=== PATIENT | female | born 1965 | race Caucasian/White ===

== ENCOUNTER 2017-03-24 17:58 | Emergency (ER) | payer MEDICARE ==
--- NOTE | 2017-03-24 18:56 | ED Physician Documentation ---
PD HPI Fall - Stated complaint Stated Complaint: TAIL BONE/ELBOW INJ - Chief complaint Chief Complaint: Ext Problem - History obtained from History obtained from: Patient - History of Present Illness Mechanism of injury: Slipped ([place]ing [place] and slipped on wet log, causing fall dirctly down onto her tailbone/sacrum. Pain tailbone and also lumbar area. history of lumbar pain on chronic meds, with current pain just midly above regular.) Fall distance: Standing position Where injury occurred: Other (beach) Timing - onset: Today Injury(ies) location: Back (low lumbar and sacral/tailbone area. right elbow laceration but good ROM.). No: Head, Neck, Chest, Abdomen Quality of pain: Pain, Aching, Sharp Associated symptoms: No: LOC, AMS Worsens with: Movement (standing and walking) Contributing factors: No: Anticoagulated Similar symptoms before: Has not had sx before (not usually pain in tailbone/ sacral area; has chronic pain in lumbar.) Recently seen: Not recently seen Review of Systems Constitutional: denies: Fever, Chills Ears: denies: Ear pain Nose: denies: Rhinorrhea / runny nose, Congestion Throat: denies: Sore throat Cardiac: denies: Chest pain / pressure, Palpitations Respiratory: denies: Cough GI: denies: Nausea, Vomiting, Diarrhea Skin: reports: Laceration (s) (right elbow). denies: Rash, Lesions Musculoskeletal: reports: Back pain (chronic with slightly worse than baseline since fall.). denies: Neck pain Neurologic: denies: Generalized weakness, Focal weakness, Numbness PD PAST MEDICAL HISTORY - Past Medical History Past Medical History: Yes Cardiovascular: High cholesterol, Angina, Arrhythmia Neuro: Headache/migraine GI: Diverticulitis Psych: Depression Musculoskeletal: Osteoarthritis, Fibromyalgia Derm: None Other Past Medical History: Vit B deficiency, Basal cell carcinoma, colitis gravis, degenerative disc disease, edema, fatigue, herniation of rectum into vagina, insomnia, Inflammatory spondylopathies, Systemic lupus erythematous, TMJ , uterine leiomyoma, - Present Medications Home Medications: Ambulatory Orders Medication Instructions Recorded Confirmed ALPRAZolam [Alprazolam] 0.5 mg PO TID PRN 03/24/17 03/24/17 Calcium Carbonate [Tums (Calcium 1,000 mg PO DAILY 03/24/17 03/24/17 Carbonate 500mg)] Cholecalciferol (Vitamin D3) 2,000 units PO DAILY 03/24/17 03/24/17 [Vitamin D3] Cyanocobalamin (Vitamin B-12) 50 mcg PO DAILY 03/24/17 03/24/17 [Vitamin B-12 (100mcg tab)] DULoxetine [Cymbalta] 90 mg PO DAILY 03/24/17 03/24/17 Fluticasone 110 Mcg [Flovent] 1 puffs INH BID 03/24/17 03/24/17 Fluticasone [Flonase] 1 spray SHAYY BID PRN 03/24/17 03/24/17 Levalbuterol Tartrate [Xopenex Hfa] 1 puffs INH Q4H PRN 03/24/17 03/24/17 Levalbuterol [Xopenex] 1.25 mg INH Q4H PRN 03/24/17 03/24/17 Methocarbamol 500 mg PO QID 03/24/17 03/24/17 Metoprolol Succinate 25 mg PO QID 03/24/17 03/24/17 Montelukast [Singulair] 10 mg PO QPM 03/24/17 03/24/17 Mycophenolate Mofetil 500 mg PO BID 03/24/17 03/24/17 Nortriptyline [Pamelor] 75 mg PO QPM 03/24/17 03/24/17 Oxycodone HCl/Acetaminophen 1 each PO TID PRN #15 tablet 03/24/17 [Percocet 7.5-325 mg Tablet] Pnv with Ca,No.72/Iron/FA [Preplus 1 tab PO DAILY 03/24/17 03/24/17 Ca-Fe 27 mg-FA 1 mg Tb] Potassium Chloride 40 meq PO DAILY 03/24/17 03/24/17 Prednisone 5 mg PO DAILY 03/24/17 03/24/17 Pregabalin [Lyrica] 75 mg PO TID 03/24/17 03/24/17 Prochlorperazine Maleate 10 mg PO Q8H PRN 03/24/17 03/24/17 Rosuvastatin Calcium [Crestor] 10 mg PO QPM 03/24/17 03/24/17 Tizanidine HCl 4 mg PO TID PRN 03/24/17 03/24/17 Torsemide 20 mg PO DAILY 03/24/17 03/24/17 diazePAM [Diazepam] 5 mg PO Q8H PRN 03/24/17 03/24/17 - Allergies Allergies/Adverse Reactions: Allergies Allergy/AdvReac Type Severity Reaction Status Date / Time epinephrine AdvReac Unknown Verified 03/24/17 18:07 - Social History Does the pt smoke?: No Smoking Status: Never smoker Does the pt drink ETOH?: Yes Does the pt have substance abuse?: No PD ED PE NORMAL - Vitals Vital signs reviewed: Yes - General General: Alert and oriented X 3, No acute distress, Well developed/nourished - HEENT HEENT: Atraumatic - Neck Neck: Supple, no meningeal sign, No bony TTP, No adenopathy - Cardiac Cardiac: RRR, No murmur - Respiratory Respiratory: Clear bilaterally - Abdomen Abdomen: Soft, Non tender - Back Back: No CVA TTP, Other (tender at lower sacral and coccygeal area without obvious defromity. Hips not tender and no pain with rotation nor impaction. ) - Derm Derm: Normal color, Warm and dry - Extremities Extremities: Normal ROM s pain (some soft tissue tender right posterior elbow, with 1 cm laceration. No FB and no deep structures. Full ROM of the elbow without effusion nor bony tenderness. ) - Neuro Neuro: Alert and oriented X 3, No motor deficit, Normal speech Eye Opening: Spontaneous Motor: Obeys Commands Verbal: Oriented GCS Score: 15 Results - Vitals Vitals: Oxygen O2 Source Room air - Rads (name of study) pelvis CT Radiology: Prelim report reviewed (low sacral fracture minimally displaced. ), EMP read contemporaneously PD MEDICAL DECISION MAKING - ED course Complexity details: reviewed results (nondisplaced sacral fracture low sacral without neuro symptoms. ), re-evaluated patient (chronic pain and chronic pain meds, which will be likely insufficient short term with new pelvic fracture. ), considered differential, d/w patient Departure - Departure Disposition: 01 Home, Self Care Clinical Impression: Fall from slip, trip, or stumble Qualifiers: Encounter type: initial encounter Qualified Code(s): W01.0XXA - Fall on same level from slipping, tripping and stumbling without subsequent striking against object, initial encounter Elbow laceration Qualifiers: Encounter type: initial encounter Laterality: right Qualified Code(s): S51.011A - Laceration without foreign body of right elbow, initial encounter Sacral fracture, closed Qualifiers: Encounter type: initial encounter Zone of sacrum fracture: unspecified portion of sacrum Qualified Code(s): S32.10XA - Unspecified fracture of sacrum, initial encounter for closed fracture Condition: Stable Record reviewed to determine appropriate education?: Yes Instructions: ED Laceration Ext Sutr Stap Tape, ED Fx Pelvis Follow-Up: Neida Lin MD [Primary Care Provider] - Prescriptions: Oxycodone HCl/Acetaminophen [Percocet 7.5-325 mg Tablet] 1 each PO TID PRN #15 tablet PRN Reason: Pain Comments: Percocet 3 times a day if needed for pains. Continue other usual medications. It is okay to wash and shower. Clean off the wound twice a day with soap and water, or peroxide and water. Apply some antibiotic ointment to it to keep it moist. Also to watch for signs of infection such as purulence, redness or increasing pain. Return to your primary care or the ER at the specified time for suture removal. Suture removal in 9 or 10 days. Discharge Date/Time: 03/24/17 20:56
[2017-03-24] MEDS ORDERED: HYDROmorphone 1 MG/ML SYRINGE IM STA (19:12)
[2017-03-24] MEDS ORDERED: KETOROLAC 60 MG/2 ML VIAL IM STA (19:12)
--- NOTE | 2017-03-24 20:19 | CT Report ---
EXAM: CT BONY PELVIS WITHOUT CONTRAST EXAM DATE: 03/24/2017 07:56 PM. CLINICAL HISTORY: Fell and landed on tailbone; pain in sacrum. COMPARISON: None. TECHNIQUE: Thin-section axial images were acquired of the pelvis without contrast. Post-processing: C oronal and sagittal reformats. Other: None. In accordance with CT protocol optimization, one or more of the following dose reduction techniques w ere utilized for this exam: automated exposure control, adjustment of mA and/or KV based on patient s ize, or use of iterative reconstructive technique. FINDINGS: Bones: There is a minimally displaced fracture involving the inferior most segment of the sacrum. No other fracture seen. There is sacralization of the L5 transverse processes bilaterally. Sacroiliac Joints: Mild bilateral degenerative changes. No diastases. Symphysis Pubis: Degenerative changes. No diastases. Right Hip: Mild joint space narrowing. There is marginal spurring and inferomedial aspect of the femo ral head. Accessory acetabular ossicle noted. Left Hip: Mild joint space narrowing. There is marginal spurring around the femoral head. Musculature: Normal. No fatty atrophy. Pelvic Cavity: Diverticulosis, no diverticulitis. The urinary bladder is unremarkable. Other: No lymphadenopathy. No free air or free fluid. The other visualized soft tissues are unremarka ble. IMPRESSION: 1. Minimally displaced fracture involving the inferior most segment of the sacrum. 2. Mild bilateral hip and sacroiliac joint degenerative changes. [facility] Referring Provider Line: [phone] SITE ID: [id number]
[2017-03-24 20:40] VITALS: BP 111/63
[2017-03-24] MEDS ORDERED: oxyCOD/ACETAMIN 5 MG/325 MG TABLET PO STA (20:42)
[2017-03-24] MEDS ORDERED: oxyCODONE/ACET 5/325 Prepack 4 PO STA (20:42)
== END 2017-03-24 20:56 | disposition home or self-care (01) ==
LOC: ED 17:58
DX: S32.10XA Unspecified fracture of sacrum, initial encounter for closed fracture (principal); S51.011A Laceration without foreign body of right elbow, initial encounter; W01.0XXA Fall on same level from slipping, tripping and stumbling without subsequent striking against object, initial encounter; Y93.01 Activity, walking, marching and hiking; Y92.832 Beach as the place of occurrence of the external cause; E78.00 Pure hypercholesterolemia, unspecified; I20.9 Angina pectoris, unspecified; I49.9 Cardiac arrhythmia, unspecified; M19.90 Unspecified osteoarthritis, unspecified site; M79.7 Fibromyalgia; M32.9 Systemic lupus erythematosus, unspecified
CPT/HCPCS: 72192; 96372; 99283; 99284; A9270; J1170

== ENCOUNTER 2017-03-25 14:55 | Outpatient (CLI) | payer MEDICARE ==
--- NOTE | 2017-03-25 18:54 | XRAY Report ---
THREE VIEW RIGHT ELBOW: 03/25/2017 CLINICAL INDICATION: Fall, pain. FINDINGS: AP, lateral, oblique views of the right elbow demonstrate no evidence of fracture or dislocation. No effusion is present. The joint spaces are preserved. No foreign body is seen in the soft tissues. IMPRESSION: NORMAL RIGHT ELBOW. TD: 03/25/2017 18:54
== END 2017-03-25 14:56 | disposition home or self-care (01) ==
LOC: DI 14:55
PROVIDERS: ATTEND Internal Medicine
DX: M25.521 Pain in right elbow (principal)

== ENCOUNTER 2017-05-03 15:00 | Outpatient (CLI) | payer MEDICARE | END 2017-05-03 15:01 | disposition home or self-care (01) | LOC: LAB.R 15:00 | PROVIDERS: ATTEND Internal Medicine | DX: R19.7 Diarrhea, unspecified (principal) | CPT/HCPCS: 87493 ==

== ENCOUNTER 2017-06-07 17:43 | Outpatient (CLI) | payer MEDICARE | END 2017-06-07 17:44 | disposition critical access hospital (66) | LOC: EMS 17:43 | PROVIDERS: ATTEND Surgery | DX: R29.898 Other symptoms and signs involving the musculoskeletal system (principal); W18.39XA Other fall on same level, initial encounter; Y92.000 Kitchen of unspecified non-institutional (private) residence as the place of occurrence of the external cause | CPT/HCPCS: A0425; A0429 ==

== ENCOUNTER 2017-06-07 17:59 | Emergency (ER) | payer MEDICARE ==
[2017-06-07] MEDS ORDERED: KETOROLAC 30 MG/ML VIAL IVP STA (18:35)
[2017-06-07] MEDS ORDERED: MORPHINE 10 MG/ML VIAL IVP STA (18:46)
--- NOTE | 2017-06-07 18:47 | ED Physician Documentation ---
History of Present Illness - Stated complaint Stated Complaint: L HIP PX - Chief complaint Chief Complaint: General - History obtained from History obtained from: Patient, Family, EMS - History of Present Illness Timing: Today Pain level max: 8 Pain level now: 5 Improved by: remaining still Worsened by: movement - Additonal information Additional information: Fernanda hip pain s/p fall in her kitchen today. States feels like her hip dislocated and relocated. Review of Systems Ten Systems: 10 systems reviewed and negative Ears: denies: Ear pain Throat: denies: Sore throat Cardiac: denies: Chest pain / pressure Respiratory: denies: Cough GI: denies: Abdominal Pain, Nausea, Vomiting, Diarrhea : denies: Dysuria, Frequency, Hesitancy Skin: denies: Rash Musculoskeletal: reports: Back pain (chronic, unchanged). denies: Neck pain Neurologic: denies: Focal weakness, Numbness, Headache, Head injury PD PAST MEDICAL HISTORY - Past Medical History Cardiovascular: High cholesterol, Angina, Arrhythmia Neuro: Headache/migraine GI: Diverticulitis Psych: Depression Musculoskeletal: Osteoarthritis, Fibromyalgia Derm: None - Present Medications Home Medications: Ambulatory Orders Medication Instructions Recorded Confirmed ALPRAZolam [Alprazolam] 0.5 mg PO TID PRN 03/24/17 03/24/17 Calcium Carbonate [Tums (Calcium 1,000 mg PO DAILY 03/24/17 03/24/17 Carbonate 500mg)] Cholecalciferol (Vitamin D3) 2,000 units PO DAILY 03/24/17 03/24/17 [Vitamin D3] Cyanocobalamin (Vitamin B-12) 50 mcg PO DAILY 03/24/17 03/24/17 [Vitamin B-12 (100mcg tab)] DULoxetine [Cymbalta] 90 mg PO DAILY 03/24/17 03/24/17 Fluticasone 110 Mcg [Flovent] 1 puffs INH BID 03/24/17 03/24/17 Fluticasone [Flonase] 1 spray HSAYY BID PRN 03/24/17 03/24/17 Levalbuterol Tartrate [Xopenex Hfa] 1 puffs INH Q4H PRN 03/24/17 03/24/17 Levalbuterol [Xopenex] 1.25 mg INH Q4H PRN 03/24/17 03/24/17 Methocarbamol 500 mg PO QID 03/24/17 03/24/17 Metoprolol Succinate 25 mg PO QID 03/24/17 03/24/17 Montelukast [Singulair] 10 mg PO QPM 03/24/17 03/24/17 Mycophenolate Mofetil 500 mg PO BID 03/24/17 03/24/17 Nortriptyline [Pamelor] 75 mg PO QPM 03/24/17 03/24/17 Oxycodone HCl/Acetaminophen 1 each PO TID PRN #15 tablet 03/24/17 [Percocet 7.5-325 mg Tablet] Pnv with Ca,No.72/Iron/FA [Preplus 1 tab PO DAILY 03/24/17 03/24/17 Ca-Fe 27 mg-FA 1 mg Tb] Potassium Chloride 40 meq PO DAILY 03/24/17 03/24/17 Prednisone 5 mg PO DAILY 03/24/17 03/24/17 Pregabalin [Lyrica] 75 mg PO TID 03/24/17 03/24/17 Prochlorperazine Maleate 10 mg PO Q8H PRN 03/24/17 03/24/17 Rosuvastatin Calcium [Crestor] 10 mg PO QPM 03/24/17 03/24/17 Tizanidine HCl 4 mg PO TID PRN 03/24/17 03/24/17 Torsemide 20 mg PO DAILY 03/24/17 03/24/17 diazePAM [Diazepam] 5 mg PO Q8H PRN 03/24/17 03/24/17 Naproxen 500 mg PO BID PRN #30 tablet 06/07/17 - Allergies Allergies/Adverse Reactions: Allergies Allergy/AdvReac Type Severity Reaction Status Date / Time epinephrine AdvReac Unknown Verified 03/24/17 18:07 - Social History Does the pt smoke?: No Smoking Status: Never smoker Does the pt drink ETOH?: Yes Does the pt have substance abuse?: No PD ED PE NORMAL - Vitals Vital signs reviewed: Yes - General General: Alert and oriented X 3, No acute distress - HEENT HEENT: Atraumatic, PERRL, Moist mucous membranes - Neck Neck: Supple, no meningeal sign, No bony TTP - Cardiac Cardiac: RRR - Respiratory Respiratory: No respiratory distress, Clear bilaterally - Abdomen Abdomen: Soft, Non tender, Non distended - Back Back: No spinal TTP - Derm Derm: Warm and dry - Extremities Extremities: No deformity, Other (TTP over the L hip. No deformity. NVI.) - Neuro Neuro: Alert and oriented X 3, No motor deficit, No sensory deficit - Psych Psych: Normal mood, Normal affect Results - Vitals Vitals: Vital Signs - 24 hr 06/07/17 21:33 Heart Rate 76 Respiratory 14 Rate Blood Pressure 113/76 O2 Saturation 96 Oxygen O2 Source Room air - Labs Labs: Laboratory Tests 06/07/17 06/07/17 19:05 19:05 WBC 6.6 RBC 4.72 Hgb 13.7 Hct 43.1 MCV 91.4 MCH 29.0 MCHC 31.7 L RDW 13.1 Plt Count 256 MPV 8.3 Neut # 4.7 Lymph # 1.1 L Ciales # 0.6 Eos # 0.1 Baso # 0.1 Absolute Nucleated RBC 0.00 Nucleated RBC % 0.0 Sodium 135 Potassium 3.6 Chloride 97 L Carbon Dioxide 29 Anion Gap 9.0 BUN 9 Creatinine 1.0 Estimated GFR (MDRD) 58 L Glucose 104 H Calcium 8.8 - Rads (name of study) L hip xray Radiology: Prelim report reviewed, EMP read contemporaneously, See rad report ( normal) PD MEDICAL DECISION MAKING - ED course Complexity details: reviewed results, re-evaluated patient, considered differential, d/w patient, d/w family ED course: Patient is a 51-year-old female who presents to the emergency department after a fall in her kitchen today. No acute findings on x-ray. She is ambulating well with the assistance of a walker. Pain well controlled on her normal pain medications. She requests Naprosyn as well for home. Will prescribe this for her. She has muscle relaxants and hydrocodone at home. No other acute injuries. Appears to have a left hip contusion. Patient counseled regarding signs and symptoms for which I believe and urgent re-evaluation would be necessary. Patient with good understanding of and agreement to plan and is comfortable going home at this time This document was made in part using voice recognition software. While efforts are made to proofread this document, sound alike and grammatical errors may occur. Counseled regarding missed fractures secondary to acute swelling and may need repeat xrays if not improving. Departure - Departure Disposition: Home, Self Care Clinical Impression: Contusion of hip, left Qualifiers: Encounter type: initial encounter Qualified Code(s): S70.02XA - Contusion of left hip, initial encounter Condition: Good Instructions: ED Contusion Hip Follow-Up: Neida Lin MD [Primary Care Provider] - Within 1 week Prescriptions: Naproxen 500 mg PO BID PRN #30 tablet PRN Reason: hip pain Comments: Your xrays are normal today. Return if you worsen continue your pain medications at home. Use the walker to help you at home. Use ice for the next 24 hours, then use heat. Discharge Date/Time: 06/07/17 21:50
--- NOTE | 2017-06-07 19:44 | XRAY Preliminary Report ---
Exam: XR HIP W/PELVIS 2-3V LT IMPRESSION: 1. No acute fracture. 2. Normal alignment. Bilateral hip arthritis. [facility] SITE ID: [id number]
--- NOTE | 2017-06-07 20:05 | XRAY Report ---
EXAM: LEFT HIP AND PELVIS RADIOGRAPHY EXAM DATE: 06/07/2017 07:29 PM. HISTORY: Left hip pain after fall. COMPARISONS: 03/24/[address] TECHNIQUE: 1 view of the pelvis and 1 view of the hip. FINDINGS: Bones: Normal. No fracture or bone lesion. Joints: Normal alignment. Moderate right and [id number] left hip joint space narrowing. Soft Tissues: Normal. No soft tissue swelling. IMPRESSION: 1. No acute fracture. 2. Normal alignment. Bilateral hip arthritis. [facility] Referring Provider Line: [phone] SITE ID: [id number]
[2017-06-07] MEDS ORDERED: HYDROcod/ACETAM 5/325 MG TABLET PO STA (20:44)
[2017-06-07 21:26] LABS: CALCIUM 8.8 mg/dL (8.5-10.3)
[2017-06-07 21:34] VITALS: BP 113/76
[2017-06-07 21:37] LABS: BASOPHILS # (AUTO) 0.1 10^3/uL (0.0-0.1); BASOPHILS % (AUTO) 1.2 %; EOSINOPHILS # (AUTO) 0.1 10^3/uL (0.0-0.7); EOSINOPHILS % (AUTO) 1.1 %; HGB - HEMOGLOBIN 13.7 g/dL (12.0-16.0); LYMPHOCYTES # (AUTO) 1.1 10^3/uL (1.5-3.5); LYMPHOCYTES % (AUTO) 17.3 %; MEAN CORPUSCULAR HGB CONC 31.7 g/dL (32.0-36.0); MEAN CORPUSCULAR VOLUME 91.4 fL (81.0-99.0); MEAN PLATELET VOLUME 8.3 fL (7.9-10.8); MONOCYTES # (AUTO) 0.6 10^3/uL (0.0-1.0); MONOCYTES % (AUTO) 8.7 %; NEUTROPHILS # (AUTO) 4.7 10^3/uL (1.5-6.6); NEUTROPHILS % (AUTO) 71.7 %; PLT - PLATELET COUNT 256 10^3/uL (130-450); RED BLOOD COUNT 4.72 10^6/uL (4.20-5.40); RED CELL DISTRIBUTION WIDTH 13.1 % (12.0-15.0); WHITE BLOOD COUNT 6.6 x10^3/uL (4.8-10.8)
== END 2017-06-07 21:50 | disposition home or self-care (01) ==
LOC: EDUNIT# → ED 17:59
DX: S70.02XA Contusion of left hip, initial encounter (principal); W19.XXXA Unspecified fall, initial encounter; E78.00 Pure hypercholesterolemia, unspecified
CPT/HCPCS: 36415; 73502; 80048; 85025; 96374; 96375; 99283; 99284; A9270

== ENCOUNTER 2017-07-20 13:52 | Outpatient (CLI) | payer MEDICARE ==
[2017-07-20] MEDS ORDERED: IOTHALAMATE MEGLUMINE 50 ML VIAL ONE (14:22)
[2017-07-20] MEDS ORDERED: GADOPENTETATE DIMEGLUMINE 5 ML VIAL IVP ONE ×2 (14:22→15:02)
[2017-07-20] MEDS ORDERED: IOTHALAMATE MEGLUMINE 50 ML VIAL IVP ONE (15:02)
[2017-07-20] MEDS ORDERED: BUFFERED LIDOCAINE 10 ML SYRINGE IU ONE (15:02)
--- NOTE | 2017-07-20 16:10 | XRAY Report ---
Procedure Date: 07/20/2017 Accession Number: [id number] / [id number] Procedure: FL - Arthrogram Needle Placement CPT Code: FULL RESULT: EXAM: Arthrogram Needle Placement DATE: 07/20/2017 2:57 PM CLINICAL HISTORY: LEFT HIP PAIN COMPARISON: None TECHNIQUE: Following obtaining informed consent, the patient's left hip was prepped and draped in the usual sterile fashion. The skin and soft tissues were anesthetized with lidocaine. A spinal needle was inserted into the left hip joint, and a combination of iodinated contrast, diluted gadolinium, and lidocaine was injected intra-articularly. The patient tolerated the procedure well. No immediate complications. FINDINGS: No evidence of contrast extravasation on spot image. IMPRESSION: Successful left hip injection for MRI arthrogram. Fluoroscopy time: 28 seconds; one spot image.
--- NOTE | 2017-07-20 18:29 | MRI Report ---
Procedure Date: 07/20/2017 Accession Number: [id number] / [id number] Procedure: MRI - Arthrogram Hip LT CPT Code: FULL RESULT: EXAM: LEFT HIP MRI ARTHROGRAM WITH CONTRAST EXAM DATE: 07/20/2017 03:20 PM. CLINICAL HISTORY: Left hip pain. History of dislocation one month ago. COMPARISON: None. TECHNIQUE: Multiplanar, multisequence T1-weighted and fluid-sensitive, small [id number] sequences of the hip and large [id number] sequences of the pelvis after an arthrographic injection of dilute gadolinium, dictated under a separate exam. Other: None. FINDINGS: Bones: Some red marrow reconversion. No fractures. No marrow edema. Left Hip: No acetabular retroversion. Femoral head/neck offset is within normal limits. No loose bodies. The articular cartilage is narrow but intact.. Anterior superior labral tear. Series 801 image 18, series 701 image 14. Ligamentum teres is torn. Lateral center edge angle is 40.5 degrees. Alpha angle is elevated at 58.0 degrees. Other Joints: The visualized lumbar spine, sacroiliac joints, symphysis pubis, and contralateral hip are unremarkable. Musculature: No edema or fatty atrophy. The gluteus medius muscle is intact; a small amount of intramuscular fluid is present. Attachment onto the greater trochanter is unremarkable. No partial or full-thickness tears. The visualized hamstring tendons are normal. The ischiofemoral space is normal. Pelvic Cavity: The visualized viscera are unremarkable. No lymphadenopathy. No free fluid in the pelvis. Other: The visualized sciatic nerves are unremarkable. No bursitis. The subcutaneous tissues are unremarkable. IMPRESSION: 1. Some mild red marrow reconversion; no fractures or marrow edema. 2. Anterior superior labral tear. Articular cartilage is slightly thinned but otherwise intact. Slightly elevated alpha angle also noted. 3. Full-thickness tear of the ligamentum teres. 4. Small amount of fluid is seen in the intramuscular septae surrounding the gluteus medius. No partial or full-thickness tears at the attachment. No intramuscular tears. [facility] MUSCULOSKELETAL RADIOLOGY SECTION
== END 2017-07-20 13:53 | disposition home or self-care (01) ==
LOC: DI 13:52
PROVIDERS: ATTEND Internal Medicine
DX: S73.102A Unspecified sprain of left hip, initial encounter (principal); S73.192A Other sprain of left hip, initial encounter
CPT/HCPCS: 27093; 73722; 77002; Q9961

== ENCOUNTER 2017-10-07 17:04 | Emergency (ER) | payer MEDICARE ==
--- NOTE | 2017-10-07 18:32 | ED Physician Documentation ---
PD HPI URI - Stated complaint Stated Complaint: CONGESTION/FEVER/MUSCLE ACHES - Chief complaint Chief Complaint: Resp - History obtained from History obtained from: Patient - History of Present Illness Timing - onset: How many days ago Timing duration: Days (2) Timing details: Abrupt onset Associated symptoms: Nasal congestion, Sinus pain, Sore throat, Dry cough. No: Fever, Productive cough Contributing factors: Immunocompromised. No: Sick contact, Travel Similar symptoms before: Has not had sx before Recently seen: Not recently seen Review of Systems Constitutional: reports: Myalgias, Fatigue. denies: Fever, Chills Nose: reports: Rhinorrhea / runny nose, Sinus pressure / pain Throat: reports: Sore throat Cardiac: denies: Chest pain / pressure Respiratory: reports: Cough. 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 - Present Medications Home Medications: Ambulatory Orders Medication Instructions Recorded Confirmed ALPRAZolam [Alprazolam] 0.5 mg PO TID PRN 03/24/17 03/24/17 Calcium Carbonate [Tums (Calcium 1,000 mg PO DAILY 03/24/17 03/24/17 Carbonate 500mg)] Cholecalciferol (Vitamin D3) 2,000 units PO DAILY 03/24/17 03/24/17 [Vitamin D3] Cyanocobalamin (Vitamin B-12) 50 mcg PO DAILY 03/24/17 03/24/17 [Vitamin B-12 (100mcg tab)] DULoxetine [Cymbalta] 90 mg PO DAILY 03/24/17 03/24/17 Fluticasone 110 Mcg [Flovent] 1 puffs INH BID 03/24/17 03/24/17 Fluticasone [Flonase] 1 spray SHAYY BID PRN 03/24/17 03/24/17 Levalbuterol Tartrate [Xopenex Hfa] 1 puffs INH Q4H PRN 03/24/17 03/24/17 Levalbuterol [Xopenex] 1.25 mg INH Q4H PRN 03/24/17 03/24/17 Methocarbamol 500 mg PO QID 03/24/17 03/24/17 Metoprolol Succinate 25 mg PO QID 03/24/17 03/24/17 Montelukast [Singulair] 10 mg PO QPM 03/24/17 03/24/17 Mycophenolate Mofetil 500 mg PO BID 03/24/17 03/24/17 Nortriptyline [Pamelor] 75 mg PO QPM 03/24/17 03/24/17 Oxycodone HCl/Acetaminophen 1 each PO TID PRN #15 tablet 03/24/17 [Percocet 7.5-325 mg Tablet] Pnv with Ca,No.72/Iron/FA [Preplus 1 tab PO DAILY 03/24/17 03/24/17 Ca-Fe 27 mg-FA 1 mg Tb] Potassium Chloride 40 meq PO DAILY 03/24/17 03/24/17 Prednisone 5 mg PO DAILY 03/24/17 03/24/17 Pregabalin [Lyrica] 75 mg PO TID 03/24/17 03/24/17 Prochlorperazine Maleate 10 mg PO Q8H PRN 03/24/17 03/24/17 Rosuvastatin Calcium [Crestor] 10 mg PO QPM 03/24/17 03/24/17 Tizanidine HCl 4 mg PO TID PRN 03/24/17 03/24/17 Torsemide 20 mg PO DAILY 03/24/17 03/24/17 diazePAM [Diazepam] 5 mg PO Q8H PRN 03/24/17 03/24/17 Naproxen 500 mg PO BID PRN #30 tablet 06/07/17 Clarithromycin [Biaxin] 500 mg PO BID #20 tablet 10/07/17 - Allergies Allergies/Adverse Reactions: Allergies Allergy/AdvReac Type Severity Reaction Status Date / Time epinephrine AdvReac Unknown Verified 03/24/17 18:07 - Social History Does the pt smoke?: No Smoking Status: Never smoker Does the pt drink ETOH?: Yes Does the pt have substance abuse?: No - Immunizations Immunizations are current?: Yes PD ED PE NORMAL - Vitals Vital signs reviewed: Yes - General General: Alert and oriented X 3, No acute distress, Well developed/nourished - HEENT HEENT: Ears normal, Moist mucous membranes, Pharynx benign - Neck Neck: Supple, no meningeal sign, No adenopathy - Cardiac Cardiac: RRR, No murmur - Respiratory Respiratory: Clear bilaterally - Abdomen Abdomen: Soft, Non tender - Derm Derm: Normal color, Warm and dry, No rash - Extremities Extremities: No tenderness to palpate - Neuro Neuro: Alert and oriented X 3, No motor deficit, Normal speech Results - Vitals Vitals: Vital Signs - 24 hr 10/07/17 10/07/17 17:10 19:12 Temperature 36 C L 36.5 C Heart Rate 82 88 Respiratory 20 20 Rate Blood Pressure 122/68 106/68 O2 Saturation 94 97 Oxygen O2 Source Room air - Labs Labs: Laboratory Tests 10/07/17 17:23 Influenza A (Rapid) Negative Influenza B (Rapid) Negative PD MEDICAL DECISION MAKING - ED course Complexity details: considered differential (likely viral but will treat with abx for potential sinusitis due to immunocompromise. ), d/w patient - Sepsis Event Vital Signs: Vital Signs - 24 hr 10/07/17 10/07/17 17:10 19:12 Temperature 36 C L 36.5 C Heart Rate 82 88 Respiratory 20 20 Rate Blood Pressure 122/68 106/68 O2 Saturation 94 97 Oxygen O2 Source Room air Departure - Departure Disposition: 01 Home, Self Care Clinical Impression: Upper respiratory infection Qualifiers: URI type: unspecified URI Qualified Code(s): J06.9 - Acute upper respiratory infection, unspecified Acute sinusitis Qualifiers: Sinusitis location: unspecified location Recurrence: non-recurrent Qualified Code(s): J01.90 - Acute sinusitis, unspecified Condition: Stable Record reviewed to determine appropriate education?: Yes Instructions: ED Sinusitis Abx Tx Follow-Up: Neida Lin MD [Primary Care Provider] - Prescriptions: Clarithromycin [Biaxin] 500 mg PO BID #20 tablet Comments: Drink lots of fluids. Consider increasing your prednisone from 5-10 mg for the next 5 days. Add Biaxin twice daily for 10 days for concern of sinus infection given your immune suppression. Use your Xopenex inhaler as needed at home. Recheck if not improving over the next few days. Discharge Date/Time: 10/07/17 19:29
[2017-10-07] MEDS ORDERED: CLARITHROMYCIN 500 MG TABLET PO STA (19:06)
[2017-10-07 19:13] VITALS: BP 106/68
== END 2017-10-07 19:29 | disposition home or self-care (01) ==
LOC: ED 17:04
DX: J06.9 Acute upper respiratory infection, unspecified (principal); J01.90 Acute sinusitis, unspecified
CPT/HCPCS: 87275; 87276; 99283; A9270

== ENCOUNTER 2017-10-18 12:18 | Outpatient (CLI) | payer MEDICARE ==
[2017-10-18 12:51] LABS: BASOPHILS # (AUTO) 0.1 10^3/uL (0.0-0.1); BASOPHILS % (AUTO) 1.2 %; EOSINOPHILS # (AUTO) 0.1 10^3/uL (0.0-0.7); EOSINOPHILS % (AUTO) 2.3 %; HGB - HEMOGLOBIN 13.5 g/dL (12.0-16.0); LYMPHOCYTES # (AUTO) 2.6 10^3/uL (1.5-3.5); LYMPHOCYTES % (AUTO) 43.2 %; MEAN CORPUSCULAR HEMOGLOBIN 30.3 pg (27.0-31.0); MEAN PLATELET VOLUME 7.4 fL (7.9-10.8); MONOCYTES # (AUTO) 0.6 10^3/uL (0.0-1.0); MONOCYTES % (AUTO) 9.8 %; NEUTROPHILS # (AUTO) 2.6 10^3/uL (1.5-6.6); NEUTROPHILS % (AUTO) 43.5 %; PLT - PLATELET COUNT 301 10^3/uL (130-450); RED BLOOD COUNT 4.45 10^6/uL (4.20-5.40); RED CELL DISTRIBUTION WIDTH 13.2 % (12.0-15.0); WHITE BLOOD COUNT 6.1 x10^3/uL (4.8-10.8)
[2017-10-18 13:06] LABS: CHOL/HDL RATIO 5.6 (<4.4); CHOLESTEROL 307 mg/dL; HDL CHOLESTEROL 55 mg/dL; LDL CHOLESTEROL,CALCULATED 185 mg/dL; LDL/HDL RATIO 3.4 (<4.4); VLDL CHOLESTEROL 67 mg/dL
[2017-10-18 13:17] LABS: ALBUMIN 3.9 g/dL (3.2-5.5); ALBUMIN/GLOBULIN RATIO 1.4 (1.0-2.2); BILIRUBIN,TOTAL 0.7 mg/dL (0.2-1.0); CALCIUM 9.2 mg/dL (8.5-10.3); CREATININE 1.1 mg/dL (0.4-1.0); TOTAL PROTEIN 6.6 g/dL (6.7-8.2)
--- NOTE | 2017-10-18 14:18 | Ultrasound Report ---
Reason: THYROID NODULE Procedure Date: 10/18/2017 Accession Number: [id number] / [id number] Procedure: US - Head or Neck Soft Tissue CPT Code: FULL RESULT: EXAM: THYROID ULTRASOUND EXAM DATE: 10/18/2017 01:45 PM. CLINICAL HISTORY: THYROID NODULE. COMPARISON: None. TECHNIQUE: Real time sonographic imaging of the thyroid was performed by the field account director. Multiple architectural representative static images were saved for review. FINDINGS: THYROID GLAND: Right Lobe: 5.0 x 1.9 x 1.6 cm, volume 8 cc. Heterogeneous appearance. Right Lobe Nodules: 4 x 3 x 2.5 mm superior pole nodule. Hypoechoic, spongiform, smooth margins, wider than tall, no calcifications. Left Lobe: 4.7 x 1.8 x 1.0 cm, volume 4 cc. Heterogeneous appearance. Left Lobe Nodules: Mid to upper pole nodule 5 x 4 x 3 mm. Hypoechoic, spongiform, smooth margins wider than tall, no calcifications. Isthmus: 0.3 cm AP. Isthmic Nodules: None. LYMPH NODES: No adenopathy demonstrated in the central or lateral compartment. IMPRESSION: Bilateral subcentimeter nodules as above. Right: Tirads 2. Not suspicious. No FNA. Left: Tirads 2. Not suspicious. No FNA. Management recommendations are based on 2015 [place] [employer] Management Guidelines for Adult Patients with Thyroid Nodules and Differentiated Thyroid Cancer. RADIA
== END 2017-10-18 12:19 | disposition home or self-care (01) ==
LOC: DI 12:18
PROVIDERS: ATTEND Internal Medicine
DX: E04.1 Nontoxic single thyroid nodule (principal); E78.5 Hyperlipidemia, unspecified; Z13.6 Encounter for screening for cardiovascular disorders; Z79.899 Other long term (current) drug therapy
CPT/HCPCS: 36415; 76536; 80053; 80061; 83721; 85025

== ENCOUNTER 2018-06-07 15:34 | Outpatient (CLI) | payer MEDICARE ==
[2018-06-07 16:02] LABS: CALCIUM 9.2 mg/dL (8.5-10.3); CREATININE 1.2 mg/dL (0.4-1.0)
== END 2018-06-07 15:35 | disposition home or self-care (01) ==
LOC: LAB 15:34
PROVIDERS: ATTEND Internal Medicine
DX: I50.32 Chronic diastolic (congestive) heart failure (principal)
CPT/HCPCS: 36415; 80048

== ENCOUNTER 2018-07-25 08:00 | Outpatient (CLI) | payer MEDICARE | END 2018-07-25 23:59 | disposition home or self-care (01) | LOC: LAB.R 08:00 | PROVIDERS: ATTEND Internal Medicine | DX: R19.7 Diarrhea, unspecified (principal) | CPT/HCPCS: 81599; 83630; 87045; 87046; 87177; 87209; 87329; 87493; 89055 ==

== ENCOUNTER 2018-08-08 08:47 | Inpatient (IN) | payer MEDICARE ==
[2018-08-08 09:59] LABS: BASOPHILS % (AUTO) 0.3 %; EOSINOPHILS % (AUTO) 0.4 %; HGB - HEMOGLOBIN 14.3 g/dL (12.0-16.0); LYMPHOCYTES # (AUTO) 1.9 10^3/uL (1.5-3.5); MEAN CORPUSCULAR HEMOGLOBIN 29.8 pg (27.0-31.0); MEAN CORPUSCULAR HGB CONC 32.4 g/dL (32.0-36.0); MEAN CORPUSCULAR VOLUME 91.9 fL (81.0-99.0); MEAN PLATELET VOLUME 9.9 fL (7.9-10.8); MONOCYTES % (AUTO) 10.2 %; NEUTROPHILS # (AUTO) 6.8 10^3/uL (1.5-6.6); NEUTROPHILS % (AUTO) 69.7 %; PLT - PLATELET COUNT 255 10^3/uL (130-450); RED CELL DISTRIBUTION WIDTH 13.1 % (12.0-15.0); WHITE BLOOD COUNT 9.8 x10^3/uL (4.8-10.8)
[2018-08-08] MEDS ORDERED: ONDANSETRON 4 MG/2 ML VIAL IVP STA ×3 (09:59→14:54)
[2018-08-08] MEDS ORDERED: HYDROmorphone 1 MG/ML CARPUJECT IVP STA ×3 (09:59→14:54)
[2018-08-08 10:00] LABS: ALBUMIN 4.1 g/dL (3.2-5.5); ALBUMIN/GLOBULIN RATIO 1.5 (1.0-2.2); BILIRUBIN,TOTAL 0.7 mg/dL (0.2-1.0); TOTAL PROTEIN 6.8 g/dL (6.7-8.2)
[2018-08-08] MEDS ORDERED: SODIUM CHLORIDE 0.45% 1,000 ML IV SCH (10:00)
--- NOTE | 2018-08-08 10:04 | ED Physician Documentation ---
PD HPI ABD PAIN - Stated complaint Stated Complaint: ABD PX - Chief complaint Chief Complaint: Abd Pain - History obtained from History obtained from: Patient, Family - History of Present Illness Timing - onset: Enter time (), Today Timing - duration: Hours Timing - details: Abrupt onset, Still present, Waxing and waning Quality: Sharp, Pain Location: RUQ Radiation: Chest Improved by: Laying still Worsened by: Moving, Breathing, Position, Palpation Associated symptoms: Nausea, Vomiting Similar symptoms before: Has not had sx before Recently seen: Not recently seen - Additional information Additional information: 52-year-old female with a history of irritable bowel colitis and lupus has deve loped acute abdominal pain at about 3 AM this morning. She had some vomiting associated with this the pain appears to be in the right upper quadrant it is undulating in nature and worse with breathing. She has not had this specific pain previously. 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 Review of Systems Constitutional: denies: Fever Eyes: denies: Decreased vision Ears: denies: Ear pain Nose: denies: Rhinorrhea / runny nose, Congestion Throat: denies: Sore throat Cardiac: denies: Chest pain / pressure, Palpitations, Pedal edema, Calf pain Respiratory: denies: Dyspnea, Cough, Wheezing GI: reports: Abdominal Pain, Nausea, Vomiting. 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 - Present Medications Home Medications: Ambulatory Orders Medication Instructions Recorded Confirmed ALPRAZolam [Alprazolam] 0.5 mg PO TID PRN 03/24/17 08/08/18 Calcium Carbonate [Tums (Calcium 1,000 mg PO DAILY 03/24/17 08/08/18 Carbonate 500mg)] Cholecalciferol (Vitamin D3) 2,000 units PO DAILY 03/24/17 08/08/18 [Vitamin D3] Cyanocobalamin (Vitamin B-12) 50 mcg PO DAILY 03/24/17 08/08/18 [Vitamin B-12 (100mcg tab)] DULoxetine [Cymbalta] 90 mg PO DAILY 03/24/17 08/08/18 Fluticasone 110 Mcg [Flovent] 1 puffs INH BID 03/24/17 08/08/18 Fluticasone [Flonase] 1 spray SHAYY BID PRN 03/24/17 08/08/18 Levalbuterol Tartrate [Xopenex Hfa] 1 puffs INH Q4H PRN 03/24/17 08/08/18 Levalbuterol [Xopenex] 1.25 mg INH Q4H PRN 03/24/17 08/08/18 Methocarbamol 500 mg PO QID PRN 03/24/17 08/08/18 Metoprolol Succinate 25 mg PO QID 03/24/17 08/08/18 Montelukast [Singulair] 10 mg PO QPM 03/24/17 08/08/18 Mycophenolate Mofetil 500 mg PO BID 03/24/17 08/08/18 Nortriptyline [Pamelor] 75 mg PO QPM 03/24/17 08/08/18 Pnv with Ca,No.72/Iron/FA [Preplus 1 tab PO DAILY 03/24/17 08/08/18 Ca-Fe 27 mg-FA 1 mg Tb] Potassium Chloride 80 meq PO DAILY 03/24/17 08/08/18 Prednisone 5 mg PO DAILY 03/24/17 08/08/18 Pregabalin [Lyrica] 75 mg PO TID 03/24/17 08/08/18 Prochlorperazine Maleate 10 mg PO Q8H PRN 03/24/17 08/08/18 Rosuvastatin Calcium [Crestor] 10 mg PO QPM 03/24/17 08/08/18 Tizanidine HCl 4 mg PO TID PRN 03/24/17 08/08/18 Torsemide 20 mg PO DAILY 03/24/17 08/08/18 diazePAM [Diazepam] 5 mg PO Q8H PRN 03/24/17 08/08/18 Naproxen 500 mg PO BID PRN #30 tablet 06/07/17 08/08/18 Benzonatate [Tessalon] 100 mg PO TID PRN 08/08/18 08/08/18 Hydrocodone/Acetaminophen 1 tab ORAL QID PRN 08/08/18 08/08/18 [Hydrocodone-Acetamin 10-325 mg] - Allergies Allergies/Adverse Reactions: Allergies Allergy/AdvReac Type Severity Reaction Status Date / Time adhesive tape Allergy Unknown Verified 08/08/18 11:20 albuterol Allergy Unknown Verified 08/08/18 11:20 leflunomide [From Arava] Allergy Hives Verified 08/08/18 09:46 levocetirizine Allergy Cramps Verified 08/08/18 11:20 levofloxacin [From Levaquin] Allergy Unknown Verified 08/08/18 09:47 minocycline Allergy Unknown Verified 08/08/18 11:20 epinephrine AdvReac Mild Unknown Verified 08/08/18 08:53 atorvastatin AdvReac Cramps Verified 08/08/18 11:20 - Social History Does the pt smoke?: No Smoking Status: Former smoker Does the pt drink ETOH?: Yes Does the pt have substance abuse?: No - Immunizations Immunizations are current?: Yes PD ED PE NORMAL - Vitals Vital signs reviewed: Yes (normal ) - General General: Well developed/nourished, Other (appears to be in pain with health promoter tone and flat affect and moaning. ) - HEENT HEENT: Atraumatic, PERRL, EOMI - Neck Neck: Supple, no meningeal sign, No bony TTP - Cardiac Cardiac: RRR, No murmur - Respiratory Respiratory: No respiratory distress, Clear bilaterally - Abdomen Abdomen: Soft, Other (RUQ tenderness to palpation with arrest of deep breathing with palpation. No RLQ pain ) - Back Back: No CVA TTP, No spinal TTP - Derm Derm: Normal color, Warm and dry, No rash - Extremities Extremities: No deformity, No edema - Neuro Neuro: Alert and oriented X 3, hardware developer 2-12 intact, No motor deficit, No sensory deficit, Normal speech Eye Opening: Spontaneous Motor: Obeys Commands Verbal: Oriented GCS Score: 15 - Psych Psych: Normal mood, Normal affect Results - Vitals Vitals: Vital Signs - 24 hr 08/08/18 08/08/18 08/08/18 08:51 09:13 10:26 Temperature 36.6 C 36.7 C Heart Rate 94 84 75 Respiratory 22 24 16 Rate Blood Pressure 130/73 124/69 125/74 O2 Saturation 98 100 99 08/08/18 08/08/18 11:08 12:19 Temperature 37 C 37 C Heart Rate 80 86 Respiratory 18 16 Rate Blood Pressure 114/72 135/88 H O2 Saturation 95 99 Oxygen O2 Source Room air - Labs Labs: Laboratory Tests 08/08/18 08/08/18 08/08/18 09:40 09:40 09:40 WBC 9.8 RBC 4.80 Hgb 14.3 Hct 44.1 MCV 91.9 MCH 29.8 MCHC 32.4 RDW 13.1 Plt Count 255 MPV 9.9 Neut # (Auto) 6.8 H Lymph # (Auto) 1.9 [place] # (Auto) 1.0 Eos # (Auto) 0.0 Baso # (Auto) 0.0 Absolute Nucleated RBC 0.00 Nucleated RBC % 0.0 Sodium 138 Potassium 3.4 L Chloride 100 L Carbon Dioxide 24 Anion Gap 14.0 H BUN 8 Creatinine 1.0 Estimated GFR (MDRD) 58 L Glucose 116 H Calcium 10.0 Total Bilirubin 0.7 AST 33 ALT 34 Alkaline Phosphatase 53 Troponin I < 0.04 Total Protein 6.8 Albumin 4.1 Globulin 2.7 Albumin/Globulin Ratio 1.5 Lipase 30 Urine Color Urine Clarity Urine pH Ur Specific [place] Urine Protein Urine Glucose (UA) Urine Ketones Urine Occult Blood Urine Nitrite Urine Bilirubin Urine Urobilinogen Ur Leukocyte Esterase Ur Microscopic Review Urine Culture Comments 08/08/18 11:52 WBC RBC Hgb Hct MCV MCH MCHC RDW Plt Count MPV Neut # (Auto) Lymph # (Auto) [place] # (Auto) Eos # (Auto) Baso # (Auto) Absolute Nucleated RBC Nucleated RBC % Sodium Potassium Chloride Carbon Dioxide Anion Gap BUN Creatinine Estimated GFR (MDRD) Glucose Calcium Total Bilirubin AST ALT Alkaline Phosphatase Troponin I Total Protein Albumin Globulin Albumin/Globulin Ratio Lipase Urine Color YELLOW Urine Clarity CLEAR Urine pH 8.5 H Ur Specific [place] 1.010 Urine Protein NEGATIVE Urine Glucose (UA) NEGATIVE Urine Ketones NEGATIVE Urine Occult Blood NEGATIVE Urine Nitrite NEGATIVE Urine Bilirubin NEGATIVE Urine Urobilinogen 0.2 (NORMAL) Ur Leukocyte Esterase NEGATIVE Ur Microscopic Review NOT INDICATED Urine Culture Comments NOT INDICATED - Rads (name of study) u/s gb Radiology: Prelim report reviewed (Impression: 1. Sonographic findings concerning for acute cholecystitis. Moderate fattey liver. Large region of focal fat sparing. No obvious mass or intrahepatic bile duct dilation. Normal common bile duct.), EMP read indepedently, See rad report Procedures - IVC sono (time) 1000 Bedside IVC sono: IVC measures (cm) (1.12), IVC collapsed c insp (cm) (complete), Dehydration (est 1 liter deficit) PD MEDICAL DECISION MAKING - ED course Complexity details: reviewed results, re-evaluated patient, considered differential, d/w patient, d/w family ED course: 52-year-old female with lupus with acute right upper quadrant pain has persistence of her pain she has improvement with pain medication and Zofran. Her ultrasound is consistent with acute cholecystitis and the patient will be admitted to same-day surgery. Dr. Skinner is consulted in the case and she will take the patient to the operating room today and recommends administration of cefoxitin. Departure - Departure Disposition: ED Transfer to [facility] Clinical Impression: Cholecystitis
--- NOTE | 2018-08-08 11:36 | Ultrasound Report ---
Reason: RUQ pain vomiting Procedure Date: 08/08/2018 Accession Number: [id number] / [id number] Procedure: US - Abdomen Limited CPT Code: FULL RESULT: EXAM: ABDOMEN ULTRASOUND LIMITED, RUQ EXAM DATE: 08/08/2018 11:03 AM. CLINICAL HISTORY: Right upper quadrant pain, vomiting. COMPARISON: None. TECHNIQUE: Real-time scanning was performed with static images obtained. FINDINGS: Liver: Liver parenchyma is heterogeneous and moderately hyperechoic. 6.4 x 2.7 x 3.9 cm. Hypoechoic region near the gallbladder fossa most compatible with area of focal fatty sparing noted. No discrete liver masses or intrahepatic bile duct dilation. However, evaluation for masses is limited secondary to the echogenicity. Right liver measures 14.4 cm. Main portal vein flow: Hepatopetal. Gallbladder: Gallbladder thickening with sonographic Dey's sign. Small gallstone is noted. No pericholecystic fluid. Biliary System: CBD measures 5.3 mm. No intrahepatic or extrahepatic ductal dilatation. Pancreas: Normal. Right kidney: 13.3 cm. Anechoic 3.2 x 2.2 x 2.4 cm superior right renal simple cyst. Additional smaller simple benign renal cysts are noted. No concerning features are noted. No hydronephrosis. Abdominal aorta and IVC: Normal. Other: Study limited by body habitus. IMPRESSION: 1. Sonographic findings concerning for acute cholecystitis. 2. Moderately fatty liver. Large region of focal fat sparing. No obvious mass or intrahepatic bile duct dilation. 3. Normal common bile duct. RADIA
[2018-08-08 11:59] LABS: BILIRUBIN,URINE NEGATIVE (NEGATIVE); GLUCOSE, URINE (UA) NEGATIVE (NEGATIVE); KETONES,URINE (UA) NEGATIVE (NEGATIVE); LEUKOCYTE ESTERASE, URINE NEGATIVE (NEGATIVE); NITRITE,URINE NEGATIVE (NEGATIVE); OCCULT BLOOD,URINE NEGATIVE (NEGATIVE); PH,URINE 8.5 PH (5.0-7.5); PROTEIN,URINE NEGATIVE (NEGATIVE); UROBILINOGEN,URINE 0.2 (NORMAL) E.U./dL (NORMAL)
[2018-08-08 12:01] LABS: CLARITY,URINE CLEAR (CLEAR)
[2018-08-08] MEDS ORDERED: cefOXitin 1 GM in SODIUM CHLORIDE 0.9% MINIBAG 100 ML IV STA ×2 (12:46→17:30)
[2018-08-08] MEDS ORDERED: SODIUM CHLORIDE 0.9% MINIBAG 100 ML IV ONE (13:22)
[2018-08-08] MEDS ORDERED: BUPIVACAINE 0.5%-EPI 1:200000 PF 30 ML VIAL ONE (13:56)
[2018-08-08] MEDS ORDERED: LIDOCAINE 1% 50 ML MDV ONE (13:57)
--- NOTE | 2018-08-08 14:58 | ANESTHESIA ---
Pre-Anesthesia VS, & Labs - Diagnosis cholecystitis - Procedure laparoscopic cholecystectomy Vital Signs: Temp Pulse Resp BP Pulse Ox 37 C 85 12 128/71 100 08/08/18 13:18 08/08/18 14:18 08/08/18 14:18 08/08/18 14:18 08/08/18 14:18 Height 6 ft Weight (kg) 120.656 kg Body Mass Index 36.1 - NPO >8 hours - Is Patient ?: No - Lab Results Current Lab Results: Laboratory Tests 08/08/18 09:40: Troponin I < 0.04 08/08/18 09:40: Sodium 138, Potassium 3.4 L, Chloride 100 L, Carbon Dioxide 24, Anion Gap 14.0 H, BUN 8, Creatinine 1.0, Estimated GFR (MDRD) 58 L, Glucose 116 H, Calcium 10.0, Total Bilirubin 0.7, AST 33, ALT 34, Alkaline Phosphatase 53, Total Protein 6.8, Albumin 4.1, Globulin 2.7, Albumin/Globulin Ratio 1.5, Lipase 30 08/08/18 09:40: WBC 9.8, RBC 4.80, Hgb 14.3, Hct 44.1, MCV 91.9, MCH 29.8, MCHC 32.4, RDW 13.1, Plt Count 255, MPV 9.9, Neut # (Auto) 6.8 H, Lymph # (Auto) 1.9, [place] # (Auto) 1.0, Eos # (Auto) 0.0, Baso # (Auto) 0.0, Absolute Nucleated RBC 0.00, Nucleated RBC % 0.0 Fish Bones: 08/08/18 09:40 08/08/18 09:40 Home Medications and Allergies Home Medications: Ambulatory Orders Benzonatate [Tessalon] 100 mg PO TID PRN 08/08/18 Hydrocodone/Acetaminophen [Hydrocodone-Acetamin 10-325 mg] 1 tab ORAL QID PRN 08/08/18 Active Medications Sodium Chloride (Normal Saline 0.45%) 1,000 mls @ 0 mls/hr IV .Q0M LEILA Last Infusion: 08/08/18 11:10 Dose: Infused ALPRAZolam [Alprazolam] 0.5 mg PO TID PRN 03/24/17 Calcium Carbonate [Tums (Calcium Carbonate 500mg)] 1,000 mg PO DAILY 03/24/17 Cholecalciferol (Vitamin D3) [Vitamin D3] 2,000 units PO DAILY 03/24/17 Cyanocobalamin (Vitamin B-12) [Vitamin B-12 (100mcg tab)] 50 mcg PO DAILY 03/24/17 DULoxetine [Cymbalta] 90 mg PO DAILY 03/24/17 Fluticasone 110 Mcg [Flovent] 1 puffs INH BID 03/24/17 Fluticasone [Flonase] 1 spray SHAYY BID PRN 03/24/17 Levalbuterol Tartrate [Xopenex Hfa] 1 puffs INH Q4H PRN 03/24/17 Levalbuterol [Xopenex] 1.25 mg INH Q4H PRN 03/24/17 Methocarbamol 500 mg PO QID PRN 03/24/17 Metoprolol Succinate 25 mg PO QID 03/24/17 Montelukast [Singulair] 10 mg PO QPM 03/24/17 Mycophenolate Mofetil 500 mg PO BID 03/24/17 Nortriptyline [Pamelor] 75 mg PO QPM 03/24/17 Pnv with Ca,No.72/Iron/FA [Preplus Ca-Fe 27 mg-FA 1 mg Tb] 1 tab PO DAILY 03/24/17 Potassium Chloride 80 meq PO DAILY 03/24/17 Prednisone 5 mg PO DAILY 03/24/17 Pregabalin [Lyrica] 75 mg PO TID 03/24/17 Prochlorperazine Maleate 10 mg PO Q8H PRN 03/24/17 Rosuvastatin Calcium [Crestor] 10 mg PO QPM 03/24/17 Tizanidine HCl 4 mg PO TID PRN 03/24/17 Torsemide 20 mg PO DAILY 03/24/17 diazePAM [Diazepam] 5 mg PO Q8H PRN 03/24/17 Benzonatate [Tessalon] 100 mg PO TID PRN 08/08/18 Hydrocodone/Acetaminophen [Hydrocodone-Acetamin 10-325 mg] 1 tab ORAL QID PRN 08/08/18 Allergies/Adverse Reactions: Allergies Allergy/AdvReac Type Severity Reaction Status Date / Time adhesive tape Allergy Unknown Verified 08/08/18 11:20 albuterol Allergy Unknown Verified 08/08/18 11:20 leflunomide [From Arava] Allergy Hives Verified 08/08/18 09:46 levocetirizine Allergy Cramps Verified 08/08/18 11:20 levofloxacin [From Levaquin] Allergy Unknown Verified 08/08/18 09:47 minocycline Allergy Unknown Verified 08/08/18 11:20 epinephrine AdvReac Mild Unknown Verified 08/08/18 08:53 atorvastatin AdvReac Cramps Verified 08/08/18 11:20 Anes History & Medical History - Medical History Cardiovascular: reports: High cholesterol, Angina, Arrhythmia Pulmonary: reports: Asthma Gastrointestinal: reports: Diverticulitis Neuro: reports: Migraines Musculoskeletal: reports: Osteoarthritis, Fibromyalgia Skin: reports: None Smoking Status: Former smoker - Surgical History Gynecologic: section, 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
[2018-08-08] MEDS ORDERED: LACTATED RINGERS 1,000 ML IV ONE ×2 (16:36→18:38)
[2018-08-08] MEDS ORDERED: ONDANSETRON 4 MG/2 ML VIAL ONE (16:43)
--- NOTE | 2018-08-08 17:19 | HISTORY & PHYSICAL EXAMINATION ---
Chief Complaint - Chief Complaint Chief Complaint: Abdominal pain with nausea and vomiting History of Present Illness - Admitted From Admitted From:: Emergency Department - History Obtained From Records Reviewed: Nurse's notes and Dr's notes, chart History obtained from: Patient and spouse Exam Limitations: Patient discomfort - History of Present Illness HPI Comment/Other: Yenni is a 52-year-old lady who presented to the emergency room this morning. She reports that she woke up in the middle of the night around 2 or 3 AM with severe pain in her right upper quadrant. She says it felt that it was tight and hard and extremely uncomfortable. This was associated with nausea and she vomited at least one time. She says that she initially did not think she never had this pain before but now looking back on it she can think of several other times when she has had a similar pain but not as severe. She wonders if her g allbladder has been acting up over the past several years. Yenni has a significant past medical history and reports that "everything always goes wrong for me".She denies any recent rashes or itching. She denies any sick contacts. She denies any unexplained weight loss or night sweats.This episode has not been associated with fever. History - Past Medical History Cardiovascular: reports: High cholesterol, Angina, Arrhythmia Respiratory: reports: Asthma Neuro: reports: Migraines GI: reports: Diverticulitis Psych: reports: Depression Musculoskeletal: reports: Osteoarthritis, Fibromyalgia Derm: reports: None MRSA Hx?: No - Past Surgical History /RAMP BOSS: reports: section, Breast reduction (laparoscopic RAMP BOSS), Other (l) Meds/Allgy - Home Medications Home Medications: Ambulatory Orders Medication Instructions Recorded Confirmed ALPRAZolam [Alprazolam] 0.5 mg PO TID PRN 03/24/17 08/08/18 Calcium Carbonate [Tums (Calcium 1,000 mg PO DAILY 03/24/17 08/08/18 Carbonate 500mg)] Cholecalciferol (Vitamin D3) 2,000 units PO DAILY 03/24/17 08/08/18 [Vitamin D3] Cyanocobalamin (Vitamin B-12) 50 mcg PO DAILY 03/24/17 08/08/18 [Vitamin B-12 (100mcg tab)] DULoxetine [Cymbalta] 90 mg PO DAILY 03/24/17 08/08/18 Fluticasone 110 Mcg [Flovent] 1 puffs INH BID 03/24/17 08/08/18 Fluticasone [Flonase] 1 spray SHAYY BID PRN 03/24/17 08/08/18 Levalbuterol Tartrate [Xopenex Hfa] 1 puffs INH Q4H PRN 03/24/17 08/08/18 Levalbuterol [Xopenex] 1.25 mg INH Q4H PRN 03/24/17 08/08/18 Methocarbamol 500 mg PO QID PRN 03/24/17 08/08/18 Metoprolol Succinate 25 mg PO QID 03/24/17 08/08/18 Montelukast [Singulair] 10 mg PO QPM 03/24/17 08/08/18 Mycophenolate Mofetil 500 mg PO BID 03/24/17 08/08/18 Nortriptyline [Pamelor] 75 mg PO QPM 03/24/17 08/08/18 Pnv with Ca,No.72/Iron/FA [Preplus 1 tab PO DAILY 03/24/17 08/08/18 Ca-Fe 27 mg-FA 1 mg Tb] Potassium Chloride 80 meq PO DAILY 03/24/17 08/08/18 Prednisone 5 mg PO DAILY 03/24/17 08/08/18 Pregabalin [Lyrica] 75 mg PO TID 03/24/17 08/08/18 Prochlorperazine Maleate 10 mg PO Q8H PRN 03/24/17 08/08/18 Rosuvastatin Calcium [Crestor] 10 mg PO QPM 03/24/17 08/08/18 Tizanidine HCl 4 mg PO TID PRN 03/24/17 08/08/18 Torsemide 20 mg PO DAILY 03/24/17 08/08/18 diazePAM [Diazepam] 5 mg PO Q8H PRN 03/24/17 08/08/18 Naproxen 500 mg PO BID PRN #30 tablet 06/07/17 08/08/18 Benzonatate [Tessalon] 100 mg PO TID PRN 08/08/18 08/08/18 Hydrocodone/Acetaminophen 1 tab ORAL QID PRN 08/08/18 08/08/18 [Hydrocodone-Acetamin 10-325 mg] - Allergies Allergies/Adverse Reactions: Allergies Allergy/AdvReac Type Severity Reaction Status Date / Time adhesive tape Allergy Unknown Verified 08/08/18 11:20 albuterol Allergy Unknown Verified 08/08/18 11:20 leflunomide [From Arava] Allergy Hives Verified 08/08/18 09:46 levocetirizine Allergy Cramps Verified 08/08/18 11:20 levofloxacin [From Levaquin] Allergy Unknown Verified 08/08/18 09:47 minocycline Allergy Unknown Verified 08/08/18 11:20 epinephrine AdvReac Mild Unknown Verified 08/08/18 08:53 atorvastatin AdvReac Cramps Verified 08/08/18 11:20 Review of Systems - Constitutional Constitutional: reports: Fatigue, Malaise, Weakness - Eyes Eyes: denies: Pain, Irritation - Ears, Nose & Throat Ears, Nose & Throat: denies: Tinnitus, Vertigo, Hoarseness - Cardiovascular Cariovascular: reports: Edema, Lightheadedness. denies: Irregular heart rate, Palpitations, Chest pain - Respiratory Respiratory: denies: Cough, Wheezing - Gastrointestinal Gastrointestinal: reports: Abdominal pain, Nausea, Vomiting, Reflux/heartburn, Poor appetite - Genitourinary Genitourinary: denies: Dysuria, Frequency, Urgency - Musculoskeletal Musculoskeletal: reports: Muscle pain, Back pain, Muscle aches, Stiffness - Integumentary Integumentary: denies: Rash - Neurological Neurological: denies: Focal weakness, Pre-existing deficit Exam - Vital Signs Reviewed Vital Signs: Yes Vital Signs: Vital Signs x48h Temp Pulse Resp BP Pulse Ox 08/08/18 16:37 89 14 128/74 97 08/08/18 15:37 37.1 C 88 14 135/82 H 96 08/08/18 14:54 37.1 C 84 18 136/78 H 100 08/08/18 14:18 85 12 128/71 100 08/08/18 13:18 37 C 93 20 131/81 H 100 08/08/18 12:19 37 C 86 16 135/88 H 99 08/08/18 11:08 37 C 80 18 114/72 95 08/08/18 10:26 75 16 125/74 99 - Physical Exam General Appearance: positive: Alert, Mild distress Eyes Bilateral: positive: Normal inspection, PERRL, EOMI ENT: positive: ENT inspection nml, Pharynx nml Neck: positive: Nml inspection, No JVD, Trachea midline Respiratory: positive: Chest non-tender, No respiratory distress, Breath sounds nml Cardiovascular: positive: Regular rate & rhythm, No murmur Peripheral Pulses: positive: 1+ Abdomen: positive: Nml bowel sounds (Tender to palpation in the epigastrium and right upper quadrant. Some voluntary guarding but no true rebound.), Tenderness, Guarding. negative: Rebound Back: positive: CVA tenderness (R), CVA tenderness (L) Skin: positive: Color nml, No rash Conclusion/Plan - Problem List (1) Cholecystitis Conclusion/Plan: I have recommended that we proceed to the operating room for laparoscopic cholecystectomy with indicated procedures. We discussed the risks and benefits the procedure and the patient is expressed a desire to complete it today. - Lab Results Fish Bones: 08/08/18 09:40 08/08/18 09:40 - Diagnostic Imaging Results Diagnostic Imaging Results: positive: Final report reviewed Diagnostic Imaging Results Comments: Final Report PT NAME: YENNI NORTON MR#: [id number] REG ER/ED AGE: 52 CI DT/TM: 08/08/1802/26/1001 PCP: Neida Lin MD : [id number] ATT: SEX: F ORD: Iron frederick MD EXAM: [id number] US/ABDLTD ([id number]) Reason: RUQ pain vomiting Procedure Date: 08/08/2018 Accession Number: [id number] / [id number] Procedure: US - Abdomen Limited CPT Code: FULL RESULT: EXAM: ABDOMEN ULTRASOUND LIMITED, RUQ EXAM DATE: 08/08/2018 11:03 AM. CLINICAL HISTORY: Right upper quadrant pain, vomiting. COMPARISON: None. TECHNIQUE: Real-time scanning was performed with static images obtained. FINDINGS: Liver: Liver parenchyma is heterogeneous and moderately hyperechoic. 6.4 x 2.7 x 3.9 cm. Hypoechoic region near the gallbladder fossa most compatible with area of focal fatty sparing noted. No discrete liver masses or intrahepatic bile duct dilation. However, evaluation for masses is limited secondary to the echogenicity. Right liver measures 14.4 cm. Main portal vein flow: Hepatopetal. Gallbladder: Gallbladder thickening with sonographic Dey's sign. Small gallstone is noted. No pericholecystic fluid. Biliary System: CBD measures 5.3 mm. No intrahepatic or extrahepatic ductal dilatation. Pancreas: Normal. Right kidney: 13.3 cm. Anechoic 3.2 x 2.2 x 2.4 cm superior right renal simple cyst. Additional smaller simple benign renal cysts are noted. No concerning features are noted. No hydronephrosis. Abdominal aorta and IVC: Normal. Other: Study limited by body habitus. IMPRESSION: 1. Sonographic findings concerning for acute cholecystitis. 2. Moderately fatty liver. Large region of focal fat sparing. No obvious mass or intrahepatic bile duct dilation. 3. Normal common bile duct. [employer] Consultant: Reading Radiologist: Lily Lopez MD Releasing Radiologist: Lily Lopez MD Released Date Time: 08/08/18 1200
[2018-08-08] MEDS ORDERED: cefOXitin 2 GM VIAL IV ONE (17:41)
[2018-08-08] MEDS ORDERED: metroNIDAZOLE 500 MG/100 ML 500 MG/100 ML BAG ONE (17:45)
[2018-08-08] MEDS ORDERED: METOCLOPRAMIDE 10 MG/2 ML VIAL IVP ONE (18:00)
[2018-08-08] MEDS ORDERED: DEXAMETHASONE 4 MG/ML VIAL IVP ONE (18:00)
[2018-08-08] MEDS ORDERED: raNITIdine INJ 25 MG/ML VIAL IV ONE (18:00)
[2018-08-08] MEDS ORDERED: ONDANSETRON 4 MG/2 ML VIAL IVP ONE (18:00)
[2018-08-08] MEDS ORDERED: LIDOCAINE-MPF 2% 5 ML VIAL IM ONE (18:00)
[2018-08-08] MEDS ORDERED: ACETAMINOPHEN 1,000 MG/100 ML 100 ML IV ONE (18:00)
[2018-08-08] MEDS ORDERED: ROCURONIUM 50 MG/5 ML VIAL IVP ONE (18:00)
[2018-08-08] MEDS ORDERED: KETOROLAC 30 MG/ML VIAL IVP ONE (18:00)
[2018-08-08] MEDS ORDERED: fentaNYL 250 MCG/5 ML VIAL IVP ONE (18:00)
[2018-08-08] MEDS ORDERED: PROPOFOL 200 MG/20 ML VIAL IVP ONE (18:00)
[2018-08-08] MEDS ORDERED: LIDOCAINE 1% 10 ML MDV SUBQ ONE (18:03)
[2018-08-08] MEDS ORDERED: BUPIVACAINE 0.5%-EPI 1:200000 PF 30 ML VIAL SUBQ ONE (18:04)
--- NOTE | 2018-08-08 18:26 | OPERATIVE REPORT ---
Operative Report - General Procedure Date: 08/08/18 Planned Procedure: Laparoscopic Cholecystectomy Pre-Op Diagnosis: Acute cholecystitis Procedure Performed: Laparoscopic Cholecystectomy with lysis of adhesions and repair of small bowel enterotomy Post Op Diagnosis: Acute Cholecystitis, Intra-abdominal adhesions - Procedure Note Primary Surgeon: Sis Anesthesia Provider: Qamar Anesthesia Technique: General ET tube, Local Pathology: Gall bladder in formalin to pathology Estimated Blood Loss (mL): 50 Complications: Small bowel enterotomy - repaired primarily - Other Other Information/Narrative: After obtaining informed consent, the patient is brought to the operating room and placed in the supine position on the operating table. Following successful induction of general endotracheal anesthesia, appropriate padding of all bony prominences, and placement of appropriate monitors, the abdomen is prepped and draped in the standard surgical fashion. A timeout was held per [facility] protocol. Following infiltration with local anesthetic to create a field block, an incision was created about 4 cm superior to the umbilicus and carried down through the skin and subcutaneous tissue removed to reveal the fascia below.2-0 Vicryl retention sutures were placed on either side of the midline and the abdomen was entered under direct vision using a 15 blade scalpel.We immediately encountered succus consistent with small bowel contents. Further inspection revealed a 1 cm opening in a loop of small bowel that was densely adherent to the anterior abdominal wall at the incision site and for approximately 4 cm superior to the incision.The enterotomy was carefully closed in 2 layers with interrupted silk suture. The loop of bowel was then carefully liberated from the abdominal wall with sharp dissection and gentle traction and countertraction.This created the space and freed us to continue with a lap scopic cholecystectomy.A 10 mm blunt Ahuja balloon trocar was placed in this opening.The abdomen was insufflated to 15 mmHg pressure. The patient was placed in reverse Trendelenburg position with the left side rotated toward the floor.Inspection of the peritoneal cavity revealed a distended but not obviously infected gallbladder in the usual position of the right upper quadrant. There were no other gross abnormalities.Under direct vision, a second 5 mm trocar was placed in the epigastrium and 2 more in the right upper quadrant. All of these were placed after local anesthetic infiltration.The fundus of the gallbladder was then grasped and elevated up over the liver to reveal the cholecysto hepatoduodenal ligament. The cystic duct and artery were carefully defined. The cystic duct was clipped 3 times proximally once distally and divided. The cystic artery was clipped twice proximally once distally and divided. The gallbladder was then liberated from its bed in the liver using Bovie cautery. It was placed in a bag and removed via the umbilical port with the camera in the epigastric position. The camera was then replaced in the abdomen. The abdominal cavity was insufflated with 1 L of warm saline solution and aspirated free of all fluid and particulate matter. The trochars were then removed under direct vision.The abdomen was desufflated. The umbilical incision was closed with interrupted 0 Vicryl suture and the skin of the umbilical site was closed with interrupted nylon. These nylons were packed in between with plain quarter inch Nu Gauze. A dry dressing was applied here. The other 3 incisions were closed with interrupted Monocryl sutures and Dermabond was applied. All sponge, needle, and instrument counts were correct at the conclusion of the case. The patient was allowed to awake from anesthesia without difficulty and taken to the postanesthesia care unit in good condition.
[2018-08-08] MEDS ORDERED: oxyCODONE 5 MG TABLET PO PRN (18:31)
[2018-08-08] MEDS ORDERED: FLUTICASONE NASAL SPRAY NAS PRN (18:37)
[2018-08-08] MEDS ORDERED: BENZONATATE 100 MG CAPSULE PO PRN (18:37)
[2018-08-08] MEDS ORDERED: LEVALBUTEROL 1.25 MG/3 ML NEB INH PRN (18:37)
[2018-08-08] MEDS ORDERED: LEVALBUTEROL TARTRATE INH PRN (18:37)
[2018-08-08] MEDS ORDERED: ALPRAZolam 0.25 MG TABLET PO PRN (18:37)
[2018-08-08] MEDS ORDERED: METHOCARBAMOL 500 MG TABLET PO PRN (18:37)
[2018-08-08] MEDS ORDERED: PROMETHAZINE 25 MG/1 ML VIAL ONE (18:52)
[2018-08-08] MEDS: fentaNYL 100 MCG/2 ML VIAL ONE ×4 (18:57→19:20)
[2018-08-08] MEDS ORDERED: tiZANidine 4 MG TABLET PO PRN (20:16)
[2018-08-08] MEDS: KETOROLAC 15 MG/ML VIAL IVP PRN (20:29)
[2018-08-08] MEDS: PANTOPRAZOLE 40 MG VIAL IVP SCH (20:42)
[2018-08-08] MEDS: MYCOPHENOLATE MOFETIL 250 MG CAPSULE PO SCH (20:42)
[2018-08-08] MEDS: NORTRIPTYLINE 25 MG CAPSULE PO SCH (20:43)
[2018-08-08] MEDS: MONTELUKAST 10 MG TABLET PO SCH (20:44)
[2018-08-08] MEDS: DEXTROSE 5%-0.9% NACL 1,000 ML IV SCH (20:45)
[2018-08-08] MEDS ORDERED: BUDESONIDE 0.5 MG/2 ML NEB INH SCH (21:00)
[2018-08-08] MEDS ORDERED: NON FORMULARY MED (Rosuvastatin Calcium [Crestor] 10 MG) PO SCH (21:00)
[2018-08-08] MEDS ORDERED: METOPROLOL SUCCINATE 25 MG TABLET PO SCH (21:00)
[2018-08-08] MEDS ORDERED: PREGABALIN 25 MG CAPSULE PO SCH (22:00)
[2018-08-08] MEDS: GABAPENTIN 300 MG CAPSULE PO SCH (22:27)
[2018-08-08] MEDS: HYDROmorphone 0.5 MG/0.5 ML SYRINGE IVP PRN (22:27)
[2018-08-09] MEDS ORDERED: PIPERACILLIN/TAZOBACTAM 3.375 GM in SODIUM CHLORIDE 0.9% MINIBAG 100 ML IV ONE ×2
[2018-08-09] MEDS: ONDANSETRON 4 MG/2 ML VIAL IVP PRN (00:09)
[2018-08-09] MEDS: HYDROmorphone 0.5 MG/0.5 ML SYRINGE IVP PRN ×4 (00:10→18:10)
[2018-08-09] MEDS: metroNIDAZOLE 500 MG/100 ML 500 MG/100 ML BAG IV SCH ×3 (01:56→17:52)
[2018-08-09] MEDS: METOPROLOL SUCCINATE 25 MG TABLET PO SCH ×3 (03:06→13:41)
[2018-08-09] MEDS: KETOROLAC 15 MG/ML VIAL IVP PRN (03:13)
[2018-08-09] MEDS: SODIUM CHLORIDE FLUSH 0.9% 10 ML SYRINGE IVP SCH ×3 (03:49→17:53)
[2018-08-09 05:09] LABS: BASOPHILS % (AUTO) 0.2 %; EOSINOPHILS % (AUTO) 0.5 %; HGB - HEMOGLOBIN 12.8 g/dL (12.0-16.0); LYMPHOCYTES % (AUTO) 3.1 %; MEAN CORPUSCULAR HEMOGLOBIN 30.8 pg (27.0-31.0); MEAN CORPUSCULAR VOLUME 96.2 fL (81.0-99.0); MEAN PLATELET VOLUME 9.8 fL (7.9-10.8); MONOCYTES % (AUTO) 6.6 %; NEUTROPHILS % (AUTO) 89.1 %; PLT - PLATELET COUNT 191 10^3/uL (130-450); RED BLOOD COUNT 4.16 10^6/uL (4.20-5.40); RED CELL DISTRIBUTION WIDTH 13.2 % (12.0-15.0); WHITE BLOOD COUNT 8.6 x10^3/uL (4.8-10.8)
[2018-08-09 05:15] LABS: ABNORMAL LYMPHS % (MANUAL) 0 %
[2018-08-09 05:17] LABS: ALBUMIN 3.1 g/dL (3.2-5.5); ALBUMIN/GLOBULIN RATIO 1.2 (1.0-2.2); BILIRUBIN,TOTAL 0.8 mg/dL (0.2-1.0); CALCIUM 8.2 mg/dL (8.5-10.3); CREATININE 1.1 mg/dL (0.4-1.0); TOTAL PROTEIN 5.7 g/dL (6.7-8.2)
[2018-08-09] MEDS: SODIUM CHLORIDE FLUSH 0.9% 10 ML SYRINGE IVP PRN ×3 (06:28→18:12)
[2018-08-09] MEDS: GABAPENTIN 300 MG CAPSULE PO SCH ×3 (06:28→21:42)
[2018-08-09] MEDS: PANTOPRAZOLE 40 MG VIAL IVP SCH (06:28)
[2018-08-09 06:34] LABS: BAND NEUTROPHILS % (MANUAL) 2 %; DIFFERENTIAL COMMENT MANUAL DIFFERENTIAL; LYMPHOCYTES # (MANUAL) 0.4 10^3/uL (1.5-3.5); LYMPHOCYTES % (MANUAL) 5 %; MONOCYTES # (MANUAL) 0.6 10^3/uL (0.0-1.0); NEUTROPHILS # (MANUAL) 7.6 10^3/uL (1.5-6.6); NEUTROPHILS % (MANUAL) 86 %; PLATELET ESTIMATE, MANUAL NORMAL (130-450,000) (NORMAL); PLATELET MORPHOLOGY NORMAL APPEARANCE (NORMAL); RBC MORPHOLOGY (MULTIPLE) NORMAL APPEARANCE (NORMAL)
[2018-08-09] MEDS: MYCOPHENOLATE MOFETIL 250 MG CAPSULE PO SCH ×2 (08:22→20:23)
--- NOTE | 2018-08-09 08:30 | PROVIDER PROGRESS NOTE ---
Subjective - Prog Note Date Prog Note Date: 08/09/18 Prog Note Time: 08:28 - Subjective Pt reports feeling: Improved Subjective: Yenni is in good spirits this morning and says she is feeling much better. Much less abdominal pain.Has not yet been out of bed but it is early and we finished her operation quite late last night.She is quite willing to get out of bed and walk in the halls today. Objective - Vital Signs/Intake & Output Reviewed Vital Signs: Yes Vital Signs: Vital Signs x48h Temp Pulse Pulse Resp BP Pulse Ox 08/09/18 06:37 100 08/09/18 03:56 37.3 C 118 H 20 112/56 L 97 08/09/18 03:07 114 H 108/51 L 08/09/18 03:01 36.7 C 116 H 18 111/49 L 93 Intake & Output: Intake & Output 08/06/18 08/07/18 08/08/18 08/09/18 23:59 23:59 23:59 23:59 Intake Total 2300 1736.667 Balance 2300 1736.667 - Objective General Appearance: positive: No acute distress Eyes Bilateral: positive: Normal inspection, PERRL, EOMI ENT: positive: ENT inspection nml Neck: positive: Nml inspection Respiratory: positive: No respiratory distress, Breath sounds nml Cardiovascular: positive: Regular rate & rhythm Abdomen: positive: Nml bowel sounds, Tenderness (Appropriately tender postoperatively) Back: negative: CVA tenderness (R), CVA tenderness (L) Skin: positive: Color nml, No rash Extremities: positive: Non-tender Neurologic/Psychiatric: positive: Oriented x3, CN's nml (2-12) - Lab Results Fish Bones: 08/09/18 04:30 08/09/18 04:30 Other Labs: Lab Results x24hrs 08/09/18 08/09/18 08/08/18 Range/Units 04:30 04:30 11:52 WBC 8.6 (4.8-10.8) x10^3/uL RBC 4.16 L (4.20-5.40) 10^6/uL Hgb 12.8 (12.0-16.0) g/dL Hct 40.0 (37.0-47.0) % MCV 96.2 (81.0-99.0) fL MCH 30.8 (27.0-31.0) pg MCHC 32.0 (32.0-36.0) g/dL RDW 13.2 (12.0-15.0) % Plt Count 191 (130-450) 10^3/uL MPV 9.8 (7.9-10.8) fL Neut # (Auto) Not Reportable (1.5-6.6) 10^3/uL Lymph # (Auto) Not Reportable (1.5-3.5) 10^3/uL [place] # (Auto) Not Reportable (0.0-1.0) 10^3/uL Eos # (Auto) Not Reportable (0.0-0.7) 10^3/uL Baso # (Auto) Not Reportable (0.0-0.1) 10^3/uL Absolute Nucleated RBC Not Reportable x10^3/uL Total Counted 100 Band Neuts % (Manual) 2 (0 - 10) % Abnorm Lymph % (Manual) 0 % Nucleated RBC % Not Reportable /100WBC Neutrophils # (Manual) 7.6 H (1.5-6.6) 10^3/uL Lymphocytes # (Manual) 0.4 L (1.5-3.5) 10^3/uL Monocytes # (Manual) 0.6 (0.0-1.0) 10^3/uL Eosinophils # (Manual) 0.0 (0-0.7) 10^3/uL Basophils # (Manual) 0.0 (0-0.1) 10^3/uL Differential Comment MANUAL DIFFERENTIAL WBC Morphology NORMAL APPEARANCE (NORMAL) Platelet Estimate NORMAL (130-450,000) (NORMAL) Platelet Morphology NORMAL APPEARANCE (NORMAL) RBC Morph Micro Appear NORMAL APPEARANCE (NORMAL) Sodium 138 (135-145) mmol/L Potassium 4.0 (3.5-5.0) mmol/L Chloride 101 (101-111) mmol/L Carbon Dioxide 23 (21-32) mmol/L Anion Gap 14.0 H (6-13) BUN 11 (6-20) mg/dL Creatinine 1.1 H (0.4-1.0) mg/dL Estimated GFR (MDRD) 52 L (>89) Glucose 168 H (70-100) mg/dL Calcium 8.2 L (8.5-10.3) mg/dL Total Bilirubin 0.8 (0.2-1.0) mg/dL AST 84 H (10-42) IU/L ALT 80 H (10-60) IU/L Alkaline Phosphatase 41 L (42-121) IU/L Troponin I (<0.49) ng/mL Total Protein 5.7 L (6.7-8.2) g/dL Albumin 3.1 L (3.2-5.5) g/dL Globulin 2.6 (2.1-4.2) g/dL Albumin/Globulin Ratio 1.2 (1.0-2.2) Lipase (22-51) U/L Urine Color YELLOW Urine Clarity CLEAR (CLEAR) Urine pH 8.5 H (5.0-7.5) PH Ur Specific [place] 1.010 (1.002-1.030) Urine Protein NEGATIVE (NEGATIVE) mg/dL Urine Glucose (UA) NEGATIVE (NEGATIVE) mg/dL Urine Ketones NEGATIVE (NEGATIVE) mg/dL Urine Occult Blood NEGATIVE (NEGATIVE) Urine Nitrite NEGATIVE (NEGATIVE) Urine Bilirubin NEGATIVE (NEGATIVE) Urine Urobilinogen 0.2 (NORMAL) (NORMAL) E.U./dL Ur Leukocyte Esterase NEGATIVE (NEGATIVE) Ur Microscopic Review NOT INDICATED Urine Culture Comments NOT INDICATED 08/08/18 08/08/18 08/08/18 Range/Units 09:40 09:40 09:40 WBC 9.8 (4.8-10.8) x10^3/uL RBC 4.80 (4.20-5.40) 10^6/uL Hgb 14.3 (12.0-16.0) g/dL Hct 44.1 (37.0-47.0) % MCV 91.9 (81.0-99.0) fL MCH 29.8 (27.0-31.0) pg MCHC 32.4 (32.0-36.0) g/dL RDW 13.1 (12.0-15.0) % Plt Count 255 (130-450) 10^3/uL MPV 9.9 (7.9-10.8) fL Neut # (Auto) 6.8 H (1.5-6.6) 10^3/uL Lymph # (Auto) 1.9 (1.5-3.5) 10^3/uL [place] # (Auto) 1.0 (0.0-1.0) 10^3/uL Eos # (Auto) 0.0 (0.0-0.7) 10^3/uL Baso # (Auto) 0.0 (0.0-0.1) 10^3/uL Absolute Nucleated RBC 0.00 x10^3/uL Total Counted Band Neuts % (Manual) (0 - 10) % Abnorm Lymph % (Manual) % Nucleated RBC % 0.0 /100WBC Neutrophils # (Manual) (1.5-6.6) 10^3/uL Lymphocytes # (Manual) (1.5-3.5) 10^3/uL Monocytes # (Manual) (0.0-1.0) 10^3/uL Eosinophils # (Manual) (0-0.7) 10^3/uL Basophils # (Manual) (0-0.1) 10^3/uL Differential Comment WBC Morphology (NORMAL) Platelet Estimate (NORMAL) Platelet Morphology (NORMAL) RBC Morph Micro Appear (NORMAL) Sodium 138 (135-145) mmol/L Potassium 3.4 L (3.5-5.0) mmol/L Chloride 100 L (101-111) mmol/L Carbon Dioxide 24 (21-32) mmol/L Anion Gap 14.0 H (6-13) BUN 8 (6-20) mg/dL Creatinine 1.0 (0.4-1.0) mg/dL Estimated GFR (MDRD) 58 L (>89) Glucose 116 H (70-100) mg/dL Calcium 10.0 (8.5-10.3) mg/dL Total Bilirubin 0.7 (0.2-1.0) mg/dL AST 33 (10-42) IU/L ALT 34 (10-60) IU/L Alkaline Phosphatase 53 (42-121) IU/L Troponin I < 0.04 (<0.49) ng/mL Total Protein 6.8 (6.7-8.2) g/dL Albumin 4.1 (3.2-5.5) g/dL Globulin 2.7 (2.1-4.2) g/dL Albumin/Globulin Ratio 1.5 (1.0-2.2) Lipase 30 (22-51) U/L Urine Color Urine Clarity (CLEAR) Urine pH (5.0-7.5) PH Ur Specific [place] (1.002-1.030) Urine Protein (NEGATIVE) mg/dL Urine Glucose (UA) (NEGATIVE) mg/dL Urine Ketones (NEGATIVE) mg/dL Urine Occult Blood (NEGATIVE) Urine Nitrite (NEGATIVE) Urine Bilirubin (NEGATIVE) Urine Urobilinogen (NORMAL) E.U./dL Ur Leukocyte Esterase (NEGATIVE) Ur Microscopic Review Urine Culture Comments - Diagnostic Imaging Diagnostic Imaging Comments: Nothing new to review Assessment/Plan - Problem List (1) Cholecystitis Impression: Improved status post cholecystectomy and repair of small bowel enterotomy and lysis of adhesions. We will Get an abdominal binder for Yenni today. She can walk in the halls. If she tolerates a regular diet and we are able to control her pain with oral medications, we will plan for discharge in the morning.
[2018-08-09] MEDS: DEXTROSE 5%-0.9% NACL 1,000 ML IV SCH (08:42)
[2018-08-09] MEDS: DULoxetine 30 MG CAPSULE PO SCH (08:42)
[2018-08-09] MEDS: POLYETHYLENE GLYCOL 3350 17 GM PACKET PO SCH (08:42)
[2018-08-09] MEDS ORDERED: predniSONE 5 MG TABLET PO SCH (09:00)
[2018-08-09] MEDS ORDERED: TORSEMIDE 20 MG TABLET PO SCH (09:00)
[2018-08-09] MEDS ORDERED: LACTATED RINGERS 1,000 ML IV ONE ×2 (13:23→13:31)
[2018-08-09 13:46] LABS: HGB - HEMOGLOBIN 11.7 g/dL (12.0-16.0); MEAN CORPUSCULAR HEMOGLOBIN 30.5 pg (27.0-31.0); MEAN CORPUSCULAR HGB CONC 31.7 g/dL (32.0-36.0); MEAN CORPUSCULAR VOLUME 96.1 fL (81.0-99.0); MEAN PLATELET VOLUME 9.6 fL (7.9-10.8); RED BLOOD COUNT 3.84 10^6/uL (4.20-5.40); RED CELL DISTRIBUTION WIDTH 13.3 % (12.0-15.0); WHITE BLOOD COUNT 11.6 x10^3/uL (4.8-10.8)
[2018-08-09 13:54] LABS: CALCIUM 7.7 mg/dL (8.5-10.3); CREATININE 1.3 mg/dL (0.4-1.0)
--- NOTE | 2018-08-09 14:12 | XRAY Report ---
Reason: SOB Procedure Date: 08/09/2018 Accession Number: [id number] / [id number] Procedure: XR - Chest 1 View X-Ray CPT Code: 25303 FULL RESULT: EXAM: CHEST RADIOGRAPHY EXAM DATE: 08/09/2018 02:04 PM. CLINICAL HISTORY: SOB. COMPARISON: None. TECHNIQUE: 1 view. FINDINGS: Lungs/Pleura: Mild interstitial prominence. Small left pleural effusion with underlying atelectasis versus scarring. No definite right effusion. No consolidation or pneumothorax. Mediastinum: Mild to moderate cardiomegaly. Upper lobe vessels not clearly distended, but azygous fullness. Possible AP window fullness. Other: Degenerative changes. IMPRESSION: 1. Small left pleural effusion with underlying atelectasis versus scarring. 2. Cardiomegaly. Azygous fullness can be an early sign of failure. [employer]
[2018-08-09] MEDS: SODIUM CHLORIDE 0.9% 1,000 ML IV SCH (14:29)
[2018-08-09] MEDS ORDERED: SODIUM CHLORIDE 0.9% 1,000 ML IV ONE (14:32)
--- NOTE | 2018-08-09 16:52 | PROVIDER PROGRESS NOTE ---
Subjective - Prog Note Date Prog Note Date: 08/09/18 Prog Note Time: 16:48 - Subjective Subjective: Yenni began complaining of inablility to void completely earlier in the afternoon. She was returned to bed from the chair where she was noted to be hypotensive. A reagan catheter was placed with immediate return of approximately 650 mls of clear yellow urine. She continued to feel weak and sleepy. She received a 1 liter bolus of LR with improvement in mental status and blood pressure. The patient denies any difficulty breathing. She has tolerated po and has passed flatus today. She reports that she frequently has SBP in the 85 to 100 range and DBP 50-60. She says she and her doctor dont worry about it as long as she is assymptomatic. Objective - Vital Signs/Intake & Output Reviewed Vital Signs: Yes Vital Signs: Vital Signs x48h Temp Pulse Pulse Pulse Resp BP Pulse Ox 08/09/18 15:51 37.8 C H 104 H 16 92/51 L 98 08/09/18 14:25 37.3 C 99 16 84/42 L 95 08/09/18 12:49 99 69/42 L 97 08/09/18 11:15 113 H 18 Intake & Output: Intake & Output 08/06/18 08/07/18 08/08/18 08/09/18 23:59 23:59 23:59 23:59 Intake Total 2300 4518.000 Output Total 1150 Balance 2300 3368.000 - Objective General Appearance: positive: No acute distress, Alert Eyes Bilateral: positive: Normal inspection, PERRL, EOMI ENT: positive: ENT inspection nml Respiratory: positive: Chest non-tender, No respiratory distress, Breath sounds nml Cardiovascular: positive: Regular rate & rhythm, No murmur Abdomen: positive: Tenderness (Appropriately tender to palpation but wound is clean, dry and intact.) Extremities: positive: Non-tender - Lab Results Fish Bones: 08/09/18 13:40 08/09/18 13:40 Other Labs: Lab Results x24hrs 08/09/18 08/09/18 08/09/18 Range/Units 13:40 13:40 04:30 WBC 11.6 H (4.8-10.8) x10^3/uL RBC 3.84 L (4.20-5.40) 10^6/uL Hgb 11.7 L (12.0-16.0) g/dL Hct 36.9 L (37.0-47.0) % MCV 96.1 (81.0-99.0) fL MCH 30.5 (27.0-31.0) pg MCHC 31.7 L (32.0-36.0) g/dL RDW 13.3 (12.0-15.0) % Plt Count 181 (130-450) 10^3/uL MPV 9.6 (7.9-10.8) fL Neut # (Auto) Lymph # (Auto) [place] # (Auto) Eos # (Auto) Baso # (Auto) Absolute Nucleated RBC Total Counted Band Neuts % (Manual) (0 - 10) % Abnorm Lymph % (Manual) % Nucleated RBC % Neutrophils # (Manual) (1.5-6.6) 10^3/uL Lymphocytes # (Manual) (1.5-3.5) 10^3/uL Monocytes # (Manual) (0.0-1.0) 10^3/uL Eosinophils # (Manual) (0-0.7) 10^3/uL Basophils # (Manual) (0-0.1) 10^3/uL Differential Comment WBC Morphology (NORMAL) Platelet Estimate (NORMAL) Platelet Morphology (NORMAL) RBC Morph Micro Appear (NORMAL) Sodium 132 L 138 (135-145) mmol/L Potassium 4.3 4.0 (3.5-5.0) mmol/L Chloride 97 L 101 (101-111) mmol/L Carbon Dioxide 23 23 (21-32) mmol/L Anion Gap 12.0 14.0 H (6-13) BUN 14 11 (6-20) mg/dL Creatinine 1.3 H 1.1 H (0.4-1.0) mg/dL Estimated GFR (MDRD) 43 L 52 L (>89) Glucose 149 H 168 H (70-100) mg/dL Calcium 7.7 L 8.2 L (8.5-10.3) mg/dL Total Bilirubin 0.8 (0.2-1.0) mg/dL AST 84 H (10-42) IU/L ALT 80 H (10-60) IU/L Alkaline Phosphatase 41 L (42-121) IU/L Total Protein 5.7 L (6.7-8.2) g/dL Albumin 3.1 L (3.2-5.5) g/dL Globulin 2.6 (2.1-4.2) g/dL Albumin/Globulin Ratio 1.2 (1.0-2.2) 08/09/18 Range/Units 04:30 WBC 8.6 (4.8-10.8) x10^3/uL RBC 4.16 L (4.20-5.40) 10^6/uL Hgb 12.8 (12.0-16.0) g/dL Hct 40.0 (37.0-47.0) % MCV 96.2 (81.0-99.0) fL MCH 30.8 (27.0-31.0) pg MCHC 32.0 (32.0-36.0) g/dL RDW 13.2 (12.0-15.0) % Plt Count 191 (130-450) 10^3/uL MPV 9.8 (7.9-10.8) fL Neut # (Auto) Not Reportable Lymph # (Auto) Not Reportable [place] # (Auto) Not Reportable Eos # (Auto) Not Reportable Baso # (Auto) Not Reportable Absolute Nucleated RBC Not Reportable Total Counted 100 Band Neuts % (Manual) 2 (0 - 10) % Abnorm Lymph % (Manual) 0 % Nucleated RBC % Not Reportable Neutrophils # (Manual) 7.6 H (1.5-6.6) 10^3/uL Lymphocytes # (Manual) 0.4 L (1.5-3.5) 10^3/uL Monocytes # (Manual) 0.6 (0.0-1.0) 10^3/uL Eosinophils # (Manual) 0.0 (0-0.7) 10^3/uL Basophils # (Manual) 0.0 (0-0.1) 10^3/uL Differential Comment MANUAL DIFFERENTIAL WBC Morphology NORMAL APPEARANCE (NORMAL) Platelet Estimate NORMAL (130-450,000) (NORMAL) Platelet Morphology NORMAL APPEARANCE (NORMAL) RBC Morph Micro Appear NORMAL APPEARANCE (NORMAL) Sodium (135-145) mmol/L Potassium (3.5-5.0) mmol/L Chloride (101-111) mmol/L Carbon Dioxide (21-32) mmol/L Anion Gap (6-13) BUN (6-20) mg/dL Creatinine (0.4-1.0) mg/dL Estimated GFR (MDRD) (>89) Glucose (70-100) mg/dL Calcium (8.5-10.3) mg/dL Total Bilirubin (0.2-1.0) mg/dL AST (10-42) IU/L ALT (10-60) IU/L Alkaline Phosphatase (42-121) IU/L Total Protein (6.7-8.2) g/dL Albumin (3.2-5.5) g/dL Globulin (2.1-4.2) g/dL Albumin/Globulin Ratio (1.0-2.2) ABX Reporting Has patient been on IV antibiotics over the past 48 hours?: Yes Assessment/Plan - Problem List (1) Cholecystitis Impression: I have spoken with the Hospitalist service regarding this episode and the medications the patient is on. We have held the afternoon dose of Metoprolol for hypotension. Labs revealed some elevation in WBCs and mild hyponatremia. She remains on antibiotics so should be well covered for any organism related to the cholecytectomy.
[2018-08-09] MEDS: SIMETHICONE CHEW 80 MG TABLET PO PRN (17:18)
[2018-08-09] MEDS: HYDROCORTISONE SUCCINATE 100 MG/2 ML VIAL IVP SCH (17:54)
[2018-08-09] MEDS ORDERED: MINERAL OIL/PETROLAT OPHTH OINT EACHEYE PRN (19:26)
[2018-08-09] MEDS ORDERED: CARBOXYMETHYLCELLULOSE OPHTH DROPS EACHEYE PRN (19:26)
[2018-08-09] MEDS: MONTELUKAST 10 MG TABLET PO SCH (20:23)
[2018-08-09] MEDS ORDERED: SODIUM CHLORIDE 0.9% 500 ML IV ONE (20:35)
--- NOTE | 2018-08-09 21:37 | CONSULTATION NOTE ---
DATE OF SERVICE: 08/09/2018 Physician: Luciana Correa MD HISTORY OF PRESENT ILLNESS: This is a 52-year-old white female with history of obesity, tachycardia, asthma, depression, lupus-like syndrome with arthritis and fibromyalgia, prior , breast reduction, and laparoscopic surgery for unknown diagnoses. Patient presented after intermittent abdominal pain for approximately a month and then yesterday severe abdominal pain with nausea and vomiting; and workup in the ER showed that she had cholecystitis and she was taken to the operating room. She is on the surgical service and is postop day #1 after a laparoscopic cholecystectomy. There was an iatrogenic enterotomy, and she required repair of the bowel, and adhesions were found and were lysed. The plan was to have short stay for surgery and discharge, her diet has already been advanced to a regular diet. Today she was found to have urinary retention of about 600 mL, and at the same time was noted to be hypotensive with blood pressure of 69 systolic. With this, she was mentating and able to answer questions and reported that she gets hypotension occasionally; therefore, a consult was called of the Hospitalist team because of hypotension and her past medical history and extensive med list. Patient states that she has had tachycardia of unknown reasons for about 10 years, for which she has been on Metoprolol succinate every 6 hours, which has helped to control the heart rate. She does not remember ever having an EP study or cardiac catheterization. She remembers having a stress test and Echo approximately 2 years ago, which were both normal, she states. No cardiac evaluation since then. She states that before the Metoprolol was started, even movement from supine to sitting would make her get tachycardic and also drop her blood pressure. She does not think that she was ever told she had POTS syndrome. Patient also describes that over the past 5 years, she has started to have edema for which she has required loop diuretics, and a renal source has not yet been worked up, she stated. She has lupus-like symptoms and has needed prednisone for over 2 years, usually a stable dose of 5 mg daily, but she knows to give herself a 3-day burst from 20 mg down to 15 then 10 with a taper if she gets "joint swelling in her hands and in pain her shoulders." With her surgery yesterday, she did get iv Solu-Medrol. The orders are now to resume the Prednisone 5 mg daily. Patient states that her diet has been advanced to a regular diet today, but she is only taking the ice cream, soft food and liquids so far. She does not have abdominal pain, but states she has no appetite and early satiety. REVIEW OF SYSTEMS: A comprehensive review of systems was performed, and the pertinent positives were listed. The rest were negative. ALLERGIES 1. ADHESIVE TAPE. 2. ALBUTEROL. 3. ARAVA LEVOCETIRIZINE. 4. LEVAQUIN. 5. MINOCYCLINE. 6. EPINEPHRINE. 7. ATORVASTATIN. MEDICATIONS AT HOME 1. Gabapentin 600 mg t.i.d. 2. Tylenol with codeine q.i.d. p.r.n. 3. Methocarbamol 500 mg q.i.d. p.r.n. 4. Naprosyn 500 mg b.i.d. p.r.n. 5. Torsemide 20 mg daily. 6. Tizanidine 4 mg t.i.d. p.r.n. 7. Crestor 10 mg every night. 8. Potassium chloride 80 mEq daily. 9. Perphenazine 10 mg every 8 hours p.r.n. 10. Prednisone 5 mg daily. 11. Multivitamin daily. 12. Nortriptyline 75 mg every night. 13. Mycophenolate 500 mg b.i.d. 14. Singulair 10 mg every night. 15. Metoprolol succinate 25 mg q.i.d. 16. Xopenex inhaler every 4 hours p.r.n. 17. Flonase 1 spray b.i.d. p.r.n. 18. Flovent 1 puff b.i.d. scheduled. 19. Cymbalta 90 mg daily. 20. Diazepam 5 mg every 8 hours p.r.n. anxiety. 21. Vitamin B12 daily. 22. Vitamin D3 daily. 23. Calcium carbonate daily. 24. Tessalon Perles p.r.n. 25. Alprazolam 0.5 t.i.d. p.r.n. 26. 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 FAMILY HISTORY: No inherited diseases. SOCIAL HISTORY: She is a nonsmoker, drinks no alcohol, no illicit drug use. PHYSICAL EXAMINATION GENERAL: Obese white female. She is in no distress, supine in bed with head of bed elevated. VITAL SIGNS: Blood pressure: Her lowest was 69/42. At that time, the heart rate was 113 in sinus tachycardia. Her blood pressure is now running 92/50 with a heart rate of 104. She has a fever of 37.8 degrees C, O2 saturation 98% on 2 liters nasal cannula. It was 93% on room air. HEENT: Unremarkable except on nasal cannula oxygen. NECK: Without JVD or carotid bruits. CHEST: Clear. HEART: Normal heart sounds. No murmurs. No heave or gallop. ABDOMEN: Obese, normal bowel sounds. Nontender to light palpation. LEGS: 1+ edema. NEUROLOGIC: Grossly intact. LABORATORY DATA: Most recent labs show sodium 138 yesterday has dropped today to 132. Today Potassium is 4.3, BUN 14, creatinine 1.3, which is up from yesterday of 1.1 and normal at admission. Glucose 149. Lactic acid 1.8. Troponin not detectable. Liver test elevated with AST of 84, which was normal the day before. ALT 80, which was normal the day before. Alkaline phosphatase normal. Lipase was 30 on admission. No amylase was done. White blood count 9.8 on admission, has increased at 11.6, hemoglobin 11.7, platelet count normal at 181. IMPRESSION/DIAGNOSES 1. Hypotension. Rule out septic shock, hypovolemic shock, cardiogenic shock or medication side effects. 2. Acute kidney injury post-op. 3. Elevated LFTs, post-op. 4. Abdominal pain post-op. 5. Hyponatremia post-op. 6. Acute urinary retention post-op. 7. Cholecystitis, status post laparoscopic cholecystectomy. 8. Iatrogenic enterotomy, repaired, along with lysis of adhesions. 9. Lupus-like syndrome and history on daily steroids. 10. Tachycardia, possibly POTS syndrome. 11. History of asthma. 12. History of depression. 13. History of leg edema, etiology unclear. PLAN 1. Check troponins x3, obtain an EKG for ischemic changes, obtain an Echo to evaluate for cardiomyopathy. 2. Recheck blood cultures and obtain cultures of the surgical wound, if there is drainage. Continue iv antibiotics to cover gram negatives and anaerobes. 3. Recheck a CT of the abdomen for abscess or hematoma. 4. Give her stress dose steroids with Hydrocortisone 50 mg t.i.d. with a tapering schedule over 3 days. 5. Give IV bolus of saline and stop her Torsemide. Continue TEDS stockings and order leg elevation when OOB. 6. Follow her electrolytes daily. 7. CBC daily. 8. Change her diet, decreased to pureed for several more days of bowel rest postop. 9. Continue telemetry. 10. Continue her qid doses of long-acting metoprolol for rate control, if BP will tolerate it (will order hold parameters if BP <80). DEEP VENOUS THROMBOSIS PROPHYLAXIS: SANDY stockings. CODE STATUS: FULL CODE. ATTESTATION: Patient is expected to discharge or transfer to another facility within 96 hours: Yes. cc: Tele Tech: Dr Satya Vanegas cc: MD Luz Dinero MD TD: 08/09/2018 19:46 MTDD
[2018-08-09] MEDS: NORTRIPTYLINE 25 MG CAPSULE PO SCH (21:40)
[2018-08-09] MEDS: oxyCODONE 5 MG TABLET PO PRN (21:41)
[2018-08-09] MEDS: ACETAMINOPHEN 325 MG TABLET PO PRN (21:41)
[2018-08-09] MEDS: VENLAFAXINE 37.5 MG TABLET PO SCH (21:42)
[2018-08-09] MEDS: ROSUVASTATIN CALCIUM 10 MG PO SCH (21:42)
[2018-08-10] MEDS: SIMETHICONE CHEW 80 MG TABLET PO PRN ×6 (00:05→23:47)
[2018-08-10] MEDS: KETOROLAC 15 MG/ML VIAL IVP PRN (00:05)
[2018-08-10] MEDS: HYDROCORTISONE SUCCINATE 100 MG/2 ML VIAL IVP SCH ×3 (00:05→16:29)
[2018-08-10] MEDS: SODIUM CHLORIDE FLUSH 0.9% 10 ML SYRINGE IVP SCH ×4 (00:06→23:47)
[2018-08-10] MEDS: SODIUM CHLORIDE FLUSH 0.9% 10 ML SYRINGE IVP PRN ×7 (00:06→22:10)
[2018-08-10] MEDS ORDERED: SODIUM CHLORIDE 0.9% 1,000 ML IV ONE (00:25)
[2018-08-10] MEDS ORDERED: oxyCODONE 5 MG TABLET PO STA (01:20)
[2018-08-10] MEDS: METOPROLOL SUCCINATE 25 MG TABLET PO SCH ×5 (01:46→20:08)
[2018-08-10] MEDS: CEFEPIME 2 GM in SODIUM CHLORIDE 0.9% MINIBAG 100 ML IV SCH ×3 (02:23→21:15)
[2018-08-10] MEDS: metroNIDAZOLE 500 MG/100 ML 500 MG/100 ML BAG IV SCH ×3 (02:59→18:26)
[2018-08-10] MEDS: ACETAMINOPHEN 325 MG TABLET PO PRN ×2 (03:33→09:57)
[2018-08-10] MEDS: ONDANSETRON 4 MG/2 ML VIAL IVP PRN ×4 (05:37→19:58)
[2018-08-10] MEDS: PANTOPRAZOLE 40 MG VIAL IVP SCH (05:41)
[2018-08-10] MEDS: GABAPENTIN 300 MG CAPSULE PO SCH ×4 (05:45→21:24)
[2018-08-10] MEDS: oxyCODONE 5 MG TABLET PO PRN ×3 (05:45→13:53)
[2018-08-10 08:52] LABS: CALCIUM 8.4 mg/dL (8.5-10.3); CREATININE 1.1 mg/dL (0.4-1.0)
[2018-08-10] MEDS: POLYETHYLENE GLYCOL 3350 17 GM PACKET PO SCH (09:06)
[2018-08-10] MEDS: DULoxetine 30 MG CAPSULE PO SCH (09:06)
[2018-08-10] MEDS: MYCOPHENOLATE MOFETIL 250 MG CAPSULE PO SCH (09:06)
[2018-08-10] MEDS: VENLAFAXINE 37.5 MG TABLET PO SCH ×3 (09:06→21:24)
[2018-08-10 09:15] LABS: BASOPHILS % (AUTO) 0.3 %; EOSINOPHILS % (AUTO) 0.3 %; HGB - HEMOGLOBIN 11.9 g/dL (12.0-16.0); MEAN CORPUSCULAR HEMOGLOBIN 30.5 pg (27.0-31.0); MEAN CORPUSCULAR HGB CONC 32.1 g/dL (32.0-36.0); MEAN CORPUSCULAR VOLUME 95.1 fL (81.0-99.0); MEAN PLATELET VOLUME 10.3 fL (7.9-10.8); NEUTROPHILS % (AUTO) 86.5 %; PLT - PLATELET COUNT 186 10^3/uL (130-450); RED CELL DISTRIBUTION WIDTH 13.3 % (12.0-15.0); WHITE BLOOD COUNT 10.1 x10^3/uL (4.8-10.8)
[2018-08-10 09:41] LABS: ABNORMAL LYMPHS % (MANUAL) 0 %
[2018-08-10 09:47] LABS: BAND NEUTROPHILS % (MANUAL) 26 %; LYMPHOCYTES # (MANUAL) 1.3 10^3/uL (1.5-3.5); LYMPHOCYTES % (MANUAL) 8 %; METAMYELOCYTES % (MANUAL) 3 %; MONOCYTES # (MANUAL) 0.1 10^3/uL (0.0-1.0); MYELOCYTES % (MANUAL) 1 %; NEUTROPHILS # (MANUAL) 8.3 10^3/uL (1.5-6.6); NEUTROPHILS % (MANUAL) 56 %; RBC MORPHOLOGY (MULTIPLE) 2+ ANISOCYTOSIS (NORMAL)
[2018-08-10 09:48] LABS: DIFFERENTIAL COMMENT MANUAL DIFFERENTIAL
[2018-08-10] MEDS: SODIUM CHLORIDE 0.9% 1,000 ML IV SCH ×2 (10:17→11:15)
[2018-08-10] MEDS: HYDROmorphone 1 MG/ML CARPUJECT IVP PRN ×6 (11:50→23:46)
[2018-08-10] MEDS ORDERED: PSYLLIUM PACKET PO PRN (13:56)
[2018-08-10] MEDS ORDERED: TORSEMIDE 20 MG TABLET PO ONE (14:30)
[2018-08-10] MEDS: DOCUSATE SODIUM 250 MG CAPSULE PO SCH ×2 (14:46→21:12)
[2018-08-10] MEDS: HYDROcod/ACETAM 10 MG/325 MG TABLET PO PRN ×2 (14:46→22:10)
--- NOTE | 2018-08-10 15:38 | PROVIDER PROGRESS NOTE ---
Subjective - Prog Note Date Prog Note Date: 08/10/18 Prog Note Time: 15:35 - Subjective Subjective: Patient reports she had a very "rough and uncomfortable night". She reports the nurses were afraid to give her any pain medication due to her low blood pre ssure. She is also upset that she has gained 11 pounds likely due to numerous fluid boluses over the evening. Her pain is better now. She has had 2 bowel movements today. Also passed some flatus Current Medications - Current Medications Current Medications: Medications Summary Acetaminophen (Tylenol) 650 mg PO Q6HR PRN PRN Reason: Pain or Fever > 38C (100.4F) Last Admin: 08/10/18 09:57 Dose: 650 mg Acetaminophen Assessment Document 08/10/18 09:57 NV (Rec: 08/10/18 09:57 NV [id number]) Pain or Fever Assessment Pain Scale Used 0-10 Pain Intensity (0-10) 8 Re-Assess: Acetaminophen Effectiveness Document 08/10/18 10:57 NV (Rec: 08/10/18 11:37 NV [id number]) Effect on Pain or Fever Pain Scale Used 0-10 Pain Intensity (0-10) 8 Effective/Ineffective Ineffective Hydrocodone Bitart/Acetaminophen ([place] 10 Mg/325 Mg) 1 tab PO QID PRN PRN Reason: PAIN Last Admin: 08/10/18 14:46 Dose: 1 tab Pain Assessment Document 08/10/18 14:46 NV (Rec: 08/10/18 14:46 NV [id number]) Pain Level Pain Scale Used 0-10 Intensity (0-10) 4 Budesonide (Pulmicort) 0.5 mg INH RTBID [facility] Last Admin: 08/09/18 06:35 Dose: Not Given Non-Admin Reason: Given by Another Provider Carboxymethylcellulose (Refresh 1% Ophth Drops) 1 drops EACHEYE PRN PRN PRN Reason: Dry Eye Last Admin: 08/09/18 21:45 Dose: 1 drops Comments: unit dose med does not scan Docusate Sodium (Colace 250mg Capsule) 250 mg PO BID [facility] Last Admin: 08/10/18 14:46 Dose: 250 mg Fluticasone Propionate (Flonase) 1 sprays SHAYY BID PRN PRN Reason: ALLERGIC RHINITIS Last Admin: 08/09/18 21:43 Dose: 1 sprays Gabapentin (Neurontin) 300 - 600 mg PO TID [facility] Last Admin: 08/10/18 14:46 Dose: Not Given Non-Admin Reason: gave at 1400 with other order Hydrocortisone Sodium Succinate (Solu-Cortef) 50 mg IVP Q8H [facility] Last Admin: 08/10/18 09:15 Dose: 50 mg Hydromorphone HCl (Dilaudid Inj Carp) 1 mg IVP Q1HR PRN PRN Reason: PAIN Last Admin: 08/10/18 14:03 Dose: 1 mg Pain Assessment Document 08/10/18 14:03 NV (Rec: 08/10/18 14:03 NV [id number]) Pain Level Pain Scale Used 0-10 Intensity (0-10) 4 Re-Assess: Pain Reassessment Document 08/10/18 14:33 AK (Rec: 08/10/18 14:47 NV [id number]) Reassessment Effective/Ineffective Effective Metronidazole (Flagyl 500 Mg/100 Ml) 500 mg in 100 mls @ 100 mls/hr IV Q8H [facility] Last Infusion: 08/10/18 11:01 Dose: 0 mls/hr Medication Titration Document 08/10/18 11:01 AK (Rec: 08/10/18 11:12 NV [id number]) Titration Intake Titration Intake 100 Cumulative Intake 100 Container Volume 0 Elapsed Time 5h 17m Titration Dosing IV Rate 0 Increase/Decrease Infused Cumulative Dose 2500 Total Intake (Rx) 500 Volume Adjustment/Waste 0 Sodium Chloride (Normal Saline 0.9%) 1,000 mls @ 100 mls/hr IV .Q10H [facility] Last Admin: 08/10/18 11:15 Dose: Not Given Non-Admin Reason: pt MD hold fluids Cefepime HCl 2 gm/ Sodium (Chloride) 100 mls @ 200 mls/hr IV BID [facility] Last Infusion: 08/10/18 09:20 Dose: 0 mls/hr Medication Titration Document 08/10/18 09:20 NV (Rec: 08/10/18 09:26 NV [id number]) Titration Intake Titration Intake 100 Cumulative Intake 100 Container Volume 0 Elapsed Time 1h 0m Titration Dosing IV Rate 0 Increase/Decrease Infused Cumulative Dose 0 Total Intake (Rx) 200 Volume Adjustment/Waste 0 Ketorolac Tromethamine (Toradol Inj (15mg)) 15 mg IVP Q6H PRN PRN Reason: PAIN Stop: 08/13/18 18:30 Last Admin: 08/10/18 00:05 Dose: 15 mg Pain Assessment Document 08/10/18 00:05 AG (Rec: 08/10/18 00:05 AG [id number]) Pain Level Pain Scale Used 0-10 Intensity (0-10) 8 Re-Assess: Pain Reassessment Document 08/10/18 00:35 AG (Rec: 08/10/18 03:07 AG [id number]) Reassessment Effective/Ineffective Effective Methocarbamol (Robaxin) 500 mg PO QID PRN PRN Reason: Spasms Last Admin: 08/09/18 04:30 Dose: 500 mg Pain Assessment Document 08/09/18 04:30 AFS (Rec: 08/09/18 04:30 AFS [id number]) Pain Level Pain Scale Used 0-10 Intensity (0-10) 5 Re-Assess: Pain Reassessment Document 08/09/18 05:30 AFS (Rec: 08/09/18 06:35 AFS [id number]) Reassessment Unable to Assess Asleep Metoprolol Succinate (Toprol Xl) 25 mg PO Q6H [facility] Last Admin: 08/10/18 13:53 Dose: 25 mg Montelukast Sodium (Singulair) 10 mg PO QPM [facility] Last Admin: 08/09/18 20:23 Dose: Not Given Non-Admin Reason: Patient Refused Multi-Ingred Cream/Lotion/Oil/Oint (Lubrifresh Pm Ophth Oint) 1 applic EACHEYE QPM PRN PRN Reason: Dry Eye Last Admin: 08/09/18 21:44 Dose: 1 drops Ondansetron HCl (Zofran Inj) 4 mg IVP Q6H PRN PRN Reason: Nausea / Vomiting Last Admin: 08/10/18 13:53 Dose: 4 mg Re-Assess: General PRN Medication Reasses Document 08/10/18 14:23 AK (Rec: 08/10/18 14:47 AK [id number]) Reassessment Effective/Ineffective Effective Oxycodone HCl (Roxicodone) 5 mg PO Q4HR PRN PRN Reason: PAIN Last Admin: 08/10/18 09:54 Dose: 5 mg Pantoprazole Sodium (Protonix) 40 mg IVP QDAC [facility] Last Admin: 08/10/18 05:41 Dose: 40 mg Patient Own Medication (Patient Own Medication) 1 each PO QPM [facility] Last Admin: 08/09/18 21:42 Dose: Not Given Non-Admin Reason: not available, to bring in AM Polyethylene Glycol (Miralax) 17 gm PO DAILY [facility] Last Admin: 08/10/18 09:06 Dose: Not Given Non-Admin Reason: Patient Refused Pregabalin (Lyrica) 75 mg PO TID [facility] Last Admin: 08/08/18 21:45 Dose: Not Given Non-Admin Reason: pt no longer takes this med Simethicone (Mylicon) 80 mg PO 0900,1300,1800,2100 PRN PRN Reason: Abdominal Pain Last Admin: 08/10/18 13:53 Dose: 80 mg Sodium Chloride (Normal Saline Flush 0.9%) 10 ml IVP 0100,0900,1700 [facility] Last Admin: 08/10/18 05:41 Dose: 10 ml Sodium Chloride (Normal Saline Flush 0.9%) 10 ml IVP PRN PRN PRN Reason: NEEDED PER PROVIDER ORDERS Last Admin: 08/10/18 05:38 Dose: 10 ml Tizanidine HCl (Zanaflex) 4 mg PO TID PRN PRN Reason: Spasms Last Admin: 08/09/18 08:42 Dose: 4 mg Venlafaxine HCl (Effexor) 150 mg PO BID [facility] Last Admin: 08/10/18 14:45 Dose: 150 mg Discontinued Medications Bupivacaine HCl/Epinephrine Bitart (Sensorcaine/Epinephrine 0.5%) 10 ml SUBQ .STK-MED ONE Stop: 08/08/18 18:05 Last Admin: 08/08/18 18:04 Dose: 10 ml Duloxetine HCl (Cymbalta) 90 mg PO DAILY [facility] Last Admin: 08/10/18 09:06 Dose: Not Given Non-Admin Reason: Patient Refused Fentanyl (Fentanyl) Confirm Administered Dose 100 mcg .ROUTE .STK-MED ONE Stop: 08/08/18 19:05 Last Admin: 08/08/18 18:57 Dose: 50 mcg Fentanyl (Fentanyl) Confirm Administered Dose 100 mcg .ROUTE .STK-MED ONE Stop: 08/08/18 19:22 Last Admin: 08/08/18 19:15 Dose: 50 mcg Gabapentin (Neurontin) 600 mg PO TID [facility] Stop: 08/13/18 21:59 Last Admin: 08/10/18 13:53 Dose: 600 mg Hydromorphone HCl (Dilaudid Inj Carp) 1 mg IVP ONCE STA Stop: 08/08/18 10:00 Last Admin: 08/08/18 10:09 Dose: 1 mg Hydromorphone HCl (Dilaudid Inj Carp) 1 mg IVP ONCE STA Stop: 08/08/18 12:52 Last Admin: 08/08/18 13:16 Dose: 1 mg Hydromorphone HCl (Dilaudid Inj Carp) 1 mg IVP ONCE STA Stop: 08/08/18 14:55 Last Admin: 08/08/18 15:00 Dose: 1 mg Hydromorphone HCl (Dilaudid Inj Syringe) 1 mg IVP Q1HR PRN PRN Reason: PAIN Last Admin: 08/09/18 18:10 Dose: 1 mg Pain Assessment Document 08/09/18 18:10 HDP (Rec: 08/09/18 18:11 HDP [id number]) Pain Level Pain Scale Used 0-10 Intensity (0-10) 10 Re-Assess: Pain Reassessment Document 08/09/18 18:40 HDP (Rec: 08/09/18 19:54 HD [id number]) Reassessment Non-Numerical Pain Rating Effective per pt, reported being able to cough & deep breathe, use IS Effective/Ineffective Effective Sodium Chloride (Normal Saline 0.45%) 1,000 mls @ 0 mls/hr IV .Q0M [facility] Last Infusion: 08/08/18 11:10 Dose: 0 mls/hr Medication Titration Document 08/08/18 11:10 ID (Rec: 08/08/18 11:10 ID [id number]) Titration Intake Titration Intake 1,000 Cumulative Intake 1,000 Container Volume 0 Elapsed Time 47m Titration Dosing IV Rate 0 Increase/Decrease Infused Cumulative Dose Not Applicable Total Intake (Rx) 1,000 Volume Adjustment/Waste 0 Cefoxitin Sodium 1 gm/ Sodium (Chloride) 100 mls @ 200 mls/hr IV ONCE STA Stop: 08/08/18 13:15 Last Infusion: 08/08/18 14:19 Dose: 0 mls/hr Medication Titration Document 08/08/18 14:19 ID (Rec: 08/08/18 14:19 ID [id number]) Titration Intake Titration Intake 100 Cumulative Intake 100 Container Volume 0 Elapsed Time 36m Titration Dosing IV Rate 0 Increase/Decrease Infused Cumulative Dose 0 Total Intake (Rx) 100 Volume Adjustment/Waste 0 Lactated Ringer's (Lr) mls @ as directed IV .STK-MED ONE Stop: 08/08/18 16:37 Last Admin: 08/08/18 16:36 Dose: 0 mls Dextrose/Sodium Chloride (D5ns) 1,000 mls @ 100 mls/hr IV .Q10H [facility] Last Infusion: 08/09/18 13:41 Dose: 0 mls/hr Medication Titration Document 08/09/18 13:41 NIEVES (Rec: 08/09/18 13:42 NIEVES [id number]) Titration Intake Titration Intake 498 Cumulative Intake 498 Container Volume 0 Elapsed Time 15h 57m Titration Dosing IV Rate 0 Increase/Decrease Infused Cumulative Dose Not Applicable Total Intake (Rx) 1,498 Volume Adjustment/Waste 502 Piperacillin Sod/Tazobactam (Sod 3.375 gm/ Sodium Chloride) 100 mls @ 200 mls/hr IV Q6HR ONE Stop: 08/09/18 00:29 Last Infusion: 08/09/18 00:59 Dose: 0 mls/hr Medication Titration Document 08/09/18 00:59 AFS (Rec: 08/09/18 00:59 AFS [id number]) Titration Intake Titration Intake 100 Cumulative Intake 100 Container Volume 0 Elapsed Time 37m Titration Dosing IV Rate 0 Increase/Decrease Infused Cumulative Dose 0 Total Intake (Rx) 100 Volume Adjustment/Waste 0 Lactated Ringer's (Lr) 1,000 mls @ 999 mls/hr IV ONCE ONE Stop: 08/09/18 14:23 Last Infusion: 08/09/18 14:24 Dose: 0 mls/hr Medication Titration Document 08/09/18 14:24 NIEVES (Rec: 08/09/18 14:24 NIEVES [id number]) Titration Intake Titration Intake 1,000 Cumulative Intake 1,000 Container Volume 0 Elapsed Time 1h 4m Titration Dosing IV Rate 0 Increase/Decrease Infused Cumulative Dose Not Applicable Total Intake (Rx) 1,000 Volume Adjustment/Waste 0 Sodium Chloride (Normal Saline 0.9%) 500 mls @ 999 mls/hr IV ONCE ONE Stop: 08/09/18 21:05 Last Infusion: 08/09/18 22:10 Dose: 0 mls/hr Medication Titration Document 08/09/18 22:10 HDP (Rec: 08/09/18 23:43 HDP [id number]) Titration Intake Titration Intake 500 Cumulative Intake 500 Container Volume 0 Elapsed Time 35m Titration Dosing IV Rate 0 Increase/Decrease Infused Cumulative Dose Not Applicable Total Intake (Rx) 500 Volume Adjustment/Waste 0 Sodium Chloride (Normal Saline 0.9%) 1,000 mls @ 999 mls/hr IV ONCE ONE Stop: 08/10/18 01:25 Last Infusion: 08/10/18 01:55 Dose: 0 mls/hr Medication Titration Document 08/10/18 01:55 AG (Rec: 08/10/18 03:06 AG [id number]) Titration Intake Titration Intake 1,000 Cumulative Intake 1,000 Container Volume 0 Elapsed Time 1h 1m Titration Dosing IV Rate 0 Increase/Decrease Infused Cumulative Dose Not Applicable Total Intake (Rx) 1,000 Volume Adjustment/Waste 0 Lidocaine HCl (Xylocaine 1%) 10 ml SUBQ .STK-MED ONE Stop: 08/08/18 18:04 Last Admin: 08/08/18 18:03 Dose: 10 ml Metoprolol Succinate (Toprol Xl) 25 mg PO QID [facility] Last Admin: 08/08/18 20:44 Dose: 25 mg Mycophenolate Mofetil () 500 mg PO BID [facility] Last Admin: 08/10/18 09:06 Dose: Not Given Non-Admin Reason: Patient Refused Non-Formulary Medication (Rosuvastatin Calcium [Crestor]) 10 mg PO QPM [facility] Last Admin: 08/08/18 21:44 Dose: Not Given Non-Admin Reason: med not available Nortriptyline HCl (Pamelor) 75 mg PO QPM [facility] Last Admin: 08/09/18 21:40 Dose: 75 mg Ondansetron HCl (Zofran Inj) 4 mg IVP ONCE STA Stop: 08/08/18 10:00 Last Admin: 08/08/18 10:09 Dose: 4 mg Ondansetron HCl (Zofran Inj) 4 mg IVP ONCE STA Stop: 08/08/18 12:52 Last Admin: 08/08/18 13:15 Dose: 4 mg Ondansetron HCl (Zofran Inj) 4 mg IVP ONCE STA Stop: 08/08/18 14:55 Last Admin: 08/08/18 15:00 Dose: 4 mg Ondansetron HCl (Zofran Inj) Confirm Administered Dose 4 mg .ROUTE .STK-MED ONE Stop: 08/08/18 16:44 Last Admin: 08/08/18 16:36 Dose: 4 mg Oxycodone HCl (Roxicodone) 5 mg PO ONCE STA Stop: 08/10/18 01:21 Last Admin: 08/10/18 01:45 Dose: 5 mg Pain Assessment Document 08/10/18 01:45 AG (Rec: 08/10/18 01:45 AG [id number]) Pain Level Pain Scale Used 0-10 Intensity (0-10) 7 Prednisone (Deltasone) 5 mg PO DAILY [facility] Last Admin: 08/09/18 08:42 Dose: 5 mg Promethazine HCl (Phenergan Inj) Confirm Administered Dose 25 mg .ROUTE .K-MED ONE Stop: 08/08/18 18:53 Last Admin: 08/08/18 18:51 Dose: 6.25 mg Comments: ORM Administered Route: IV Torsemide (Torsemide) 20 mg PO DAILY [facility] Last Admin: 08/09/18 08:42 Dose: 20 mg Torsemide (Torsemide) 40 mg PO ONCE ONE Stop: 08/10/18 14:31 Last Admin: 08/10/18 14:45 Dose: 40 mg Venlafaxine HCl (Effexor) 75 mg PO BID [facility] Last Admin: 08/10/18 09:06 Dose: Not Given Non-Admin Reason: Patient Refused Objective - Vital Signs/Intake & Output Reviewed Vital Signs: Yes Vital Signs: Vital Signs x48h Temp Pulse Resp BP Pulse Ox 08/10/18 13:00 36.9 C 98 20 121/61 95 08/10/18 09:00 18 93 08/10/18 07:54 37.2 C 103 H 24 132/54 H 97 Intake & Output: Intake & Output 08/07/18 08/08/18 08/09/18 08/10/18 23:59 23:59 23:59 23:59 Intake Total 2300 6058.000 3090 Output Total 2700 1700 Balance 2300 3358.000 1390 - Objective General Appearance: positive: No acute distress, Alert Eyes Bilateral: positive: Normal inspection, PERRL, EOMI Respiratory: positive: Chest non-tender, No respiratory distress, Breath sounds nml Cardiovascular: positive: Regular rate & rhythm, No murmur Abdomen: positive: Nml bowel sounds, Tenderness (Appropriately tender to palpation at the operative site. The wound is clean and will be repacked today with quarter inch iodoform gauze.) - Lab Results Fish Bones: 08/10/18 08:35 08/10/18 08:35 Other Labs: Lab Results x24hrs 08/10/18 08/10/18 08/10/18 Range/Units 08:35 08:35 05:25 WBC 10.1 (4.8-10.8) x10^3/uL RBC 3.90 L (4.20-5.40) 10^6/uL Hgb 11.9 L (12.0-16.0) g/dL Hct 37.1 (37.0-47.0) % MCV 95.1 (81.0-99.0) fL MCH 30.5 (27.0-31.0) pg MCHC 32.1 (32.0-36.0) g/dL RDW 13.3 (12.0-15.0) % Plt Count 186 (130-450) 10^3/uL MPV 10.3 (7.9-10.8) fL Neut # (Auto) Not Reportable Lymph # (Auto) Not Reportable [place] # (Auto) Not Reportable Eos # (Auto) Not Reportable Baso # (Auto) Not Reportable Absolute Nucleated RBC Not Reportable Total Counted 100 Band Neuts % (Manual) 26 H (0 - 10) % Reactive Lymphs % (Man) 5 % Abnorm Lymph % (Manual) 0 % Metamyelocytes % 3 H ( - 0) % Myelocytes % 1 H ( - 0) % Nucleated RBC % Not Reportable Neutrophils # (Manual) 8.3 H (1.5-6.6) 10^3/uL Lymphocytes # (Manual) 1.3 L (1.5-3.5) 10^3/uL Monocytes # (Manual) 0.1 (0.0-1.0) 10^3/uL Eosinophils # (Manual) 0.0 (0-0.7) 10^3/uL Basophils # (Manual) 0.0 (0-0.1) 10^3/uL Differential Comment MANUAL DIFFERENTIAL Manual Slide Review Indicated RBC Morph Micro Appear 2+ ANISOCYTOSIS (NORMAL) Sodium 140 (135-145) mmol/L Potassium 3.6 (3.5-5.0) mmol/L Chloride 105 (101-111) mmol/L Carbon Dioxide 22 (21-32) mmol/L Anion Gap 13.0 (6-13) BUN 15 (6-20) mg/dL Creatinine 1.1 H (0.4-1.0) mg/dL Estimated GFR (MDRD) 52 L (>89) Glucose 106 H (70-100) mg/dL Lactic Acid 1.2 (0.5-2.2) mmol/L Calcium 8.4 L (8.5-10.3) mg/dL Troponin I (<0.49) ng/mL 08/09/18 08/09/18 Range/Units 17:24 17:24 WBC (4.8-10.8) x10^3/uL RBC (4.20-5.40) 10^6/uL Hgb (12.0-16.0) g/dL Hct (37.0-47.0) % MCV (81.0-99.0) fL MCH (27.0-31.0) pg MCHC (32.0-36.0) g/dL RDW (12.0-15.0) % Plt Count (130-450) 10^3/uL MPV (7.9-10.8) fL Neut # (Auto) Lymph # (Auto) [place] # (Auto) Eos # (Auto) Baso # (Auto) Absolute Nucleated RBC Total Counted Band Neuts % (Manual) (0 - 10) % Reactive Lymphs % (Man) % Abnorm Lymph % (Manual) % Metamyelocytes % ( - 0) % Myelocytes % ( - 0) % Nucleated RBC % Neutrophils # (Manual) (1.5-6.6) 10^3/uL Lymphocytes # (Manual) (1.5-3.5) 10^3/uL Monocytes # (Manual) (0.0-1.0) 10^3/uL Eosinophils # (Manual) (0-0.7) 10^3/uL Basophils # (Manual) (0-0.1) 10^3/uL Differential Comment Manual Slide Review RBC Morph Micro Appear (NORMAL) Sodium (135-145) mmol/L Potassium (3.5-5.0) mmol/L Chloride (101-111) mmol/L Carbon Dioxide (21-32) mmol/L Anion Gap (6-13) BUN (6-20) mg/dL Creatinine (0.4-1.0) mg/dL Estimated GFR (MDRD) (>89) Glucose (70-100) mg/dL Lactic Acid 1.8 (0.5-2.2) mmol/L Calcium (8.5-10.3) mg/dL Troponin I < 0.04 (<0.49) ng/mL ABX Reporting Has patient been on IV antibiotics over the past 48 hours?: Yes Assessment/Plan - Problem List (1) Cholecystitis Impression: Improving after cholecystectomy for acute cholecystitis and cholelithiasis. Very much appreciate the hospitalist work here. She is a very complex patient on multiple medications. Her antibiotic was changed last night from Zosyn to cefepime and she has subsequently defervesced. She has a slight anemia that is likely delutional.Continue all current antibiotics. She can continue with regular or pured diet as she desires. There are no dietary restrictions in terms of her gallbladder disease.Other orders per the hospitalist service.My partner, Dr. Mcdaniels will be rounding through the weekend.
--- NOTE | 2018-08-10 17:57 | PROVIDER PROGRESS NOTE ---
Assessment/Plan - Problem List (1) Hypotension Assessment/Plan: Lactic acid was WNL. Troponins are negative. The Echo is pending. Low blood pressure resolved after a 500 cc immediate saline bolus and then she got continued saline at 100 cc an hour and is 1.5 L positive. Torsemide was stopped The BP is 120's-130's. This confirms she had intravascular volume depletion. Patient wishes the Torsemide to be resumed because of the abdominal distention and leg edema. (2) Tachycardia Assessment/Plan: Stable on her frequent B-sukh dosing. Echo results pending. (3) Cholecystitis Assessment/Plan: POD #2 after lap yoel. Advance diet. continue antibiotics (4) Lupus Assessment/Plan: She does not want to be on her CellCept. The steroid dose was increased yesterday and will start tapering it down. - Current Meds Current Meds: Current Medications Generic Name Dose Route Start Last Admin Trade Name Freq PRN Reason Stop Dose Admin Acetaminophen 650 mg 08/09/18 19:59 08/10/18 09:57 Tylenol PO 650 mg Q6HR PRN Administration Pain or Fever > 38C (100.4F) Hydrocodone Bitart/Acetaminophen 1 tab 08/10/18 13:53 08/10/18 14:46 [place] 10 Mg/325 Mg PO 1 tab QID PRN Administration PAIN Budesonide 0.5 mg 08/08/18 21:00 08/09/18 06:35 Pulmicort INH Not Given RTBID LEILA Carboxymethylcellulose 1 drops 08/09/18 19:26 08/09/18 21:45 Refresh 1% Ophth Drops EACHEYE 1 drops PRN PRN Administration Dry Eye Docusate Sodium 250 mg 08/10/18 14:00 08/10/18 14:46 Colace 250mg Capsule PO 250 mg BID LEILA Administration Fluticasone Propionate 1 sprays 08/08/18 18:37 08/09/18 21:43 Flonase SHAYY 1 sprays BID PRN Administration ALLERGIC RHINITIS Gabapentin 300 - 600 mg 08/10/18 14:00 08/10/18 14:46 Neurontin PO Not Given TID LEILA Hydrocortisone Sodium Succinate 50 mg 08/09/18 17:00 08/10/18 16:29 Solu-Cortef IVP 50 mg Q8H LEILA Administration Hydromorphone HCl 1 mg 08/10/18 10:51 08/10/18 16:29 Dilaudid Inj Carp IVP 1 mg Q1HR PRN Administration PAIN Metronidazole 500 mg in 100 mls @ 100 mls/hr 08/09/18 02:00 08/10/18 11:01 Flagyl 500 Mg/100 Ml IV Infused Q8H LEILA Infusion Sodium Chloride 1,000 mls @ 100 mls/hr 08/09/18 15:00 08/10/18 11:15 Normal Saline 0.9% IV Not Given .Q10H LEILA Cefepime HCl 2 gm/ Sodium 100 mls @ 200 mls/hr 08/10/18 02:00 08/10/18 09:20 Chloride IV Infused BID LEILA Infusion Ketorolac Tromethamine 15 mg 08/08/18 18:31 08/10/18 00:05 Toradol Inj (15mg) IVP 08/13/18 18:30 15 mg Q6H PRN Administration PAIN Methocarbamol 500 mg 08/08/18 18:37 08/09/18 04:30 Robaxin PO 500 mg QID PRN Administration Spasms Metoprolol Succinate 25 mg 08/09/18 02:18 08/10/18 13:53 Toprol Xl PO 25 mg Q6H LEILA Administration Montelukast Sodium 10 mg 08/08/18 21:00 08/09/18 20:23 Singulair PO Not Given QPM [facility] Multi-Ingred Cream/Lotion/Oil/Oint 1 applic 08/09/18 19:26 08/09/18 21:44 Lubrifresh Pm Ophth Oint EACHEYE 1 drops QPM PRN Administration Dry Eye Ondansetron HCl 4 mg 08/08/18 18:31 08/10/18 13:53 Zofran Inj IVP 4 mg Q6H PRN Administration Nausea / Vomiting Oxycodone HCl 5 mg 08/09/18 20:00 08/10/18 09:54 Roxicodone PO 5 mg Q4HR PRN Administration PAIN Pantoprazole Sodium 40 mg 08/08/18 19:00 08/10/18 05:41 Protonix IVP 40 mg QDAC LEILA Administration Patient Own Medication 1 each 08/09/18 07:22 08/09/18 21:42 Patient Own Medication PO Not Given QPM LEILA Polyethylene Glycol 17 gm 08/09/18 09:00 08/10/18 09:06 Miralax PO Not Given DAILY LEILA Pregabalin 75 mg 08/08/18 22:00 08/08/18 21:45 Lyrica PO Not Given TID LEILA Simethicone 80 mg 08/09/18 09:00 08/10/18 13:53 Mylicon PO 80 mg 0900,1300,1800,2100 PRN Administration Abdominal Pain Sodium Chloride 10 ml 08/09/18 01:00 08/10/18 16:29 Normal Saline Flush 0.9% IVP 20 ml 0100,0900,1700 LEILA Administration Sodium Chloride 10 ml 08/08/18 18:31 08/10/18 05:38 Normal Saline Flush 0.9% IVP 10 ml PRN PRN Administration NEEDED PER PROVIDER ORDERS Tizanidine HCl 4 mg 08/08/18 20:16 08/09/18 08:42 Zanaflex PO 4 mg TID PRN Administration Spasms Venlafaxine HCl 150 mg 08/10/18 14:00 08/10/18 14:45 Effexor PO 150 mg BID LEILA Administration - Lab Result Lab results reviewed: Yes Fish Bone Diagrams: 08/10/18 08:35 08/10/18 08:35 - Additional Planning My Orders: My Active Orders 08/09/18 17:00 Hydrocortisone Succinate [Solu-CORTEF] 50 mg IVP Q8H 08/09/18 18:58 SANDY Gomez [RC] QSHIFT 08/10/18 13:53 HYDROcodone/ACET 10/325 [[place] 10 mg/325 mg] 1 tab PO QID PRN 08/10/18 13:56 Psyllium [Metamucil] 1 packet PO DAILY PRN 08/10/18 14:00 Docusate Sodium 250Mg Capsule [Colace 250Mg Capsule] 250 mg PO BID Gabapentin [Neurontin] 300 - 600 mg PO TID Venlafaxine [Effexor] 150 mg PO BID 08/10/18 21:00 Nortriptyline [Pamelor] 75 mg PO QPM 08/10/18 Dinner DIET [Low Sodium Diet] [DIET] Subjective - Subjective Patient Reports: Abdominal Pain, Nausea, Shortness of Breath Objective Vital Signs: Vital Signs - 24 hr 08/09/18 08/09/18 08/09/18 18:00 19:52 21:00 Temperature 38.0 C H 37.7 C H Heart Rate [ Brachial] Heart Rate [ 100 Radial] Respiratory 16 Rate Blood Pressure 111/54 L 102/53 L [Left Brachial artery] Blood Pressure [Left Radial artery] O2 Saturation 92 08/09/18 08/09/18 08/10/18 23:35 23:52 00:00 Temperature 38 C H 37.9 C H Heart Rate [ 107 H Brachial] Heart Rate [ 104 H 107 H Radial] Respiratory 16 Rate Blood Pressure [Left Brachial artery] Blood Pressure 89/35 L 97/39 L 98/50 L [Left Radial artery] O2 Saturation 94 08/10/18 08/10/18 08/10/18 01:41 02:50 03:32 Temperature 37.4 C 37.3 C Heart Rate [ Brachial] Heart Rate [ 102 H 105 H Radial] Respiratory Rate Blood Pressure [Left Brachial artery] Blood Pressure 93/44 L 95/47 L [Left Radial artery] O2 Saturation 08/10/18 08/10/18 08/10/18 04:46 05:30 07:33 Temperature 37.2 C 37.3 C 37.1 C Heart Rate [ Brachial] Heart Rate [ 103 H 103 H 98 Radial] Respiratory 16 18 Rate Blood Pressure 117/52 L [Left Brachial artery] Blood Pressure 88/41 L 108/55 L [Left Radial artery] O2 Saturation 94 98 08/10/18 08/10/18 08/10/18 07:54 09:00 13:00 Temperature 37.2 C 36.9 C Heart Rate [ Brachial] Heart Rate [ 103 H 98 Radial] Respiratory 24 18 20 Rate Blood Pressure [Left Brachial artery] Blood Pressure 132/54 H 121/61 [Left Radial artery] O2 Saturation 97 93 95 08/10/18 16:29 Temperature 37.0 C Heart Rate [ Brachial] Heart Rate [ 98 Radial] Respiratory 18 Rate Blood Pressure [Left Brachial artery] Blood Pressure 137/71 H [Left Radial artery] O2 Saturation 97 Oxygen O2 Source Nasal cannula I&O (Last 24 Hrs): Intake and Output Totals x24h 08/08/18 08/09/18 08/10/18 23:59 23:59 23:59 Intake Total 2300 6058.000 3090 Output Total 2700 1700 Balance 2300 3358.000 1390 General: Alert, Oriented x3 HEENT: Mucous membr. moist/pink Neck: Supple Neuro: Alert, Non Focal Cardiovascular: Regular rate Respiratory: No respiratory distress Abdomen: Other (More distended, more firm than yesterday.) Extremities: Other (1+ leg edema) - Results Results: Laboratory Results WBC 10.1 x10^3/uL (4.8-10.8) 08/10/18 08:35 RBC 3.90 10^6/uL (4.20-5.40) L 08/10/18 08:35 Hgb 11.9 g/dL (12.0-16.0) L 08/10/18 08:35 Hct 37.1 % (37.0-47.0) 08/10/18 08:35 MCV 95.1 fL (81.0-99.0) 08/10/18 08:35 MCH 30.5 pg (27.0-31.0) 08/10/18 08:35 MCHC 32.1 g/dL (32.0-36.0) 08/10/18 08:35 RDW 13.3 % (12.0-15.0) 08/10/18 08:35 Plt Count 186 10^3/uL (130-450) 08/10/18 08:35 MPV 10.3 fL (7.9-10.8) 08/10/18 08:35 Neut # (Auto) Not Reportable 08/10/18 08:35 Lymph # (Auto) Not Reportable 08/10/18 08:35 [place] # (Auto) Not Reportable 08/10/18 08:35 Eos # (Auto) Not Reportable 08/10/18 08:35 Baso # (Auto) Not Reportable 08/10/18 08:35 Absolute Nucleated RBC Not Reportable 08/10/18 08:35 Total Counted 100 08/10/18 08:35 Band Neuts % (Manual) 26 % (0-10) H 08/10/18 08:35 Reactive Lymphs % (Man) 5 % 08/10/18 08:35 Abnorm Lymph % (Manual) 0 % 08/10/18 08:35 Metamyelocytes % 3 % (-0) H 08/10/18 08:35 Myelocytes % 1 % (-0) H 08/10/18 08:35 Nucleated RBC % Not Reportable 08/10/18 08:35 Neutrophils # (Manual) 8.3 10^3/uL (1.5-6.6) H 08/10/18 08:35 Lymphocytes # (Manual) 1.3 10^3/uL (1.5-3.5) L 08/10/18 08:35 Monocytes # (Manual) 0.1 10^3/uL (0.0-1.0) 08/10/18 08:35 Eosinophils # (Manual) 0.0 10^3/uL (0-0.7) 08/10/18 08:35 Basophils # (Manual) 0.0 10^3/uL (0-0.1) 08/10/18 08:35 Differential Comment MANUAL DIFFERENTIAL 08/10/18 08:35 Manual Slide Review Indicated 08/10/18 08:35 WBC Morphology NORMAL APPEARANCE (NORMAL) 08/09/18 04:30 Platelet Estimate NORMAL (130-450,000) (NORMAL) 08/09/18 04:30 Platelet Morphology NORMAL APPEARANCE (NORMAL) 08/09/18 04:30 RBC Morph Micro Appear 2+ ANISOCYTOSIS (NORMAL) 08/10/18 08:35 Sodium 140 mmol/L (135-145) 08/10/18 08:35 Potassium 3.6 mmol/L (3.5-5.0) 08/10/18 08:35 Chloride 105 mmol/L (101-111) 08/10/18 08:35 Carbon Dioxide 22 mmol/L (21-32) 08/10/18 08:35 Anion Gap 13.0 (6-13) 08/10/18 08:35 BUN 15 mg/dL (6-20) 08/10/18 08:35 Creatinine 1.1 mg/dL (0.4-1.0) H 08/10/18 08:35 Estimated GFR (MDRD) 52 (>89) L 08/10/18 08:35 Glucose 106 mg/dL (70-100) H 08/10/18 08:35 Lactic Acid 1.2 mmol/L (0.5-2.2) 08/10/18 05:25 Calcium 8.4 mg/dL (8.5-10.3) L 08/10/18 08:35 Total Bilirubin 0.8 mg/dL (0.2-1.0) 08/09/18 04:30 AST 84 IU/L (10-42) H 08/09/18 04:30 ALT 80 IU/L (10-60) H 08/09/18 04:30 Alkaline Phosphatase 41 IU/L (42-121) L 08/09/18 04:30 Troponin I < 0.04 ng/mL (<0.49) 08/09/18 17:24 Total Protein 5.7 g/dL (6.7-8.2) L 08/09/18 04:30 Albumin 3.1 g/dL (3.2-5.5) L 08/09/18 04:30 Globulin 2.6 g/dL (2.1-4.2) 08/09/18 04:30 Albumin/Globulin Ratio 1.2 (1.0-2.2) 08/09/18 04:30 Lipase 30 U/L (22-51) 08/08/18 09:40 Urine Color YELLOW 08/08/18 11:52 Urine Clarity CLEAR (CLEAR) 08/08/18 11:52 Urine pH 8.5 PH (5.0-7.5) H 08/08/18 11:52 Ur Specific [place] 1.010 (1.002-1.030) 08/08/18 11:52 Urine Protein NEGATIVE mg/dL (NEGATIVE) 08/08/18 11:52 Urine Glucose (UA) NEGATIVE mg/dL (NEGATIVE) 08/08/18 11:52 Urine Ketones NEGATIVE mg/dL (NEGATIVE) 08/08/18 11:52 Urine Occult Blood NEGATIVE (NEGATIVE) 08/08/18 11:52 Urine Nitrite NEGATIVE (NEGATIVE) 08/08/18 11:52 Urine Bilirubin NEGATIVE (NEGATIVE) 08/08/18 11:52 Urine Urobilinogen 0.2 (NORMAL) E.U./dL (NORMAL) 08/08/18 11:52 Ur Leukocyte Esterase NEGATIVE (NEGATIVE) 08/08/18 11:52 Ur Microscopic Review NOT INDICATED 08/08/18 11:52 Urine Culture Comments NOT INDICATED 08/08/18 11:52 ABX Reporting Has patient been on IV antibiotics over the past 48 hours?: Yes
[2018-08-10] MEDS: CALCIUM CARBONATE CHEW 500 MG TABLET PO PRN (19:58)
[2018-08-10] MEDS ORDERED: NORTRIPTYLINE 25 MG CAPSULE PO SCH (21:00)
[2018-08-10] MEDS: MONTELUKAST 10 MG TABLET PO SCH ×2 (21:13→21:20)
[2018-08-10] MEDS: ROSUVASTATIN CALCIUM 10 MG PO SCH (21:20)
[2018-08-11] MEDS: METOPROLOL SUCCINATE 25 MG TABLET PO SCH ×3 (01:39→14:04)
[2018-08-11] MEDS: ONDANSETRON 4 MG/2 ML VIAL IVP PRN ×3 (01:50→12:44)
[2018-08-11] MEDS: metroNIDAZOLE 500 MG/100 ML 500 MG/100 ML BAG IV SCH ×2 (01:54→10:36)
[2018-08-11] MEDS: HYDROCORTISONE SUCCINATE 100 MG/2 ML VIAL IVP SCH ×2 (01:55→08:45)
[2018-08-11] MEDS: HYDROmorphone 1 MG/ML CARPUJECT IVP PRN ×4 (01:58→11:13)
[2018-08-11] MEDS: SODIUM CHLORIDE FLUSH 0.9% 10 ML SYRINGE IVP PRN ×4 (02:05→11:15)
[2018-08-11] MEDS: CALCIUM CARBONATE CHEW 500 MG TABLET PO PRN (04:13)
[2018-08-11] MEDS: GABAPENTIN 300 MG CAPSULE PO SCH ×2 (05:45→14:03)
[2018-08-11] MEDS: HYDROcod/ACETAM 10 MG/325 MG TABLET PO PRN (05:45)
[2018-08-11] MEDS: PANTOPRAZOLE 40 MG VIAL IVP SCH (06:53)
[2018-08-11] MEDS: SIMETHICONE CHEW 80 MG TABLET PO PRN ×2 (06:54→08:22)
[2018-08-11] MEDS: CEFEPIME 2 GM in SODIUM CHLORIDE 0.9% MINIBAG 100 ML IV SCH (08:35)
[2018-08-11] MEDS: DOCUSATE SODIUM 250 MG CAPSULE PO SCH (08:38)
[2018-08-11] MEDS: POLYETHYLENE GLYCOL 3350 17 GM PACKET PO SCH (08:38)
[2018-08-11] MEDS: SODIUM CHLORIDE FLUSH 0.9% 10 ML SYRINGE IVP SCH (08:38)
[2018-08-11 09:33] LABS: BASOPHILS % (AUTO) 0.2 %; EOSINOPHILS % (AUTO) 0.1 %; HGB - HEMOGLOBIN 11.1 g/dL (12.0-16.0); LYMPHOCYTES # (AUTO) 0.5 10^3/uL (1.5-3.5); LYMPHOCYTES % (AUTO) 5.5 %; MEAN CORPUSCULAR HEMOGLOBIN 29.7 pg (27.0-31.0); MEAN CORPUSCULAR HGB CONC 32.1 g/dL (32.0-36.0); MEAN CORPUSCULAR VOLUME 92.5 fL (81.0-99.0); MEAN PLATELET VOLUME 9.8 fL (7.9-10.8); MONOCYTES # (AUTO) 0.7 10^3/uL (0.0-1.0); MONOCYTES % (AUTO) 8.4 %; NEUTROPHILS % (AUTO) 85.1 %; PLT - PLATELET COUNT 172 10^3/uL (130-450); RED BLOOD COUNT 3.74 10^6/uL (4.20-5.40); RED CELL DISTRIBUTION WIDTH 13.2 % (12.0-15.0); WHITE BLOOD COUNT 8.2 x10^3/uL (4.8-10.8)
[2018-08-11] MEDS: VENLAFAXINE 37.5 MG TABLET PO SCH (09:40)
[2018-08-11 09:46] LABS: ALBUMIN 2.8 g/dL (3.2-5.5); ALBUMIN/GLOBULIN RATIO 0.9 (1.0-2.2); BILIRUBIN,TOTAL 0.9 mg/dL (0.2-1.0); CALCIUM 8.2 mg/dL (8.5-10.3)
[2018-08-11 10:04] LABS: RBC MORPHOLOGY (MULTIPLE) 1+ ANISOCYTOSIS (NORMAL)
[2018-08-11] MEDS ORDERED: TORSEMIDE 20 MG TABLET PO SCH (10:33)
[2018-08-11] MEDS ORDERED: HYDROmorphone 1 MG/ML CARPUJECT IVP PRN (10:35)
[2018-08-11] MEDS ORDERED: POTASSIUM CHLORIDE 20 MEQ TABLET PO SCH ×2 (10:40→14:00)
--- NOTE | 2018-08-11 10:42 | PROVIDER PROGRESS NOTE ---
Subjective - General Admit Date: 08/09/18 Procedure Date: 08/08/18 Post Op Days: 3 Procedure Performed: Laparoscopic cholecystectomy with closure of iatrogenic enterotomy - Review of Systems Wound/Incisions: positive: Healing well General: positive: Fatigue, Malaise HEENT: positive: No symptoms Pulmonary: positive: Shortness of breath Cardiovascular: positive: No symptoms Gastrointestinal: positive: Nausea, Vomiting, Difficulty swallowing, Abdominal pain, Flatus, Other (Frequent belching "from the depths of my bowels") Genitourinary: positive: Retention (Barbosa was placed for retention. Patient refusing to have it removed despite my telling her that it increases her risk of infection and that this is a quality measure that is looked at. Adamently refuses.) Musculoskeletal: positive: Back pain (Says it is chronic along with hip pain and this precludes her from walking. Asked that I call Dr. Weinstein who "would explain it to me.") Skin: positive: No symptoms Psychiatric: positive: Agitation - Other Other Information/Narrative: She is concerned that "something is going on in her abdomen." Admits that she is having bowel movements and flatus but also "belching from the depths of her bowels." Thinks that her upper abdomen is "disconnected" from her lower (I am assuming we are talking bowel function). Objective - Patient Data Reviewed Vital Signs: Yes Vital Signs: Vital Signs x48h Temp Pulse Resp BP BP Pulse Ox 08/11/18 08:14 36.7 C 98 16 140/77 H 92 08/11/18 04:22 36.8 C 98 18 129/74 93 Intake & Output: Intake and Output Totals x24h 08/09/18 08/10/18 08/11/18 23:59 23:59 23:59 Intake Total 6058.000 3760 680 Output Total 2700 2450 2300 Balance 3358.000 1310 -1620 - Lab Results Lab Results: 08/11/18 09:27 08/11/18 09:27 Other Lab Results: Lab Results x24hrs 08/11/18 08/11/18 Range/Units 09:27 09:27 WBC 8.2 (4.8-10.8) x10^3/uL RBC 3.74 L (4.20-5.40) 10^6/uL Hgb 11.1 L (12.0-16.0) g/dL Hct 34.6 L (37.0-47.0) % MCV 92.5 (81.0-99.0) fL MCH 29.7 (27.0-31.0) pg MCHC 32.1 (32.0-36.0) g/dL RDW 13.2 (12.0-15.0) % Plt Count 172 (130-450) 10^3/uL MPV 9.8 (7.9-10.8) fL Neut # (Auto) 7.0 H (1.5-6.6) 10^3/uL Lymph # (Auto) 0.5 L (1.5-3.5) 10^3/uL [place] # (Auto) 0.7 (0.0-1.0) 10^3/uL Eos # (Auto) 0.0 (0.0-0.7) 10^3/uL Baso # (Auto) 0.0 (0.0-0.1) 10^3/uL Absolute Nucleated RBC 0.00 x10^3/uL Nucleated RBC % 0.0 /100WBC Manual Slide Review Indicated RBC Morph Micro Appear 1+ ANISOCYTOSIS (NORMAL) Sodium 139 (135-145) mmol/L Potassium 2.8 L (3.5-5.0) mmol/L Chloride 101 (101-111) mmol/L Carbon Dioxide 24 (21-32) mmol/L Anion Gap 14.0 H (6-13) BUN 14 (6-20) mg/dL Creatinine 1.0 (0.4-1.0) mg/dL Estimated GFR (MDRD) 58 L (>89) Glucose 121 H (70-100) mg/dL Calcium 8.2 L (8.5-10.3) mg/dL Total Bilirubin 0.9 (0.2-1.0) mg/dL AST 31 (10-42) IU/L ALT 51 (10-60) IU/L Alkaline Phosphatase 40 L (42-121) IU/L Total Protein 6.0 L (6.7-8.2) g/dL Albumin 2.8 L (3.2-5.5) g/dL Globulin 3.2 (2.1-4.2) g/dL Albumin/Globulin Ratio 0.9 L (1.0-2.2) - Current Medications Current Medications: Current Medications Generic Name Dose Route Start Last Admin Trade Name Freq PRN Reason Stop Dose Admin Acetaminophen 650 mg 08/09/18 19:59 08/10/18 09:57 Tylenol PO 650 mg Q6HR PRN Administration Pain or Fever > 38C (100.4F) Hydrocodone Bitart/Acetaminophen 1 tab 08/10/18 13:53 08/11/18 05:45 [place] 10 Mg/325 Mg PO 1 tab QID PRN Administration PAIN Budesonide 0.5 mg 08/08/18 21:00 08/09/18 06:35 Pulmicort INH Not Given RTBID LEILA Calcium Carbonate/Glycine 500 mg 08/10/18 19:41 08/11/18 04:13 Tums PO 500 mg TID PRN Administration Heartburn Carboxymethylcellulose 1 drops 08/09/18 19:26 08/09/18 21:45 Refresh 1% Ophth Drops EACHEYE 1 drops PRN PRN Administration Dry Eye Docusate Sodium 250 mg 08/10/18 14:00 08/11/18 08:38 Colace 250mg Capsule PO Not Given BID LEILA Fluticasone Propionate 1 sprays 08/08/18 18:37 08/09/18 21:43 Flonase SHAYY 1 sprays BID PRN Administration ALLERGIC RHINITIS Gabapentin 300 - 600 mg 08/10/18 14:00 08/11/18 05:45 Neurontin PO 300 mg TID LEILA Administration Hydrocortisone Sodium Succinate 50 mg 08/09/18 17:00 08/11/18 08:45 Solu-Cortef IVP 50 mg Q8H LEILA Administration Hydromorphone HCl 1 mg 08/10/18 10:51 08/11/18 09:41 Dilaudid Inj Carp IVP 1 mg Q1HR PRN Administration PAIN Metronidazole 500 mg in 100 mls @ 100 mls/hr 08/09/18 02:00 08/11/18 10:36 Flagyl 500 Mg/100 Ml IV 100 mls/hr Q8H LEILA Administration Cefepime HCl 2 gm/ Sodium 100 mls @ 200 mls/hr 08/10/18 02:00 08/11/18 09:05 Chloride IV Infused BID LEILA Infusion Ketorolac Tromethamine 15 mg 08/08/18 18:31 08/10/18 00:05 Toradol Inj (15mg) IVP 08/13/18 18:30 15 mg Q6H PRN Administration PAIN Methocarbamol 500 mg 08/08/18 18:37 08/09/18 04:30 Robaxin PO 500 mg QID PRN Administration Spasms Metoprolol Succinate 25 mg 08/09/18 02:18 08/11/18 08:43 Toprol Xl PO 25 mg Q6H LEILA Administration Montelukast Sodium 10 mg 08/08/18 21:00 08/10/18 21:20 Singulair PO Not Given QPM LEILA Multi-Ingred Cream/Lotion/Oil/Oint 1 applic 08/09/18 19:26 08/09/18 21:44 Lubrifresh Pm Ophth Oint EACHEYE 1 drops QPM PRN Administration Dry Eye Nortriptyline HCl 75 mg 08/10/18 21:00 08/10/18 21:13 Pamelor PO 75 mg QPM LEILA Administration Ondansetron HCl 4 mg 08/08/18 18:31 08/11/18 08:16 Zofran Inj IVP 4 mg Q6H PRN Administration Nausea / Vomiting Oxycodone HCl 5 mg 08/09/18 20:00 08/10/18 09:54 Roxicodone PO 5 mg Q4HR PRN Administration PAIN Pantoprazole Sodium 40 mg 08/08/18 19:00 08/11/18 06:53 Protonix IVP 40 mg QDAC LEILA Administration Rosuvastatin Calcium 1 each 08/09/18 07:22 08/10/18 21:20 [Crestor] 10 Mg Tab PO 1 each QPM LEILA Administration Polyethylene Glycol 17 gm 08/09/18 09:00 08/11/18 08:38 Miralax PO Not Given DAILY LEILA Pregabalin 75 mg 08/08/18 22:00 08/08/18 21:45 Lyrica PO Not Given TID LEILA Simethicone 80 mg 08/09/18 09:00 08/11/18 08:22 Mylicon PO 80 mg 0900,1300,1800,2100 PRN Administration Abdominal Pain Sodium Chloride 10 ml 08/09/18 01:00 08/11/18 08:38 Normal Saline Flush 0.9% IVP 10 ml 0100,0900,1700 LEILA Administration Sodium Chloride 10 ml 08/08/18 18:31 08/11/18 06:54 Normal Saline Flush 0.9% IVP 10 ml PRN PRN Administration NEEDED PER PROVIDER ORDERS Tizanidine HCl 4 mg 08/08/18 20:16 08/09/18 08:42 Zanaflex PO 4 mg TID PRN Administration Spasms Venlafaxine HCl 150 mg 08/10/18 14:00 08/11/18 09:40 Effexor PO 150 mg BID LEILA Administration - Physical Exam Wound/Incisions: positive: Healing well. negative: Erythema Eyes Bilateral: positive: No lid inflammation, Conjunctivae nml, No scleral icterus ENT: positive: No signs of dehydration Neck: positive: Trachea midline Respiratory: positive: Other (Posterior bibasilar crackles.) Cardiovascular: positive: Regular rate & rhythm Abdomen: positive: Tenderness (Incisional.), Abnml bowel sounds (Decreased.), Other (Obese. The wick in the umbilical wound was removed. Dressing applied. Absolutely no evidence of infection.) Skin: positive: Color nml Extremities: positive: Nml appearance Neurologic/Psychiatric: positive: Oriented x3, Motor nml, Sensation nml, Other (Her mood is very combative - she is unwilling to participate in any therapeutic interventions and keeps informing me that "we simply do not understand.") ABX Reporting Has patient been on IV antibiotics over the past 48 hours?: Yes Impression/Plan - Problem List Problem List: POD 3 s/p laparoscopic cholecystectomy with iatrogenic perforation of adherent small bowel. 1) FEN Although patient is having bowel function she wants nothing by mouth because it is causing her pain and belching. She does not want oral p[ain medication. 2) Barbosa Placed for retention postoperatively and patient refuses top have it removed. This is despite being instructed that it increases her risk of infection and prompt removal is a quality measure. 3) ID On Cefipime and Flagyl. No evidence of ongoing infection but bibasilar crackles in an obese non-compliant patient who has not been out of bed is concerning for the development of atelectasis-pneumonia. Doubt any intra- abdominal process with bowel function, a normal WBC, no fever and no tachycardia (mindful that she is on a beta sukh and may not manifest with tachycardia). The patient, in the presence of nursing, has requested a transfer to [facility] stating that she feels they have more thinking people there. She also feels that they have greater resources to deal with her unique issues. As I believe that most of the ongoing issues now are medical rather than surgical, Dr. Correa has been very very kind to make the phone calls regarding the transfer. My opinion would be that she needs to be placed on a hospitalists service at [facility] with general surgery on consult just in case there is an issue (I do not believe there currently is a surgical issue). I wished the patient a speedy recovery and good health and explained to the patient and her that we would do everything we could to have her transferred as expeditiously as possible. Tonya disclaimer: This document was created in part using voice recognition technology. Because of the inherent limitations of the system ([employer]'s [employer] user manual states that the licensee understands that speech recognition is a statistical process and that recognition errors are inherent in the process), occasional same sounding word substitutions and grammatical errors do occur and persist despite proofreading. Please read this document for context.
[2018-08-11] MEDS ORDERED: FUROSEMIDE 40 MG/4 ML VIAL IVP ONE (11:02)
[2018-08-11] MEDS: POTASSIUM CHLOR 10 MEQ/100 ML 10 MEQ/100 ML BAG IV SCH ×3 (12:42→15:04)
[2018-08-11] MEDS ORDERED: PROCHLORPERAZINE 10 MG/2 ML VIAL IVP PRN (12:44)
--- NOTE | 2018-08-11 12:51 | Discharge Plan ---
Discharge Plan Problem Reviewed?: Yes Disposition: 02 Transfer Acute Care Hosp Condition: Fair No Smoking: If you smoke, Please STOP! Call for help. Follow-up with: Neida Lin MD [Primary Care Provider] -
--- NOTE | 2018-08-11 12:53 | DISCHARGE SUMMARY ---
Discharge Summary Admit Date: 08/08/18 Discharge Date: 08/11/18 Discharging Provider: Dr Luciana Correa (Hospitalist) for Dr Mcdaniels and Dr Alegre (Gen Surgeons) Code Status: Attempt Resuscitation Condition at Discharge: Fair Discharge Disposition: 02 Transfer Acute Care Hosp Discharge Facility Name: [facility] - DIAGNOSES Admission Diagnoses: 1) Acute cholecystitis 2) Depression history 3) Tachycardia history 4) Chronic leg edema 5) Lupus-like syndrome 6) Hx of asthma Discharge Diagnoses with Status of Each Condition: See below - HPI History of Present Illness: This is a 52-year-old white female with history of obesity, unexplained tachycardia (possibly POTS syndrome), history of asthma, depression, lupus-like syndrome with arthritis, fibromyalgia and Sjogren's syndrome (all according to the patient). She presented with intermittent abdominal pain for several weeks and then severe abdominal pain with nausea vomiting to the ER, was found to have a WBC of 9.8 with a left shift and ultrasound findings of cholecystitis. She was taken to the operating room for a laparoscopic cholecystectomy, then managed on the Surgical service with Hospitalist consulting. - CONSULTS | PROCEDURES Consultations: Dr Correa (Hospitalist) Procedures: Laparoscopic cholecystectomy, lysis of adhesions and repair of iatrogenic laceration of adherent small bowel - HOSPITAL COURSE Hospital Course: 1) Acute cholecystitis. The gallbladder was successfully removed laparoscopically. Upon entering the abdomen, the scope entered a portion of small bowel and this required repair of the small bowel and lysis of adhesions away from the anterior abdominal wall. Post-op, she was started on prn pain medications, IV cefepime and iv Flagyl and her diet was advanced as tolerated. On all postop days, she was only tolerating full liquid diet, she still had some pain, also complained of abdominal distention (which possibly developed from IV fluid boluses, that were ordered to treat hypotension, see below) which was causing her shortness of breath and her appetite did not improve. On postop day #2 she started to have flatus and a bowel movement. On postop day #3 she got more nauseated and started vomiting. She was requesting Dilaudid q. one hour. It was explained to her that the narcotic may be adding to her nausea or an ileus. The patient requested a transfer to [facility], because she has established care with a Residential Field Manager. She was kindly accepted in transfer by Dr. Tobar of the surgical service. 2) Hypotension. On postop day #1, she complained of urinary retention which was confirmed, and she required a Barbosa placement. At this time she also had a sudden drop in blood pressure to 69 systolic and a Hospitalist consult was requested. She received a bolus of LR and then further saline IV fluids which corrected her BP to 120-130's. Her creat had increased from 1.0 at admission to 1.3 on this day, suggesting volume depletion. She had negative troponins, EKG without acute holbrook es, lactic acid that was normal and no evidence of blood loss. The patient reported that she always runs a low blood pressure: that 90 systolic could be normal and she was in fact asymptomatic and mentating with the temporary blood pressure in the 70s and 80s. 3) Tachycardia. To the Hospitalist fundraising consultant, she described a history of 10 years of tachycardia, treated with Metoprolol Succinate every 6 hours. She does not remember ever having an EP study or cardiac catheterization. She remembers having a stress test and Echo approximately 2 years ago, which were both normal, she stated. The medication was continued here. An Echo was ordered, it was not completed by the time of transfer. 4) Chronic leg edema. Patient reports leg edema for the past 2 years for which she is on daily Torsemide. An Echo was ordered, it was not completed by the time of transfer. The Torsemide was discontinued on the day of her hypotension and she became 2 L positive after her fluid boluses. At that point she complained of worsening leg edema and worsening abdominal distention resulting in the above abdominal complaints. A chest x-ray done on 08/09/2018, did show mild volume overload and cardiomegaly. Her Torsemide was resumed on 08/09/18, but was not given on 08/10/2018 because of clinical impression of dehydration with a very dry oral mucosa. 5) Lupus-like syndrome. The patient had been on CellCept and daily Prednisone prior to this admission. She was also on several medications for chronic pain. The medications were re sumed after surgery (with the exception of the CellCept, which the patient requested not be restated), and she received stress doses of Solumedrol intra- op and Hydrocortisone postop. The Dilaudid was also requested for pain control of her musculoskeletal pain. 6) Acute urinary retention. And postop day #1, she had 600 cc of residual fluid on bladder scanning. A Barbosa catheter was placed. By postop day #3, the Barbosa was ordered to be discontinued but the patient refused for it to be discontinued. 7) Migraine. Postop day #3, the patient complained of a migraine and requested and received her "usual treatment" using Compazine 5 - 10 mg IV every 6 hours, which controls her migraine pain. 8) Hypokalemia. This was felt to be from decreased intake and loop diuretic use. She received oral and IV potassium replacements for serum Potassium was as low as 2.8 9) History of Depression. She was kept on her home anti-depressants while here. 10) History of Asthma. She was kept on her same asthma meds prn while here. - ALLERGIES Allergies/Adverse Reactions: Allergies Allergy/AdvReac Type Severity Reaction Status Date / Time adhesive tape Allergy Unknown Verified 08/08/18 11:20 albuterol Allergy Unknown Verified 08/08/18 11:20 leflunomide [From Arava] Allergy Hives Verified 08/08/18 09:46 levocetirizine Allergy Cramps Verified 08/08/18 11:20 levofloxacin [From Levaquin] Allergy Unknown Verified 08/08/18 09:47 minocycline Allergy Unknown Verified 08/08/18 11:20 epinephrine AdvReac Mild Unknown Verified 08/08/18 08:53 atorvastatin AdvReac Cramps Verified 08/08/18 11:20 - MEDICATIONS Home Medications: Ambulatory Orders Medication Instructions Recorded Confirmed Calcium Carbonate [Tums (Calcium 1,000 mg PO DAILY 03/24/17 08/08/18 Carbonate 500mg)] Cholecalciferol (Vitamin D3) 2,000 units PO DAILY 03/24/17 08/08/18 [Vitamin D3] Cyanocobalamin (Vitamin B-12) 50 mcg PO DAILY 03/24/17 08/08/18 [Vitamin B-12 (100mcg tab)] Fluticasone 110 Mcg [Flovent] 1 puffs INH BID 03/24/17 08/08/18 Fluticasone [Flonase] 1 spray SHAYY BID PRN 03/24/17 08/08/18 Levalbuterol Tartrate [Xopenex Hfa] 1 puffs INH Q4H PRN 03/24/17 08/08/18 Levalbuterol [Xopenex] 1.25 mg INH Q4H PRN 03/24/17 08/08/18 Methocarbamol 500 mg PO QID PRN 03/24/17 08/08/18 Metoprolol Succinate 25 mg PO QID 03/24/17 08/08/18 Montelukast [Singulair] 10 mg PO QPM 03/24/17 08/08/18 Mycophenolate Mofetil 1,500 mg PO BID 03/24/17 08/10/18 Pnv with Ca,No.72/Iron/FA [Preplus 1 tab PO DAILY 03/24/17 08/08/18 Ca-Fe 27 mg-FA 1 mg Tb] Potassium Chloride 80 meq PO DAILY 03/24/17 08/10/18 Prednisone 5 mg PO DAILY 03/24/17 08/08/18 Prochlorperazine Maleate 10 mg PO Q8H PRN 03/24/17 08/08/18 Rosuvastatin Calcium [Crestor] 10 mg PO QPM 03/24/17 08/08/18 Torsemide 20 mg PO DAILY 03/24/17 08/08/18 Naproxen 500 mg PO BID PRN #30 tablet 06/07/17 08/08/18 Gabapentin 300 - 600 mg PO TID 08/08/18 08/10/18 Hydrocodone/Acetaminophen 1 tab PO QID PRN 08/08/18 08/10/18 [Hydrocodone-Acetamin 10-325 mg] Alprazolam [Xanax] 0.5 mg PO TID PRN 08/10/18 08/10/18 Nortriptyline HCl 75 mg PO QPM 08/10/18 08/10/18 Venlafaxine HCl 150 mg PO BID 08/10/18 08/10/18 - PHYSICAL EXAM AT DISCHARGE General Appearance: positive: Mild distress, Other (morbidly obese WF (BMI 36), is nauseated and vomiting) Eyes Bilateral: positive: Normal inspection ENT: positive: Dry mucous membranes Neck: positive: Nml inspection, Other (Obese) Respiratory: positive: No respiratory distress, Breath sounds nml Cardiovascular: positive: Regular rate & rhythm, No murmur Abdomen: positive: Non-tender, Other (Mildly distended, no guarding or rebound, normal bowel sounds in bilateral lower quadrants) Skin: positive: Pallor Extremities: positive: Other (1+ pretobial edema) Neurologic/Psychiatric: positive: Oriented x3 - LABS Result Diagrams: 08/11/18 09:27 08/11/18 09:27 - DIAGNOSTIC IMAGING Diagnostic Imaging Results: Final report reviewed Diagnostic Imaging Results Comments: Chest x-ray from 08/09/2018: Small left pleural effusion with underlying atelectasis versus scarring and cardiomegaly with azygous fullness, possibly an early sign of failure. Abdominal ultrasound from 08/08/2018: Sonographic findings concerning for acute cholecystitis. Moderate fatty liver. Large region of focal fat sparing. No obvious mass or intrahepatic bile duct dilation. Normal common bile duct. - FOLLOW UP Follow Up: F/U with PCP after DCh from [facility]
[2018-08-11] MEDS ORDERED: WATER FOR INJECTION,STERILE 20 ML ONE (12:59)
[2018-08-11 15:59] VITALS: BP 100/61
== END 2018-08-11 15:47 | disposition short-term general hospital (02) | DRG 315 ==
LOC: ED 08:47 → SDS 17:04 → MS2 18:31 → OBSVTOIN 08-09 16:48
PROVIDERS: ADMIT Surgery; ATTEND Internal Medicine
PROC: 0DQ80ZZ Repair Small Intestine, Open Approach (ICD-10-PCS; 2018-08-08)
PROC: 0FT44ZZ Resection of Gallbladder, Percutaneous Endoscopic Approach (ICD-10-PCS; principal; 2018-08-08 17:15)
DX: K80.12 Calculus of gallbladder with acute and chronic cholecystitis without obstruction (principal); I95.9 Hypotension, unspecified; K91.71 Accidental puncture and laceration of a digestive system organ or structure during a digestive system procedure; E87.1 Hypo-osmolality and hyponatremia; K80.00 Calculus of gallbladder with acute cholecystitis without obstruction; Y83.6 Removal of other organ (partial) (total) as the cause of abnormal reaction of the patient, or of later complication, without mention of misadventure at the time of the procedure; Y92.234 Operating room of hospital as the place of occurrence of the external cause; K66.0 Peritoneal adhesions (postprocedural) (postinfection); E78.00 Pure hypercholesterolemia, unspecified; F32.9 Major depressive disorder, single episode, unspecified; Z87.19 Personal history of other diseases of the digestive system; Z87.898 Personal history of other specified conditions; R60.0 Localized edema; Z87.891 Personal history of nicotine dependence; Z86.79 Personal history of other diseases of the circulatory system; J45.909 Unspecified asthma, uncomplicated; R00.0 Tachycardia, unspecified; M79.7 Fibromyalgia; M35.00 Sjogren syndrome, unspecified; M19.90 Unspecified osteoarthritis, unspecified site; R33.9 Retention of urine, unspecified; E86.0 Dehydration; I51.7 Cardiomegaly; E87.70 Fluid overload, unspecified; T50.3X5A Adverse effect of electrolytic, caloric and water-balance agents, initial encounter; Y92.230 Patient room in hospital as the place of occurrence of the external cause; E87.6 Hypokalemia; T50.1X5A Adverse effect of loop [high-ceiling] diuretics, initial encounter; D64.9 Anemia, unspecified; R11.2 Nausea with vomiting, unspecified; G89.29 Other chronic pain; M54.9 Dorsalgia, unspecified; M25.559 Pain in unspecified hip; G43.909 Migraine, unspecified, not intractable, without status migrainosus; E66.01 Morbid (severe) obesity due to excess calories; Z79.51 Long term (current) use of inhaled steroids; Z79.899 Other long term (current) drug therapy; Z68.36 Body mass index [BMI] 36.0-36.9, adult; Z79.52 Long term (current) use of systemic steroids; Z91.19 Patient's noncompliance with other medical treatment and regimen
CPT/HCPCS: 36415; 44602; 47562; 71045; 76705; 80048; 80053; 81003; 83605; 83690; 83735; 84132; 84484; 85025; 85027; 93005; 96361; 96365; 96366; 96367; 96375; 96376; 99284; A9270; G0378; J0131; J1170; J2765; J3010; J7120; J7512; 81001; 87086; 99285

== ENCOUNTER 2018-08-26 13:04 | Outpatient (CLI) | payer MEDICARE ==
[2018-08-26 13:28] LABS: CALCIUM 9.5 mg/dL (8.5-10.3)
== END 2018-08-26 13:05 | disposition home or self-care (01) ==
LOC: LAB 13:04
PROVIDERS: ATTEND Internal Medicine
DX: I50.32 Chronic diastolic (congestive) heart failure (principal)
CPT/HCPCS: 36415; 80048; 83880

== ENCOUNTER 2019-02-23 14:17 | Outpatient (CLI) | payer MEDICARE | END 2019-02-23 14:18 | disposition critical access hospital (66) | LOC: EMS 14:17 | PROVIDERS: ATTEND Surgery | DX: R10.10 Upper abdominal pain, unspecified (principal); R11.2 Nausea with vomiting, unspecified | CPT/HCPCS: A0425; A0429 ==

== ENCOUNTER 2019-02-23 14:31 | Inpatient (IN) | payer MEDICARE ==
--- NOTE | 2019-02-23 15:04 | ED Physician Documentation ---
PD HPI ABD PAIN - Stated complaint Stated Complaint: ABD PX - Chief complaint Chief Complaint: Abd Pain - History obtained from History obtained from: Patient - History of Present Illness Timing - onset: How many hours ago (few) Timing - duration: Hours (few) Timing - details: Abrupt onset, Still present Quality: Cramping, Aching, Fullness/distended, Pain Location: Other (upper abd) Radiation: Upper back Improved by: Vomiting Worsened by: Position, Palpation Associated symptoms: Nausea, Vomiting. No: Fever, Diarrhea, Constipation Similar symptoms before: Diagnosis (partial bowel obstruction, treated non- operatively in [place].) Recently seen: Not recently seen (She had had cholecystitis with cholecystectomy in August 2018 with a perforation of the bowel on introduction of the laparoscope. She then had open surgery with lysis of adhesions and repair of the bowel. She had some ileus or partial obstruction subsequently and did end up being tr ansferred to [facility]. She was treated there nonoperatively but was there for over a week and subsequently discharged improved. She had been doing okay since that time.) Review of Systems Constitutional: denies: Fever, Chills, Myalgias Nose: denies: Rhinorrhea / runny nose, Congestion Throat: denies: Sore throat Respiratory: denies: Cough GI: reports: Abdominal Pain, Abdominal Swelling (today), Nausea, Vomiting. denies: Constipation, Bloody / black stool : denies: Dysuria, Frequency PD PAST MEDICAL HISTORY - Past Medical History Cardiovascular: High cholesterol, Angina, Arrhythmia Respiratory: Asthma Neuro: Migraines GI: Diverticulitis Psych: Depression Musculoskeletal: Osteoarthritis, Fibromyalgia, Other (lupus) Derm: None, Other (lupus) - Past Surgical History Past Surgical History: Yes /[employer]EDER: section, Breast reduction (laparoscopic [employer]ER), Other (l) - Present Medications Home Medications: Ambulatory Orders Medication Instructions Recorded Confirmed Calcium Carbonate [Tums (Calcium 1,000 mg PO DAILY 03/24/17 08/08/18 Carbonate 500mg)] Cholecalciferol (Vitamin D3) 2,000 units PO DAILY 03/24/17 08/08/18 [Vitamin D3] Cyanocobalamin (Vitamin B-12) 50 mcg PO DAILY 03/24/17 08/08/18 [Vitamin B-12 (100mcg tab)] Fluticasone 110 Mcg [Flovent] 1 puffs INH BID 03/24/17 08/08/18 Fluticasone [Flonase] 1 spray SHAYY BID PRN 03/24/17 08/08/18 Levalbuterol Tartrate [Xopenex Hfa] 1 puffs INH Q4H PRN 03/24/17 08/08/18 Levalbuterol [Xopenex] 1.25 mg INH Q4H PRN 03/24/17 08/08/18 Metoprolol Succinate 25 mg PO QID 03/24/17 08/08/18 Montelukast [Singulair] 10 mg PO QPM 03/24/17 08/08/18 Pnv,Calcium 72/Iron/Folic Acid 1 tab PO DAILY 03/24/17 08/08/18 [Preplus Ca-Fe 27 mg-FA 1 mg Tb] Potassium Chloride 80 meq PO DAILY 03/24/17 08/10/18 Prednisone 5 mg PO DAILY 03/24/17 08/08/18 Prochlorperazine Maleate 10 mg PO Q8H PRN 03/24/17 08/08/18 Rosuvastatin Calcium [Crestor] 10 mg PO QPM 03/24/17 08/08/18 Torsemide 20 mg PO DAILY 03/24/17 08/08/18 methocarbamoL [Methocarbamol] 500 mg PO QID PRN 03/24/17 08/08/18 mycophenolate mofetiL 1,500 mg PO BID 03/24/17 08/10/18 [Mycophenolate Mofetil] Naproxen 500 mg PO BID PRN #30 tablet 06/07/17 08/08/18 Gabapentin 300 - 600 mg PO TID 08/08/18 08/10/18 Hydrocodone/Acetaminophen 1 tab PO QID PRN 08/08/18 08/10/18 [Hydrocodone-Acetamin 10-325 mg] Alprazolam [Xanax] 0.5 mg PO TID PRN 08/10/18 08/10/18 Nortriptyline HCl 75 mg PO QPM 08/10/18 08/10/18 Venlafaxine HCl 150 mg PO BID 08/10/18 08/10/18 - Allergies Allergies/Adverse Reactions: Allergies Allergy/AdvReac Type Severity Reaction Status Date / Time adhesive tape Allergy Unknown Verified 08/08/18 11:20 albuterol Allergy Unknown Verified 08/08/18 11:20 leflunomide [From Arava] Allergy Hives Verified 08/08/18 09:46 levocetirizine Allergy Cramps Verified 08/08/18 11:20 levofloxacin [From Levaquin] Allergy Unknown Verified 08/08/18 09:47 minocycline Allergy Unknown Verified 08/08/18 11:20 epinephrine AdvReac Mild Unknown Verified 08/08/18 08:53 atorvastatin AdvReac Cramps Verified 08/08/18 11:20 - Social History Does the pt smoke?: No Smoking Status: Former smoker Does the pt drink ETOH?: Yes Does the pt have substance abuse?: No - Immunizations Immunizations are current?: Yes PD ED PE NORMAL - Vitals Vital signs reviewed: Yes - General General: Alert and oriented X 3, Well developed/nourished, Other (She appears uncomfortable. She is holding an emesis bag.) - HEENT HEENT: Pharynx benign - Neck Neck: Supple, no meningeal sign, No adenopathy - Cardiac Cardiac: RRR, No murmur - Respiratory Respiratory: Clear bilaterally - Abdomen Abdomen: Soft, No organomegaly, Other (She is obese. Shares tenderness in the upper abdomen with some mild distention. Bowel sounds are hyperactive. She is tender in the epigastric area in particular. Lower abdomen is nontender.) - Female Female : Deferred - Rectal Rectal: Deferred - Back Back: No CVA TTP - Derm Derm: Normal color, Warm and dry - Extremities Extremities: No calf tenderness / cord, Other (General tenderness in muscles.) - Neuro Neuro: Alert and oriented X 3, No motor deficit, Normal speech Results - Vitals Vitals: Vital Signs - 24 hr 02/23/19 02/23/19 02/23/19 14:39 15:35 17:48 Temperature 36.6 C Heart Rate 73 62 77 Respiratory 18 18 18 Rate Blood Pressure 133/72 H 135/74 H 121/64 O2 Saturation 100 91 L 98 02/23/19 18:57 Temperature Heart Rate 79 Respiratory 18 Rate Blood Pressure 117/65 O2 Saturation 100 Oxygen O2 Source Room air - Labs Labs: Laboratory Tests 02/23/19 02/23/19 02/23/19 15:31 15:31 15:31 WBC 12.9 H RBC 4.56 Hgb 13.6 Hct 42.8 MCV 93.9 MCH 29.8 MCHC 31.8 L RDW 12.5 Plt Count 253 MPV 9.6 Neut # (Auto) 10.0 H Lymph # (Auto) 1.4 L Young # (Auto) 1.4 H Eos # (Auto) 0.1 Baso # (Auto) 0.0 Absolute Nucleated RBC 0.00 Nucleated RBC % 0.0 Sodium 138 Potassium 4.0 Chloride 100 L Carbon Dioxide 26 Anion Gap 12.0 BUN 12 Creatinine 1.1 H Estimated GFR (MDRD) 52 L Glucose 120 H Lactic Acid 2.8 H Calcium 9.9 Magnesium 2.1 Total Bilirubin 0.8 AST 27 ALT 32 Alkaline Phosphatase 43 Total Protein 7.0 Albumin 4.1 Globulin 2.9 Albumin/Globulin Ratio 1.4 Lipase 36 Urine Color Urine Clarity Urine pH Ur Specific [place] Urine Protein Urine Glucose (UA) Urine Ketones Urine Occult Blood Urine Nitrite Urine Bilirubin Urine Urobilinogen Ur Leukocyte Esterase Ur Microscopic Review Urine Culture Comments 02/23/19 17:40 WBC RBC Hgb Hct MCV MCH MCHC RDW Plt Count MPV Neut # (Auto) Lymph # (Auto) Young # (Auto) Eos # (Auto) Baso # (Auto) Absolute Nucleated RBC Nucleated RBC % Sodium Potassium Chloride Carbon Dioxide Anion Gap BUN Creatinine Estimated GFR (MDRD) Glucose Lactic Acid Calcium Magnesium Total Bilirubin AST ALT Alkaline Phosphatase Total Protein Albumin Globulin Albumin/Globulin Ratio Lipase Urine Color YELLOW Urine Clarity CLEAR Urine pH 7.5 Ur Specific [place] 1.015 Urine Protein NEGATIVE Urine Glucose (UA) NEGATIVE Urine Ketones NEGATIVE Urine Occult Blood NEGATIVE Urine Nitrite NEGATIVE Urine Bilirubin NEGATIVE Urine Urobilinogen 0.2 (NORMAL) Ur Leukocyte Esterase NEGATIVE Ur Microscopic Review NOT INDICATED Urine Culture Comments NOT INDICATED - Rads (name of study) upper abd tender Radiology: Prelim report reviewed (normal bile duct. No acute process.), See rad report abd CT Radiology: Prelim report reviewed (CT is consistent with partial bowel obstruction with transition somewhere in the mid small bowel and decompressed distally. No free fluid. No focal infections.), See rad report PD MEDICAL DECISION MAKING - ED course Complexity details: reviewed results, re-evaluated patient (She is feeling improved after some IV fluids and medications. There is still some upper abd ominal tenderness and mild distention.), considered differential, d/w patient ED course: The CT results were discussed with the patient. Typically this would be initially approached nonoperatively and the patient in discussion with her would prefer to stay here at [facility]. She does have some cysts specialists at [facility] but did not feel that she needed to be transferred there. Departure - Departure Clinical Impression: Partial bowel obstruction Qualifiers: Intestinal obstruction type: obstruction due to adhesions Qualified Code(s): K56.51 - Intestinal adhesions [bands], with partial obstruction Abdominal pain Qualifiers: Abdominal location: upper abdomen, unspecified Qualified Code(s): R10.10 - Upper abdominal pain, unspecified Nausea and vomiting Qualifiers: Vomiting type: unspecified Vomiting Intractability: non-intractable Qualified Code(s): R11.2 - Nausea with vomiting, unspecified Condition: Stable Record reviewed to determine appropriate education?: Yes
[2019-02-23] MEDS ORDERED: HYDROmorphone 1 MG/ML CARPUJECT IVP STA ×3 (15:17→19:49)
[2019-02-23] MEDS ORDERED: SODIUM CHLORIDE 0.9% 1,000 ML IV ONE ×2 (15:17→16:59)
[2019-02-23] MEDS ORDERED: ONDANSETRON 4 MG/2 ML VIAL IVP STA ×2 (15:19→18:53)
[2019-02-23] MEDS ORDERED: ACETAMINOPHEN 1,000 MG/100 ML 100 ML IV STA (15:20)
[2019-02-23 15:34] LABS: BASOPHILS % (AUTO) 0.3 %; EOSINOPHILS # (AUTO) 0.1 10^3/uL (0.0-0.7); EOSINOPHILS % (AUTO) 0.6 %; HGB - HEMOGLOBIN 13.6 g/dL (12.0-16.0); LYMPHOCYTES # (AUTO) 1.4 10^3/uL (1.5-3.5); LYMPHOCYTES % (AUTO) 10.8 %; MEAN CORPUSCULAR HEMOGLOBIN 29.8 pg (27.0-31.0); MEAN CORPUSCULAR HGB CONC 31.8 g/dL (32.0-36.0); MEAN CORPUSCULAR VOLUME 93.9 fL (81.0-99.0); MEAN PLATELET VOLUME 9.6 fL (7.9-10.8); MONOCYTES # (AUTO) 1.4 10^3/uL (0.0-1.0); MONOCYTES % (AUTO) 10.5 %; NEUTROPHILS % (AUTO) 77.5 %; PLT - PLATELET COUNT 253 10^3/uL (130-450); RED BLOOD COUNT 4.56 10^6/uL (4.20-5.40); RED CELL DISTRIBUTION WIDTH 12.5 % (12.0-15.0); WHITE BLOOD COUNT 12.9 x10^3/uL (4.8-10.8)
[2019-02-23 15:48] LABS: ALBUMIN 4.1 g/dL (3.2-5.5); ALBUMIN/GLOBULIN RATIO 1.4 (1.0-2.2); BILIRUBIN,TOTAL 0.8 mg/dL (0.2-1.0); CALCIUM 9.9 mg/dL (8.5-10.3); CREATININE 1.1 mg/dL (0.4-1.0); MAGNESIUM 2.1 mg/dL (1.7-2.8)
--- NOTE | 2019-02-23 16:43 | Ultrasound Report ---
Reason: upper abd pain; post CCY; eval CBD Procedure Date: 02/23/2019 Accession Number: [id number] / [id number] Procedure: US - Abdomen Limited CPT Code: Final Report FULL RESULT: EXAM: ABDOMEN ULTRASOUND LIMITED, RIGHT UPPER QUADRANT EXAM DATE: 02/23/2019 04:09 PM. CLINICAL HISTORY: Upper abdominal pain; post CCY (cholecystectomy; evaluate common bile duct. COMPARISON: ABDOMEN LIMITED 08/08/2018 10:27 AM. TECHNIQUE: Real-time scanning was performed with static images obtained. FINDINGS: Liver: Liver is mildly prominent and increased in echogenicity. The liver is 16.9 cm. Main portal vein flow: Hepatopetal. Gallbladder: Gallbladder has been removed. Biliary System: CBD measures 6.0 mm. Right kidney is 12 cm in length and shows several cysts, largest is about 2.1 cm. Other: None. IMPRESSION: 1. Prominent likely fatty liver. No focal masses or nodules. 2. Gallbladder has been removed. 3. Biliary tree, right kidney appears unremarkable. RADIA
[2019-02-23] MEDS ORDERED: KETOROLAC 15 MG/ML VIAL IVP STA (17:02)
[2019-02-23] MEDS ORDERED: IOVERSOL 320 100 ML VIAL IVP ONE ×2 (17:14→17:43)
[2019-02-23 17:54] LABS: BILIRUBIN,URINE NEGATIVE (NEGATIVE); GLUCOSE, URINE (UA) NEGATIVE (NEGATIVE); KETONES,URINE (UA) NEGATIVE (NEGATIVE); LEUKOCYTE ESTERASE, URINE NEGATIVE (NEGATIVE); NITRITE,URINE NEGATIVE (NEGATIVE); OCCULT BLOOD,URINE NEGATIVE (NEGATIVE); PH,URINE 7.5 PH (5.0-7.5); PROTEIN,URINE NEGATIVE (NEGATIVE); UROBILINOGEN,URINE 0.2 (NORMAL) E.U./dL (NORMAL)
[2019-02-23 17:55] LABS: CLARITY,URINE CLEAR (CLEAR)
--- NOTE | 2019-02-23 18:12 | CT Report ---
Reason: upper abd pain and vomiting Procedure Date: 02/23/2019 Accession Number: [id number] / [id number] Procedure: CT - Abdomen/Pelvis W CPT Code: Final Report FULL RESULT: EXAM: CT ABDOMEN AND PELVIS EXAM DATE: 02/23/2019 05:41 PM. CLINICAL HISTORY: Upper abd pain and vomiting. COMPARISONS: None. TECHNIQUE: Routine helical CT imaging was performed through the abdomen and pelvis. IV contrast: OPTI 320 100ML. Enteric contrast: No. Reconstructions: Coronal and sagittal. In accordance with CT protocol optimization, one or more of the following dose reduction techniques were utilized for this exam: automated exposure control, adjustment of mA and/or KV based on patient size, or use of iterative reconstructive technique. FINDINGS: Lung Bases: Unremarkable. Liver: There is steatosis of the liver. Liver is normal in size. Gallbladder/Bile Ducts: The gallbladder is surgically absent. Spleen: Normal. Pancreas: Normal. Adrenal Glands: Normal. Kidneys: There is a 25 mm cyst in the upper pole of the right kidney. No kidney stones or hydronephrosis. Peritoneal Cavity/Bowel: There is diastases of the rectus sheath. There is anterior bulging of the fascia. The defect measures 76 x 61 mm in transverse diameter. Bowel does not herniate completely through the defect. The stomach is fluid-filled and dilated. The duodenum and jejunum is fluid-filled and dilated. The small bowel loops measure up to 39 mm in diameter. There is fecalization of small bowel loop in the left mid abdomen on series 3 image 43. The distal small bowel is decompressed. No free fluid or free air. No abscess. The appendix is well visualized and normal. Pelvic Organs: There is a lobulated mass in the left fundus of the uterus measuring 25 mm in diameter which is most likely a fibroid. The ovaries are normal in size. The urinary bladder is only partially fluid-filled and otherwise unremarkable. Vasculature: Abdominal aorta is normal in caliber. Bones: There is moderate disk height loss at L3-L4. Other: None. IMPRESSION: 1. Findings consistent with a partial mid small bowel obstruction. Fecalization of small bowel contents proximal to the obstruction. There is no focal defined transition zone. 2. There is a large broad-based midline mid abdominal ventral hernia, containing fat but does not appear to represent source of obstruction. 3. No abnormal fluid collection. 4. Steatosis of the liver. RADIA
[2019-02-23] MEDS ORDERED: FAMOTIDINE 20 MG/2 ML VIAL IVP STA (18:54)
[2019-02-23] MEDS ORDERED: SODIUM CHLORIDE FLUSH 0.9% 10 ML SYRINGE IVP PRN (20:14)
--- NOTE | 2019-02-23 20:22 | HISTORY & PHYSICAL EXAMINATION ---
Chief Complaint - Chief Complaint Chief Complaint: abd pain, nausea and vomiting History of Present Illness - Admitted From Admitted From:: [facility] - History Obtained From Records Reviewed: yes History obtained from: patient - History of Present Illness HPI Comment/Other: Patient is a 53 y/o female with extensive comorbidities who presented to the ED via EMS with severe sharp upper abdominal pain which started around 11 am. She took 2 doses of gasX but her pain worsened. She had slight improvement after having a loose bowel movement. She tried to go to sleep but the pain returned so her called EMS. In the ED work up included a CT of the abd/pelvis which showed a partial mid small bowel obstruction. A non-obstructing large broad-ba sed midline mid abdominal ventral hernia containing fat was also noted. As a result she was presented for admission. She denied chest pain, dyspnea, fever or chills. She was nauseous but no vomiting. Of note, she had a cholecystectomy in August 2018. It was complicated by a perforated bowel for which she was transferred to [facility]. However this was managed conservatively over there. History - Past Medical History Cardiovascular: reports: High cholesterol, Angina, Arrhythmia (persistent sinus tachycardia) Respiratory: reports: Asthma Neuro: reports: Migraines GI: reports: Other (Diverticulosis, Hx of Peritonitis) Psych: reports: Depression Musculoskeletal: reports: Osteoarthritis, Fibromyalgia, Chronic back pain, Other (lupus) Derm: reports: None, Other (lupus) MRSA Hx?: No - Past Surgical History General: reports: Cholecystectomy, Bowel surgery /ASSOCIATE ACCOUNT DIRECTOR: reports: section, Breast reduction (laparoscopic ASSOCIATE ACCOUNT DIRECTOR), Other (Uterine fibriod resection, ovarian cyst, mesh placement) HEENT: reports: Tonsil/Adenoidectomy - Family & Social History Family History Comment/Other: mother: [place] with stents placed, atrial fibrillation, Dementia, lupus, fibromyalgia, bowel perforation. father: recurrent kidney stones, quadraplegic s/p MVA, CABG X 3. sister 1: lupus, breast cancer. sister 2-4: fibromyalgia, RA. brother: bowel perforation Social History Notes: Lives at home with her . She quit smoking in 1988. Smoked 2ppd X15 years prior. Rare alcohol consumption. No illicit drug use. - POLST Patient has POLST: No POLST Status: Full Code Meds/Allgy - Home Medications Home Medications: Ambulatory Orders Medication Instructions Recorded Confirmed Calcium Carbonate [Tums (Calcium 1,000 mg PO DAILY 03/24/17 02/23/19 Carbonate 500mg)] Cholecalciferol (Vitamin D3) 2,000 units PO DAILY 03/24/17 02/23/19 [Vitamin D3] Cyanocobalamin (Vitamin B-12) 50 mcg PO DAILY 03/24/17 02/23/19 [Vitamin B-12 (100mcg tab)] Fluticasone 110 Mcg [Flovent] 1 puffs INH BID 03/24/17 02/23/19 Fluticasone [Flonase] 1 spray SHAYY BID PRN 03/24/17 02/23/19 Levalbuterol Tartrate [Xopenex Hfa] 1 puffs INH Q4H PRN 03/24/17 02/23/19 Levalbuterol [Xopenex] 1.25 mg INH Q4H PRN 03/24/17 02/23/19 Metoprolol Succinate 25 mg PO QID 03/24/17 02/23/19 Pnv,Calcium 72/Iron/Folic Acid 1 tab PO DAILY 03/24/17 02/23/19 [Preplus Ca-Fe 27 mg-FA 1 mg Tb] Potassium Chloride 40 meq PO DAILY 03/24/17 02/23/19 Prednisone 5 mg PO DAILY 03/24/17 02/23/19 Prochlorperazine Maleate 10 mg PO Q8H PRN 03/24/17 02/23/19 Rosuvastatin Calcium [Crestor] 10 mg PO QPM 03/24/17 02/23/19 Torsemide 20 mg PO DAILY 03/24/17 02/23/19 methocarbamoL [Methocarbamol] 500 mg PO QID PRN 03/24/17 02/23/19 mycophenolate mofetiL 1,500 mg PO BID 03/24/17 02/23/19 [Mycophenolate Mofetil] Naproxen 500 mg PO BID PRN #30 tablet 06/07/17 02/23/19 Hydrocodone/Acetaminophen 1 tab PO QID PRN 08/08/18 02/23/19 [Hydrocodone-Acetamin 10-325 mg] Nortriptyline HCl 75 mg PO QPM 08/10/18 02/23/19 Venlafaxine HCl 150 mg PO BID 08/10/18 02/23/19 Cetirizine [ZyrTEC] 10 mg PO DAILY 02/23/19 02/23/19 Docusate Sodium 250Mg Capsule 250 mg PO DAILY 02/23/19 02/23/19 [Colace 250Mg Capsule] Famotidine 20 mg PO BID 02/23/19 02/23/19 Pregabalin [Lyrica] 75 tab PO Q8HR 02/23/19 02/23/19 - Allergies Allergies/Adverse Reactions: Allergies Allergy/AdvReac Type Severity Reaction Status Date / Time adhesive tape Allergy Unknown Verified 02/23/19 19:23 albuterol Allergy Unknown Verified 02/23/19 19:23 leflunomide [From Arava] Allergy Hives Verified 02/23/19 19:23 levocetirizine Allergy Cramps Verified 02/23/19 19:23 levofloxacin [From Levaquin] Allergy Unknown Verified 02/23/19 19:23 minocycline Allergy Unknown Verified 02/23/19 19:23 epinephrine AdvReac Mild Unknown Verified 02/23/19 19:23 atorvastatin AdvReac Cramps Verified 02/23/19 19:23 Review of Systems - Constitutional Constitutional: denies: Fatigue, Fever, Chills, Diaphoresis, Night sweats - Eyes Eyes: denies: Pain, Dipolpia - Ears, Nose & Throat Ears, Nose & Throat: denies: Hearing loss, Vertigo, Sore throat - Cardiovascular Cariovascular: denies: Irregular heart rate, Palpitations, Chest pain, Edema, Lightheadedness, Syncope, Exertional dyspnea, Decr. exercise tolerance - Respiratory Respiratory: denies: Cough, Wheezing, SOB at rest, SOB with exertion - Gastrointestinal Gastrointestinal: reports: Abdominal pain, Nausea. denies: Abdominal distention, Diarrhea - Genitourinary Genitourinary: denies: Dysuria, Frequency, Urgency, Hematuria - Musculoskeletal Musculoskeletal: denies: Muscle pain, Back pain, Muscle aches - Integumentary Integumentary: denies: Rash, Pruritis - Neurological Neurological: denies: General weakness, Headache, Dizziness - Psychiatric Psychiatric: reports: Depression. denies: Anxiety - Endocrine Endocrine: denies: Polyuria, Polydypsia - Hematologic/Lymphatic Hematologic/Lymphatic: denies: Anemia, Bruising, Petechiae Prior Level of Functionality: Patient is independent of activity of daily living. She gets around the house with a walker. When she goes out she uses an electric scooter. Exam - Vital Signs Vital Signs: Vital Signs x48h Temp Pulse Resp BP Pulse Ox 02/23/19 19:10 36.8 C 77 16 124/65 98 02/23/19 18:57 79 18 117/65 100 02/23/19 17:48 77 18 121/64 98 02/23/19 15:35 62 18 135/74 H 91 L 02/23/19 14:39 36.6 C 73 18 133/72 H 100 - Physical Exam General Appearance: positive: Alert, Moderate distress, Severe distress Eyes Bilateral: positive: Normal inspection, PERRL, EOMI ENT: positive: ENT inspection nml, No signs of dehydration Neck: positive: Nml inspection, No JVD, Trachea midline Respiratory: positive: Chest non-tender, No respiratory distress, Breath sounds nml. negative: Wheezes, Rales, Rhonchi Cardiovascular: positive: Regular rate & rhythm Abdomen: positive: Non-tender. negative: Guarding, Rebound Back: positive: Nml inspection Skin: positive: Color nml, No rash, Warm, Dry Extremities: positive: Non-tender, Nml appearance, No pedal edema Neurologic/Psychiatric: positive: Oriented x3, Mood/affect nml Conclusion/Plan - Problem List (1) Partial bowel obstruction Conclusion/Plan: NPO. IV hydration with normal saline General Surgery (Dr Alegre) was consulted and is agreeable to see the patient. Qualifiers: Intestinal obstruction type: obstruction due to adhesions Qualified Code(s): K56.51 - Intestinal adhesions [bands], with partial obstruction (2) Lupus Conclusion/Plan: On mycophenolate and prednisone. Will continue once verified (3) Tachycardia Conclusion/Plan: Currently normal sinus rhythm On metoprolol (4) Hyperlipidemia Conclusion/Plan: On rosuvastatin. Will order formulary equivalent medication (5) Fibromyalgia Conclusion/Plan: On lyrica and nortriptyline (6) Depression Conclusion/Plan: On venlafaxine - Lab Results Fish Bones: 02/24/19 04:35 02/24/19 04:35 Core Measures - Anticipated LOS I expect patient to be DC'd or transferred within 96 hours.: Yes - DVT/VTE - Prophylaxis VTE/DVT Device ordered at admit?: Yes VTE/DVT Prophylaxis med ordered at admit?: Yes
--- NOTE | 2019-02-23 20:23 | ED Physician Documentation ---
ED Addendum - Addendum Addendum: 02/23/19 20:[address] Crowder, briefly this is a woman with a remote postoperative partial small bowel obstruction, previously successfully treated conservatively without surgery. We were pending surgical consultation at signout and I was able to speak with Dr. Alegre who will see her and updated Dr. Alcantar.
[2019-02-23] MEDS: HEPARIN 5,000 UNIT/ML VIAL SUBQ SCH (21:26)
[2019-02-23] MEDS: SODIUM CHLORIDE 0.9% 1,000 ML IV SCH (21:39)
[2019-02-23] MEDS ORDERED: HYDROmorphone 0.5 MG/0.5 ML SYRINGE IVP PRN (21:40)
[2019-02-24] MEDS: SODIUM CHLORIDE FLUSH 0.9% 10 ML SYRINGE IVP SCH ×3 (00:25→16:34)
[2019-02-24] MEDS ORDERED: PROCHLORPERAZINE 10 MG/2 ML VIAL IVP PRN (00:50)
[2019-02-24] MEDS: ONDANSETRON 4 MG/2 ML VIAL IVP PRN ×3 (00:53→14:28)
[2019-02-24] MEDS ORDERED: HYDROmorphone 1 MG/ML CARPUJECT ONE (00:58)
[2019-02-24] MEDS: HYDROmorphone 1 MG/ML CARPUJECT IVP PRN ×2 (01:06→07:44)
[2019-02-24] MEDS: METOPROLOL SUCCINATE 50 MG TABLET PO SCH ×2 (01:10→10:08)
[2019-02-24 05:11] LABS: BASOPHILS % (AUTO) 0.4 %; EOSINOPHILS # (AUTO) 0.1 10^3/uL (0.0-0.7); HGB - HEMOGLOBIN 11.9 g/dL (12.0-16.0); LYMPHOCYTES # (AUTO) 2.7 10^3/uL (1.5-3.5); LYMPHOCYTES % (AUTO) 37.7 %; MEAN CORPUSCULAR HEMOGLOBIN 29.8 pg (27.0-31.0); MEAN CORPUSCULAR HGB CONC 30.5 g/dL (32.0-36.0); MEAN CORPUSCULAR VOLUME 97.5 fL (81.0-99.0); MEAN PLATELET VOLUME 9.7 fL (7.9-10.8); MONOCYTES # (AUTO) 0.8 10^3/uL (0.0-1.0); MONOCYTES % (AUTO) 10.8 %; NEUTROPHILS # (AUTO) 3.4 10^3/uL (1.5-6.6); NEUTROPHILS % (AUTO) 48.8 %; PLT - PLATELET COUNT 239 10^3/uL (130-450); RED CELL DISTRIBUTION WIDTH 12.7 % (12.0-15.0)
[2019-02-24] MEDS: SODIUM CHLORIDE 0.9% 1,000 ML IV SCH (05:19)
[2019-02-24 05:31] LABS: CALCIUM 8.5 mg/dL (8.5-10.3)
[2019-02-24] MEDS ORDERED: PANTOPRAZOLE 40 MG VIAL IVP SCH (07:00)
[2019-02-24] MEDS ORDERED: LEVALBUTEROL 1.25 MG/3 ML NEB INH PRN (08:28)
[2019-02-24] MEDS ORDERED: FLUTICASONE NASAL SPRAY NAS PRN (08:28)
[2019-02-24] MEDS ORDERED: LEVALBUTEROL TARTRATE INH PRN (08:28)
[2019-02-24] MEDS ORDERED: BUDESONIDE 0.5 MG/2 ML NEB INH SCH ×2 (09:00→19:00)
[2019-02-24] MEDS ORDERED: FLU VACC QS2019-20(6MOS UP)/PF 60 MCG/0.5 ML SYRINGE IM ONE (09:00)
[2019-02-24] MEDS: HEPARIN 5,000 UNIT/ML VIAL SUBQ SCH (10:11)
[2019-02-24 10:40] LABS: MUDS CUTOFF CONCENTRATIONS CUTOFF CONC BELOW:
[2019-02-24 10:55] LABS: OPIATE SCREEN, URINE POSITIVE (NEGATIVE)
[2019-02-24 10:56] LABS: AMPHETAMINE SCREEN,URINE NEGATIVE (NEGATIVE); BENZODIAZEPINES SCREEN, URINE NEGATIVE (NEGATIVE); COCAINE SCREEN URINE NEGATIVE (NEGATIVE); METHADONE SCREEN, URINE NEGATIVE (NEGATIVE); METHAMPHETAMINES SCREEN, URINE NEGATIVE (NEGATIVE); OXYCODONE SCREEN, URINE NEGATIVE (NEGATIVE); PROPOXYPHENE SCREEN, URINE NEGATIVE (NEGATIVE); TRICYCLIC ANTIDEPRESSANT,URINE POSITIVE (NEGATIVE)
[2019-02-24] MEDS ORDERED: VENLAFAXINE 37.5 MG TABLET PO SCH (13:00)
[2019-02-24] MEDS ORDERED: predniSONE 5 MG TABLET PO SCH (13:00)
[2019-02-24] MEDS ORDERED: DEXTROSE 5%-0.9% NACL 1,000 ML IV SCH (13:00)
[2019-02-24] MEDS: METOPROLOL SUCCINATE 25 MG TABLET PO SCH ×2 (13:01→17:29)
[2019-02-24] MEDS ORDERED: PREGABALIN 25 MG CAPSULE PO SCH (14:00)
--- NOTE | 2019-02-24 14:43 | XRAY Report ---
Reason: SBO, progress with bowel movement Procedure Date: 02/24/2019 Accession Number: [id number] / [id number] Procedure: XR - Abdomen 2 View X-Ray CPT Code: 04959 Final Report FULL RESULT: EXAM: ABDOMEN RADIOGRAPHY EXAM DATE: 02/24/2019 01:38 PM. CLINICAL HISTORY: Small bowel obstruction, follow-up. COMPARISON: ABDOMEN/PELVIS W/ 02/23/2019 5:33 PM. TECHNIQUE: 2 views. FINDINGS: Lung Bases: A potential small left base pleural effusion has developed. The heart appears mildly enlarged. Bowel Gas Pattern: Within normal limits. No dilated loops or abnormal fluid levels. Free Air: None. Other: Cholecystectomy clips present. IMPRESSION: 1. Normal bowel gas pattern without evidence of obstruction or constipation. 2. Possible small new left base pleural effusion. RADIA
[2019-02-24] MEDS ORDERED: HYDROcod/ACETAM 10 MG/325 MG TABLET PO PRN (15:15)
--- NOTE | 2019-02-24 15:36 | Discharge Plan ---
Discharge Plan Problem Reviewed?: Yes Disposition: Home, Self Care Condition: Stable Prescriptions: Ondansetron HCl [Zofran] 4 mg PO Q6H PRN #15 tablet PRN Reason: Nausea / Vomiting Diet: Regular Activity Restrictions: Activity as Tolerated Shower Restrictions: No (fall precaution) Instruction Topics: Ondansetron tablets, Obstruction Sm Bowel Health Concerns: small bowel obstruction Plan of Treatment: your small bowel obstruction is resolved now. you have bowel movement and tolerate the regular diet, Xray of abdomen reveals you have normal bowel pattern without obstruction. advise you keep hydration and active, eat a diet high in fiber and low in fat and cholesterol. Care Goals: resolve your small bowel obstruction Assessment: discussed with you about the care plan, you understood and agreed. Additional Instructions or Follow Up instructions: you may followup your PCP in one to two weeks. Should your symptoms return or worsen, you may present ER or call 911 for help. No Smoking: If you smoke, Please STOP! Call for help. Follow-up with: Neida Lin MD [Primary Care Provider] -
--- NOTE | 2019-02-24 15:45 | DISCHARGE SUMMARY ---
"Discharge Summary Admit Date: 02/23/19 Discharge Date: 02/24/19 Discharging Provider: Rodolfo Huffman Primary Care Provider: Neida Penaloza Condition at Discharge: Stable Discharge Disposition: Home, Self Care Discharge Facility Name: home - DIAGNOSES Admission Diagnoses: (1) Partial bowel obstruction (2) Lupus (3) Tachycardia (4) Hyperlipidemia (5) Fibromyalgia (6) Depression Discharge Diagnoses with Status of Each Condition: (1) Partial bowel obstruction resolved. Xray reveals normal bowel pattern without obstruction. pt has twice bowel movement and tolerate the regular diet. pt denies abdominal pain. (2) Lupus stable (3) hx of Tachycardia stable/resolved (4) Hyperlipidemia stable (5) Fibromyalgia stable (6) Depression stable - HPI History of Present Illness: Patient is a 53 y/o female with extensive comorbidities who presented to the ED via EMS with severe sharp upper abdominal pain which started around 11 am. She took 2 doses of gasX but her pain worsened. She had slight improvement after having a loose bowel movement. She tried to go to sleep but the pain returned so her called EMS. In the ED work up included a CT of the abd/pelvis which showed a partial mid small bowel obstruction. A non-obstructing large broad- based midline mid abdominal ventral hernia containing fat was also noted. As a result she was presented for admission. She denied chest pain, dyspnea, fever or chills. She was nauseous but no vomiting. Of note, she had a cholecystectomy in August 2018. It was complicated by a perforated bowel for which she was transferred to [facility]. However this was managed conservatively over there. - CONSULTS | PROCEDURES Consultations: Dr. Kamila Alegre Procedures: no procedure - HOSPITAL COURSE Hospital Course: pt was admitted for abdominal pain. pt was found to have partial small bowel obstruction in CT of abdomen. pt was treated by bowel rest and IVF, and encourage pt ambulate. Then pt had two bowel movement, Xray of abdomen reveals normal bowel pattern without obstruction. pt tolerate regular diet without pain. The detail hospital course is as the below: (1) Partial bowel obstruction resolved. Xray reveals normal bowel pattern without obstruction. pt has twice bowel movement and tolerate the regular diet. pt denies abdominal pain. (2) Lupus stable (3) hx of Tachycardia stable/resolved (4) Hyperlipidemia stable (5) Fibromyalgia stable (6) Depression stable - ALLERGIES Allergies/Adverse Reactions: Allergies Allergy/AdvReac Type Severity Reaction Status Date / Time adhesive tape Allergy Unknown Verified 02/23/19 19:23 albuterol Allergy Unknown Verified 02/23/19 19:23 leflunomide [From Arava] Allergy Hives Verified 02/23/19 19:23 levocetirizine Allergy Cramps Verified 02/23/19 19:23 levofloxacin [From Levaquin] Allergy Unknown Verified 02/23/19 19:23 minocycline Allergy Unknown Verified 02/23/19 19:23 epinephrine AdvReac Mild Unknown Verified 02/23/19 19:23 atorvastatin AdvReac Cramps Verified 02/23/19 19:23 - MEDICATIONS Home Medications: Ambulatory Orders Medication Instructions Recorded Confirmed Calcium Carbonate [Tums (Calcium 1,000 mg PO DAILY 03/24/17 02/23/19 Carbonate 500mg)] Cholecalciferol (Vitamin D3) 2,000 units PO DAILY 03/24/17 02/23/19 [Vitamin D3] Cyanocobalamin (Vitamin B-12) 50 mcg PO DAILY 03/24/17 02/23/19 [Vitamin B-12 (100mcg tab)] Fluticasone 110 Mcg [Flovent] 1 puffs INH BID 03/24/17 02/23/19 Fluticasone [Flonase] 1 spray SHAYY BID PRN 03/24/17 02/23/19 Levalbuterol Tartrate [Xopenex Hfa] 1 puffs INH Q4H PRN 03/24/17 02/23/19 Levalbuterol [Xopenex] 1.25 mg INH Q4H PRN 03/24/17 02/23/19 Metoprolol Succinate 25 mg PO QID 03/24/17 02/23/19 Pnv,Calcium 72/Iron/Folic Acid 1 tab PO DAILY 03/24/17 02/23/19 [Preplus Ca-Fe 27 mg-FA 1 mg Tb] Potassium Chloride 40 meq PO DAILY 03/24/17 02/23/19 Prednisone 5 mg PO DAILY 03/24/17 02/23/19 Prochlorperazine Maleate 10 mg PO Q8H PRN 03/24/17 02/23/19 Rosuvastatin Calcium [Crestor] 10 mg PO QPM 03/24/17 02/23/19 Torsemide 20 mg PO DAILY 03/24/17 02/23/19 methocarbamoL [Methocarbamol] 500 mg PO QID PRN 03/24/17 02/23/19 mycophenolate mofetiL 1,500 mg PO BID 03/24/17 02/23/19 [Mycophenolate Mofetil] Naproxen 500 mg PO BID PRN #30 tablet 06/07/17 02/23/19 Hydrocodone/Acetaminophen 1 tab PO QID PRN 08/08/18 02/23/19 [Hydrocodone-Acetamin 10-325 mg] Nortriptyline HCl 75 mg PO QPM 08/10/18 02/23/19 Venlafaxine HCl 150 mg PO BID 08/10/18 02/23/19 Cetirizine [ZyrTEC] 10 mg PO DAILY 02/23/19 02/23/19 Docusate Sodium 250Mg Capsule 250 mg PO DAILY 02/23/19 02/23/19 [Colace 250Mg Capsule] Famotidine 20 mg PO BID 02/23/19 02/23/19 Pregabalin [Lyrica] 75 tab PO Q8HR 02/23/19 02/23/19 Ondansetron HCl [Zofran] 4 mg PO Q6H PRN #15 tablet 02/24/19 - PHYSICAL EXAM AT DISCHARGE General Appearance: positive: No acute distress, Alert. negative: Lethargic Eyes Bilateral: positive: Normal inspection, PERRL, EOMI, No lid inflammation ENT: positive: ENT inspection nml, Pharynx nml, No signs of dehydration. negati ve: Purulent nasal drainage Neck: positive: Nml inspection, Thyroid nml, No JVD, Trachea midline. negative: Thyromegaly, Lymphadenopathy (R), Lymphadenopathy (L), Stiff neck, Tracheal deviation Respiratory: positive: Chest non-tender, No respiratory distress, Breath sounds nml. negative: Wheezes, Rales, Rhonchi Cardiovascular: positive: Regular rate & rhythm, No murmur, No gallop. negative: Irregularly irregular, Extrasystoles, Tachycardia, Bradycardia, JVD present, Systolic murmur, Diastolic murmur Peripheral Pulses: positive: 2+ Abdomen: positive: Non-tender, No organomegaly, Nml bowel sounds, No distention. negative: Tenderness, Guarding, Rebound Back: positive: Nml inspection. negative: CVA tenderness (R), CVA tenderness (L) Skin: positive: Color nml, No rash, Warm, Dry. negative: Cyanosis, Diaphoresis, Pallor Extremities: positive: Non-tender, Full ROM, Nml appearance. negative: Calf tenderness, Shayan's sign/cords Neurologic/Psychiatric: positive: Oriented x3, Motor nml, Sensation nml, Mood/affect nml. negative: Weakness, Sensory loss, Facial droop, Slurred/abnml speech - LABS Result Diagrams: 02/24/19 04:35 02/24/19 04:35 - FOLLOW UP Follow Up: your small bowel obstruction is resolved now. you have bowel movement and tolerate the regular diet, Xray of abdomen reveals you have normal bowel pattern without obstruction. advise you keep hydration and active, eat a diet high in fiber and low in fat and cholesterol. you may followup your PCP in one to two weeks. Should your symptoms return or worsen, you may present ER or call 911 for help. - TIME SPENT Time Spent in Discharge (Minutes): 40"
--- NOTE | 2019-02-24 17:08 | PHARMACY PROGRESS NOTE ---
- Best Possible Medication History Admit Date and Time: 02/23/192013 Processed by: Nursing Medication History completed: Yes Patient Interview: Completed Secondary Source(s): Previous admit records As the person ultimately responsible for medication therapy, providers are able to order a medication from an existing home medication list in [facility] via the "Reconcile Routine" prior to Confirmation of that medication by direct support staff member. Such practice is discouraged except when the physician, in their clinical judgment, deems that a medical need exists for a medication without regard to previous use.
[2019-02-24 20:04] VITALS: BP 114/66
[2019-02-24] MEDS ORDERED: NORTRIPTYLINE 25 MG CAPSULE PO SCH (21:00)
== END 2019-02-24 20:30 | disposition home or self-care (01) | DRG 390 ==
LOC: EDUNIT# → ED 14:31 → MS2 20:14
PROVIDERS: ADMIT Internal Medicine; ATTEND Nurse Practitioner Gerontology
DX: K56.51 Intestinal adhesions [bands], with partial obstruction (principal); E66.9 Obesity, unspecified; K43.9 Ventral hernia without obstruction or gangrene; R00.0 Tachycardia, unspecified; E78.5 Hyperlipidemia, unspecified; Z68.37 Body mass index [BMI] 37.0-37.9, adult; M79.7 Fibromyalgia; F32.9 Major depressive disorder, single episode, unspecified; J45.909 Unspecified asthma, uncomplicated; Z90.49 Acquired absence of other specified parts of digestive tract; Z87.19 Personal history of other diseases of the digestive system; Z87.891 Personal history of nicotine dependence; Z79.51 Long term (current) use of inhaled steroids; Z79.899 Other long term (current) drug therapy; Z79.52 Long term (current) use of systemic steroids
CPT/HCPCS: 36415; 74019; 74177; 76705; 80048; 80053; 81003; 83605; 83690; 83735; 85025; 90686; 96361; 96365; 96375; 96376; 99284; 99285; A9270; J0131; J1170; J7512; Q9967; 80306; 81001; 87086

== ENCOUNTER 2019-09-06 08:10 | Outpatient (CLI) | payer MEDICARE, MEDICAID | END 2019-09-06 08:11 | disposition home or self-care (01) | LOC: COV 08:10 | PROVIDERS: ATTEND Family Medicine | DX: R05 Cough (principal); R06.02 Shortness of breath; M79.10 Myalgia, unspecified site; R53.83 Other fatigue; J02.9 Acute pharyngitis, unspecified; R09.81 Nasal congestion; R11.2 Nausea with vomiting, unspecified; Z20.828 Contact with and (suspected) exposure to other viral communicable diseases | CPT/HCPCS: 36415; 80053; 80061; 83036; 83721; 85025 ==

== ENCOUNTER 2020-01-25 14:00 | Outpatient (CLI) | payer MEDICARE | END 2020-01-25 23:59 | disposition home or self-care (01) | LOC: COV 14:00 | PROVIDERS: ATTEND Family Medicine | DX: R05 Cough (principal); Z20.828 Contact with and (suspected) exposure to other viral communicable diseases; R06.02 Shortness of breath; M79.10 Myalgia, unspecified site; J02.9 Acute pharyngitis, unspecified; R43.9 Unspecified disturbances of smell and taste; R09.81 Nasal congestion ==

== ENCOUNTER 2020-07-29 12:30 | Outpatient (CLI) | payer MEDICARE ==
[2020-07-29 12:43] LABS: BASOPHILS # (AUTO) 0.1 10^3/uL (0.0-0.1); BASOPHILS % (AUTO) 1.1 %; EOSINOPHILS # (AUTO) 0.5 10^3/uL (0.0-0.7); EOSINOPHILS % (AUTO) 7.5 %; HCT - HEMATOCRIT 42.4 % (37.0-47.0); HGB - HEMOGLOBIN 13.9 g/dL (12.0-16.0); LYMPHOCYTES # (AUTO) 2.5 10^3/uL (1.5-3.5); LYMPHOCYTES % (AUTO) 40.6 %; MEAN CORPUSCULAR HEMOGLOBIN 31.7 pg (27.0-31.0); MEAN CORPUSCULAR HGB CONC 32.8 g/dL (32.0-36.0); MEAN CORPUSCULAR VOLUME 96.8 fL (81.0-99.0); MEAN PLATELET VOLUME 9.7 fL (7.9-10.8); MONOCYTES # (AUTO) 0.6 10^3/uL (0.0-1.0); MONOCYTES % (AUTO) 9.1 %; NEUTROPHILS # (AUTO) 2.6 10^3/uL (1.5-6.6); NEUTROPHILS % (AUTO) 41.4 %; PLT - PLATELET COUNT 242 10^3/uL (130-450); RED BLOOD COUNT 4.38 10^6/uL (4.20-5.40); RED CELL DISTRIBUTION WIDTH 13.3 % (12.0-15.0); WHITE BLOOD COUNT 6.3 x10^3/uL (4.8-10.8)
[2020-07-29 13:01] LABS: ALBUMIN 3.7 g/dL (3.2-5.5); ALBUMIN/GLOBULIN RATIO 1.3 (1.0-2.2); BILIRUBIN,TOTAL 0.8 mg/dL (0.2-1.0); CREATININE 1.1 mg/dL (0.4-1.0); CRP - C-REACTIVE PROTEIN 1.1 mg/dL (0-1.0); POTASSIUM 3.7 mmol/L (3.5-5.0); TOTAL PROTEIN 6.6 g/dL (6.7-8.2)
== END 2020-07-29 12:31 | disposition home or self-care (01) ==
LOC: LAB 12:30
PROVIDERS: ATTEND Nurse Practitioner
DX: M35.9 Systemic involvement of connective tissue, unspecified (principal)
CPT/HCPCS: 36415; 80053; 85025; 85651; 86140

== ENCOUNTER 2021-06-03 15:32 | Outpatient (CLI) | payer MEDICARE ==
--- NOTE | 2021-06-03 17:51 | DEXA Report ---
PROCEDURE: Dexa Spine and/or Hip INDICATIONS: CHOCOLATE DIPPER STEROID USE TECHNIQUE: Dual energy x-ray absorptiometry (DXA) was performed on a [employer] System. Regions measur ed are the AP Spine, femoral neck, and if needed forearm. COMPARISON: None. FINDINGS: Lumbar Spine: Bone Mineral Density 1.467 g/cm/cm,T score 2.4, normal density Left Hip: Bone Mineral Density 1.114 g/cm/cm,T score 0.8, normal density Left Femoral Neck: Bone Mineral Density 1.085 g/cm/cm, T score 0.3, normal density (T score greater or equal to -1.0: NORMAL) (T score from -1.1 to -2.4: OSTEOPENIA) (T score less than or equal to -2.5 to: OSTEOPOROSIS) Impression: Normal bone mineral density. Patients with diagnosis of osteoporosis or osteopenia should have regular bone mineral density assess ment. For those eligible for Medicare, routine testing is allowed once every 2 years. Testing frequ ency can be increased for patients who have rapidly progressing disease or for those who are receivin g medical therapy to restore bone mass. Reviewed by: Brendan Winston MD on 06/03/2021 5:50 PM PDT Approved by: Brendan Winston MD on 06/03/2021 5:50 PM PDT Station ID: [id number]
--- NOTE | 2021-06-04 09:51 | XRAY Report ---
PROCEDURE: Hand 3 View BILAT INDICATIONS: INFLAMMATORY ARTHRITIS TECHNIQUE: 3 views of the hand(s) acquired. COMPARISON: None FINDINGS: Bones: No fractures or dislocations. No suspicious bony lesions. Mild bilateral polyarticular join t space narrowing with articular osteophyte formation. Juxta-articular lucencies are present involvin g multiple MTP joints as well as multiple interphalangeal joints. Soft tissues: No suspicious soft tissue calcifications. IMPRESSION: 1. Diffuse bilateral mild joint degeneration and bilateral juxta-articular lucencies suggesting subch ondral cystic change versus bony erosions. Inflammatory arthropathy cannot be excluded. Reviewed by: PANDA Young on 06/04/2021 9:49 AM PDT Approved by: Bassem Velasquez MD on 06/04/2021 9:49 AM PDT Station ID: [id number]
== END 2021-06-03 15:33 | disposition home or self-care (01) ==
LOC: DI 15:32
PROVIDERS: ATTEND Nurse Practitioner
DX: Z79.52 Long term (current) use of systemic steroids (principal); M19.042 Primary osteoarthritis, left hand; M19.041 Primary osteoarthritis, right hand

== ENCOUNTER 2021-06-03 15:42 | Outpatient (CLI) | payer MEDICARE ==
--- NOTE | 2021-06-04 09:51 | XRAY Report ---
PROCEDURE: Cervical Spine Complete INDICATIONS: INFLAMMATORY ARTHRITIS TECHNIQUE: 4 views of the cervical spine acquired. COMPARISON: None FINDINGS: Bones: No fractures or dislocations to the T1 level. Loss of the normal cervical lordosis. Multileve l disc degeneration, most notably and severe at the C6-C7 level. Moderate multilevel mid and lower ce rvical spine facet joint arthropathy and uncovertebral hypertrophy Oblique images demonstrate mild to moderate bilateral mid and lower cervical spine bony foraminal stenoses. Soft tissues: No prevertebral soft tissue swelling. IMPRESSION: Loss of lordosis and multilevel spondylosis. Reviewed by: PANDA Young on 06/04/2021 9:49 AM PDT Approved by: Bassem Velasquez MD on 06/04/2021 9:49 AM PDT Station ID: [id number]
== END 2021-06-03 15:43 | disposition home or self-care (01) ==
LOC: DI 15:42
PROVIDERS: ATTEND Nurse Practitioner
DX: M47.812 Spondylosis without myelopathy or radiculopathy, cervical region (principal); M50.323 Other cervical disc degeneration at C6-C7 level; M48.02 Spinal stenosis, cervical region; Z79.52 Long term (current) use of systemic steroids; M19.042 Primary osteoarthritis, left hand; M19.041 Primary osteoarthritis, right hand

== ENCOUNTER 2021-06-16 08:35 | Outpatient (CLI) | payer MEDICARE ==
[2021-06-16 09:09] LABS: ALBUMIN 3.6 g/dL (3.2-5.5); ALBUMIN/GLOBULIN RATIO 1.1 (1.0-2.2); ALKALINE PHOSPHATASE 52 IU/L (42-121); ALT ALANINE AMINOTRANSFERASE 46 IU/L (10-60); AST ASPARTATE AMINOTRANSFERASE 30 IU/L (10-42); BILIRUBIN,TOTAL 0.5 mg/dL (0.2-1.0); BUN - BLOOD UREA NITROGEN 12 mg/dL (6-20); CARBON DIOXIDE - CO2 28 mmol/L (21-32); CHLORIDE 99 mmol/L (101-111); CHOL/HDL RATIO 2.8 (<4.4); CHOLESTEROL 168 mg/dL; GFR - MDRD 57 (>89); GLUCOSE 100 mg/dL (70-100); HDL CHOLESTEROL 61 mg/dL; LDL CHOLESTEROL,CALCULATED 83 mg/dL; LDL/HDL RATIO 1.4 (<4.4); POTASSIUM 3.9 mmol/L (3.5-5.0); SODIUM 137 mmol/L (135-145); TOTAL PROTEIN 6.9 g/dL (6.7-8.2); TRIGLYCERIDES 118 mg/dL; VLDL CHOLESTEROL 24 mg/dL
== END 2021-06-16 08:36 | disposition home or self-care (01) ==
LOC: LAB 08:35
PROVIDERS: ATTEND Internal Medicine Cardiovascular Disease
DX: E78.5 Hyperlipidemia, unspecified (principal); Z79.52 Long term (current) use of systemic steroids
CPT/HCPCS: 36415; 80053; 80061; 82024; 82306; 82533; 83721

== ENCOUNTER 2021-12-16 15:56 | Outpatient (CLI) | payer MEDICARE ==
[2021-12-16 16:34] LABS: CREATININE 1.1 mg/dL (0.4-1.0); MAGNESIUM 2.1 mg/dL (1.7-2.8); POTASSIUM 3.8 mmol/L (3.5-5.0)
[2021-12-16 16:43] LABS: THYROID STIMULATING HORMONE 2.11 uIU/mL (0.34-5.60)
== END 2021-12-16 15:57 | disposition home or self-care (01) ==
LOC: LAB 15:56
PROVIDERS: ATTEND Internal Medicine Cardiovascular Disease
DX: R00.2 Palpitations (principal); I50.32 Chronic diastolic (congestive) heart failure
CPT/HCPCS: 36415; 80048; 83735; 83880; 84443

== ENCOUNTER 2023-10-05 14:51 | Outpatient (CLI) | payer MEDICARE | END 2023-10-05 23:59 | disposition critical access hospital (66) | LOC: EMS 14:51 | DX: S80.01XA Contusion of right knee, initial encounter (principal); M25.551 Pain in right hip; W01.0XXA Fall on same level from slipping, tripping and stumbling without subsequent striking against object, initial encounter; Y92.009 Unspecified place in unspecified non-institutional (private) residence as the place of occurrence of the external cause | CPT/HCPCS: A0425; A0427 ==

== ENCOUNTER 2023-10-05 15:08 | Emergency (ER) | payer MEDICARE, OTHER ==
--- NOTE | 2023-10-05 15:18 | ED Physician Documentation ---
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 She tripped on it and went forward hitting both knees and elbows on the ground and has mostly pain in the right knee more than anywhere else. EMS gave her 150 mcg of fentanyl with modest relief of pain. She is not able to walk or bear weight due to pain. PD PAST MEDICAL HISTORY - Past Medical History Cardiovascular: High cholesterol, Angina, Arrhythmia (persistent sinus tachycardia) Respiratory: Asthma Neuro: Migraines GI: Other (Diverticulosis, Hx of Peritonitis) Psych: Depression Musculoskeletal: Osteoarthritis, Fibromyalgia, Chronic back pain, Other (lupus) Derm: None, Other (lupus) - Past Surgical History Past Surgical History: Yes General: Cholecystectomy, Bowel surgery /[employer]: section, Breast reduction (laparoscopic [employer]), Other (Uterine fibriod resection, ovarian cyst, mesh placement) HEENT: Tonsil/Adenoidectomy - Present Medications Home Medications: Ambulatory Orders Medication Instructions Recorded Confirmed Calcium Carbonate [Tums (Calcium 1,000 mg PO DAILY 03/24/17 10/05/23 Carbonate 500mg)] Cholecalciferol (Vitamin D3) 2,000 units PO DAILY 03/24/17 10/05/23 [Vitamin D3] Cyanocobalamin (Vitamin B-12) 50 mcg PO DAILY 03/24/17 10/05/23 [Vitamin B-12 (100mcg tab)] Pnv,Calcium 72/Iron/Folic Acid 1 tab PO DAILY 03/24/17 10/05/23 [Preplus Ca-Fe 27 mg-FA 1 mg Tb] Potassium Chloride 40 meq PO DAILY 03/24/17 10/05/23 Prochlorperazine Maleate 10 mg PO Q8H PRN 03/24/17 10/05/23 Rosuvastatin Calcium [Crestor] 10 mg PO QPM 03/24/17 10/05/23 Torsemide 10 mg PO DAILY 03/24/17 10/05/23 predniSONE [Prednisone] 5 mg PO DAILY 03/24/17 10/05/23 Nortriptyline HCl 75 mg PO QPM 08/10/18 10/05/23 Cetirizine [ZyrTEC] 10 mg PO DAILY 02/23/19 10/05/23 Docusate Sodium 250Mg Capsule 250 mg PO DAILY 02/23/19 10/05/23 [Colace 250Mg Capsule] Pregabalin [Lyrica] 75 tab PO Q8HR 02/23/19 10/05/23 ondansetron HCL [Zofran] 4 mg PO Q6H PRN #15 tablet 02/24/19 10/05/23 Hydrocodone/Acetaminophen 1 tab PO Q4HR PRN 10/05/23 10/05/23 [Hydrocodone-Acetamin 10-325 mg] Methotrexate Sodium/Pf 25 mg SUBQ MAINTENANCE.IV 10/05/23 10/05/23 [Methotrexate 50 mg/2 ml Vial] Metoprolol Succinate [Toprol Xl] 25 mg PO TID 10/05/23 10/05/23 PARoxetine HCL [Paxil] 40 mg PO DAILY 10/05/23 10/05/23 Prochlorperazine Maleate 10 mg PO DAILY PRN 10/05/23 10/05/23 [Compazine] Tolterodine Tartrate [Tolterodine 4 mg PO DAILY 10/05/23 10/05/23 Tartrate ER] - Allergies Allergies/Adverse Reactions: Allergies Allergy/AdvReac Type Severity Reaction Status Date / Time adhesive tape Allergy Unknown Verified 10/05/23 15:29 albuterol Allergy Unknown Verified 10/05/23 15:29 leflunomide [From Arava] Allergy Hives Verified 10/05/23 15:29 levocetirizine Allergy Cramps Verified 10/05/23 15:29 levofloxacin [From Levaquin] Allergy Unknown Verified 10/05/23 15:29 minocycline Allergy Unknown Verified 10/05/23 15:29 epinephrine AdvReac Mild Unknown Verified 10/05/23 15:29 atorvastatin AdvReac Cramps Verified 10/05/23 15:29 - Social History Does the pt smoke?: No Smoking Status: Former smoker Does the pt drink ETOH?: Yes Does the pt have substance abuse?: No - Immunizations Immunizations are current?: Yes - POLST Patient has POLST: No POLST Status: Full Code PD ED PE NORMAL - Vitals Vital signs reviewed: Yes - General General: Alert and oriented X 3, No acute distress - HEENT HEENT: PERRL, EOMI - Neck Neck: Supple, no meningeal sign, No bony TTP - Extremities Extremities: Other (Right elbow has an abrasion on it, it is nontender with full range of motion. The right knee is quite tender throughout and bruised especially medially. Mild tenderness of both hips and the left knee with good range of motion and relatively painless on those joints.) - Neuro Neuro: Alert and oriented X 3, Normal speech Eye Opening: Spontaneous - Psych Psych: Normal mood, Normal affect Results - Vitals Vitals: Vital Signs - 24 hr 10/05/23 10/05/23 15:23 17:27 Temperature 36.7 C Heart Rate 80 72 Respiratory 20 18 Rate Blood Pressure 136/76 H 114/83 H O2 Saturation 93 96 Oxygen O2 Source Room air - Rads (name of study) XR Both Hips and Knees are neg Relevant Findings:: Final report received, EMP independent interpretation of test PD Medical Decision Making - ED course ED course: She presents after a fall with injuries to both hips and both knees. The right knee is the worst. Imaging was negative with exception of degenerative changes and she was feeling better after a dose of Dilaudid here. After which she was able to walk and bear weight with the assistance of a walker and has 1 at home. Initially she was a little worried about going home and I did put in for home health with PT. Departure - Departure Disposition: 01 Home, Self Care Clinical Impression: Contusion of hip, left Qualifiers: Encounter type: initial encounter Qualified Code(s): S70.02XA - Contusion of left hip, initial encounter Contusion of right hip Qualifiers: Encounter type: initial encounter Qualified Code(s): S70.01XA - Contusion of right hip, initial encounter Contusion of right knee Qualifiers: Encounter type: initial encounter Qualified Code(s): S80.01XA - Contusion of right knee, initial encounter Contusion of left knee Qualifiers: Encounter type: initial encounter Qualified Code(s): S80.02XA - Contusion of left knee, initial encounter Condition: Good Record reviewed to determine appropriate education?: Yes Instructions: ED Sprain Knee Comments: If you need a lift assist you can call the [facility] emergency services nonemergency line at [phone]. They will help with lifting into and out of the house should you need it. Home health should be contacting you. Return for new or worsening symptoms.
[2023-10-05] MEDS: HYDROmorphone 1 MG/ML CARPUJECT IVP STA (15:51)
[2023-10-05] MEDS: ONDANSETRON 4 MG/2 ML VIAL IVP STA (15:51)
--- NOTE | 2023-10-05 16:33 | XRAY Report ---
PROCEDURE: Hips w/Pelvis 2-3V BL INDICATIONS: Bilateral hip injury TECHNIQUE: 4 view(s) of the hip were acquired. COMPARISON: 06/07/2017 FINDINGS: Bones: No fractures or dislocations. Moderate bilateral hip degeneration. Degenerative changes of th e visualized lower lumbar spine and pubic symphysis. No suspicious bony lesions. The visualized pel brittaney ring appears intact. Soft tissues: No suspicious soft tissue calcifications or masses. IMPRESSION: No acute bony abnormality. Reviewed by: Xavi Roberts MD on 10/05/2023 4:32 PM PDT Approved by: Xavi Roberts MD on 10/05/2023 4:32 PM PDT Station ID: [id number]
--- NOTE | 2023-10-05 16:36 | XRAY Report ---
PROCEDURE: Knee 4+V BL INDICATIONS: Bilateral knee injury right greater than left TECHNIQUE: 7 views of the knee(s) were acquired. COMPARISON: None. FINDINGS: Bones: No fractures or dislocations. Moderate degenerative changes of bilateral knees. No suspicious bony lesions. Soft tissues: No knee joint effusion. No suspicious soft tissue calcifications or masses. IMPRESSION: No acute bony abnormality. Moderate degenerative changes of the bilateral knees. Reviewed by: Xavi Roberts MD on 10/05/2023 4:34 PM PDT Approved by: Xavi Roberts MD on 10/05/2023 4:34 PM PDT Station ID: [id number]
[2023-10-05 17:35] VITALS: O2SAT 96
[2023-10-05 17:54] VITALS: BP 114/82
== END 2023-10-05 17:52 | disposition home or self-care (01) ==
LOC: ED 15:08
DX: S70.02XA Contusion of left hip, initial encounter (principal); S70.01XA Contusion of right hip, initial encounter; S80.02XA Contusion of left knee, initial encounter; S80.01XA Contusion of right knee, initial encounter; W01.0XXA Fall on same level from slipping, tripping and stumbling without subsequent striking against object, initial encounter; E78.00 Pure hypercholesterolemia, unspecified; J45.909 Unspecified asthma, uncomplicated; F32.A Depression, unspecified; M79.7 Fibromyalgia; R00.0 Tachycardia, unspecified
CPT/HCPCS: 73521; 73564; 96374; 99284; J1170